=== PATIENT | female | born 1965 | race Caucasian/White ===

== ENCOUNTER 2016-11-04 06:59 | Emergency (ER) | payer OTHER ==
[~2016-11-04] VITALS: Ht 160 cm; Wt 77.0 kg
[~2016-11-04 06:59] MED LIST: ATOR40TA16 PO; B-COTAB27 PO; BIOTCAP PO; CULTCAP2; GNP3TAB; MELA10TA; ZOFR8TAB PO
[2016-11-04 07:05] VITALS: BP 173/89; PULSE 95; RESP 20; TEMP 97.9; O2SAT 97
[2016-11-04] MEDS ORDERED: SODIUM CHLOR 0.9% 1000 ML INJ 1,000 ML IV SCH (07:12)
[2016-11-04] MEDS ORDERED: FAMOTIDINE 20 MG/2 ML VIAL IV PUSH ONE (07:15)
[2016-11-04] MEDS ORDERED: ALUMINUM/MAGNESIUM/SIMETH 30 ML CUP PO ONE (07:15)
[2016-11-04] MEDS ORDERED: CARA1TAB6 PO (07:15)
[2016-11-04] MEDS ORDERED: PROM25TA10 PO (07:15)
[2016-11-04] MEDS ORDERED: ONDANSETRON HCL 4 MG/2 ML VIAL IVP ONE (07:15)
[2016-11-04] MEDS ORDERED: LIDOCAINE VISCOUS 2% SOLN 15 ML UDC PO ONE (07:15)
[2016-11-04] MEDS ORDERED: SODIUM CHLORIDE 0.9% FLUSH 10 ML FLUSH IV FLUSH PRN (07:15)
--- NOTE | 2016-11-04 07:18 | PD ---
HPI Chief Complaint: nausea and vomiting Time Seen by Provider: 07:12 Travel History International Travel<30 days: No Contact w/Intl Traveler<30days: No History of Present Illness HPI Patient is a 50-year-old female with history of chronic and recurrent nausea with unknown etiology, bipolar disorder, GERD, presents to emergency room with complaints of nausea and vomiting. Patient reports that she woke up this morning around 5 AM and felt nauseous. Patient reports that she has had intractable nausea and vomiting since this morning. Patient has taken Zofran as well as Phenergan this morning without relief of her symptoms. She does see Dr. Leiva (math and physics instructor) for these symptoms. Patient denies any fevers or chills, denies any sick contacts. Denies any recent travels. She denies any chest pain or shortness breath at this time. Patient reports that she felt final yesterday, she did have a hamburger for dinner and tolerated it without difficultly. PFSH Past Medical History Blood Disorders: No Anxiety: Yes Depression: Yes Cancer: No Cardiac Catheterization: Yes Cardiovascular Problems: Yes (AGE 34 HAD A CARDIAC CATH PT STATES IT WAS NEGATIVE) High Cholesterol: Yes Diabetes: Yes (HAS BEEN ON MEDS BEFORE BORDERLINE) Diminished Hearing: No Endocrine: Yes Gastrointestinal Disorders: Yes (DIVERTICULITIS) GERD: No Genitourinary: No Hepatitis: No Hiatal Hernia: No Immune Disorder: No Musculoskeletal: No Neurologic: No Psychiatric: Yes (manic depressive d/o) Reproductive: No Respiratory: No Thyroid Disease: No : 8 Para: 3 Miscarriage: 3 : 2 Tubal Ligation: Yes Past Surgical History Abdominal Surgery: Yes ("1 FOOT OF BOWEL REMOVED DUE TO DIVERTICULITIS") Section: Yes (x2) Gynecologic Surgery: Yes (HYSTERECTOMY, TUBAL C SECTION X 2) Hysterectomy: Yes (partial) Other Surgery: Yes (DIVERTICULI REPAIR EXPLORATORY SX, LEFT BREAST LUMP REMOVED ) Social History Alcohol Use: No Tobacco Use: No Substance Use: Yes (MARIJUANA EVERY DAY) Allergies-Medications (Allergen,Severity, Reaction): Coded Allergies: acetaminophen (Unverified Allergy, Severe, Itching, 11/04/16) hydrocodone (Unverified Allergy, Severe, ITCHING, 11/04/16) AND FAMILY OF CETS oxycodone (Unverified Allergy, Severe, Itching, 11/04/16) propoxyphene (Unverified Allergy, Severe, Itching, 11/04/16) Reported Meds & Prescriptions Reported Meds & Active Scripts Active Atorvastatin (Atorvastatin Calcium) 40 Mg Tab 40 Mg PO HS Reported Phenergan (Promethazine HCl) 25 Mg Tablet 25 Mg PO Q6H PRN Carafate (Sucralfate) 1 Gram Tab 1 Gm PO QID On empty stomach Review of Systems General / Constitutional: No: Fever Eyes: No: Visual changes HENT: No: Headaches Cardiovascular: No: Chest Pain or Discomfort Respiratory: No: Shortness of Breath Gastrointestinal: Positive: Nausea, Vomiting, Abdominal Pain Genitourinary: No: Dysuria Musculoskeletal: No: Pain Skin: No Rash Neurologic: No: Weakness Psychiatric: No: Depression Endocrine: No: Polydipsia Hematologic/Lymphatic: No: Easy Bruising Physical Exam Narrative GENERAL: moderate distress SKIN: Focused skin assessment warm/dry. HEAD: Atraumatic. Normocephalic. EYES: Pupils equal and round. No scleral icterus. No injection or drainage. ENT: No nasal bleeding or discharge. Mucous membranes pink and moist. NECK: Trachea midline. No JVD. CARDIOVASCULAR: Regular rate and rhythm. No murmur appreciated. RESPIRATORY: No accessory muscle use. Clear to auscultation. Breath sounds equal bilaterally. GASTROINTESTINAL: Abdomen soft, mildly tender to epigastrium, nondistended. Hepatic and splenic margins not palpable. MUSCULOSKELETAL: No obvious deformities. No clubbing. No cyanosis. No edema. NEUROLOGICAL: Awake and alert. No obvious cranial nerve deficits. Motor grossly within normal limits. Normal speech. PSYCHIATRIC: Appropriate mood and affect; insight and judgment normal. Data Data Last Documented VS Vital Signs Date Time Temp Pulse Resp B/P (MAP) Pulse Ox O2 Delivery O2 Flow Rate FiO2 11/04/16 08:38 88 18 151/72 (98) 98 Room Air 11/04/16 07:05 97.9 Orders Orders Complete Blood Count With Diff (11/04/16 07:12) Comprehensive Metabolic Panel (11/04/16 07:12) Lipase (11/04/16 07:12) Prothrombin Time / Inr (Pt) (11/04/16 07:12) Act Partial Throm Time (Ptt) (11/04/16 07:12) Urinalysis - C+S If Indicated (11/04/16 07:12) Iv Access Insert/Monitor (11/04/16 07:12) Ecg Monitoring (11/04/16 07:12) Oximetry (11/04/16 07:12) Ondansetron Inj (Zofran Inj) (11/04/16 07:15) Sodium Chlor 0.9% 1000 Ml Inj (Ns 1000 M (11/04/16 07:12) Sodium Chloride 0.9% Flush (Ns Flush) (11/04/16 07:15) Electrocardiogram (11/04/16 07:12) Famotidine Inj (Pepcid Inj) (11/04/16 07:15) Al-Mag Hy-Si 40-40-4 Mg/Ml Liq (Mag-Al P (11/04/16 07:15) Lidocaine 2% Viscous (Xylocaine 2% Visco (11/04/16 07:15) Ondansetron Inj (Zofran Inj) (11/04/16 08:15) Labs Laboratory Tests Test 11/04/16 07:37 11/04/16 08:10 White Blood Count 11.2 TH/MM3 Red Blood Count 5.14 MIL/MM3 Hemoglobin 15.6 GM/DL Hematocrit 45.4 % Mean Corpuscular Volume 88.3 FL Mean Corpuscular Hemoglobin 30.3 PG Mean Corpuscular Hemoglobin Concent 34.3 % Red Cell Distribution Width 12.3 % Platelet Count 225 TH/MM3 Mean Platelet Volume 9.0 FL Neutrophils (%) (Auto) 74.9 % Lymphocytes (%) (Auto) 18.9 % Monocytes (%) (Auto) 2.8 % Eosinophils (%) (Auto) 2.8 % Basophils (%) (Auto) 0.6 % Neutrophils # (Auto) 8.4 TH/MM3 Lymphocytes # (Auto) 2.1 TH/MM3 Monocytes # (Auto) 0.3 TH/MM3 Eosinophils # (Auto) 0.3 TH/MM3 Basophils # (Auto) 0.1 TH/MM3 CBC Comment AUTO DIFF Differential Comment AUTO DIFF CONFIRMED Prothrombin Time 10.4 SEC Prothromb Time International Ratio 0.9 RATIO Activated Partial Thromboplast Time 26.3 SEC Blood Urea Nitrogen 12 MG/DL Creatinine 1.00 MG/DL Random Glucose 255 MG/DL Total Protein 7.5 GM/DL Albumin 4.0 GM/DL Calcium Level 8.6 MG/DL Alkaline Phosphatase 77 U/L Aspartate Amino Transf (AST/SGOT) 33 U/L Alanine Aminotransferase (ALT/SGPT) 47 U/L Total Bilirubin 0.2 MG/DL Sodium Level 139 MEQ/L Potassium Level 4.1 MEQ/L Chloride Level 106 MEQ/L Carbon Dioxide Level 22.8 MEQ/L Anion Gap 10 MEQ/L Estimat Glomerular Filtration Rate 59 ML/MIN Lipase 201 U/L Urine Collection Type CLEAN CATCH Urine Color YELLOW Urine Turbidity SLIGHT Urine pH 5.5 Urine Specific [place] 1.027 Urine Protein NEG mg/dL Urine Glucose (UA) NEG mg/dL Urine Ketones TRACE mg/dL Urine Occult Blood NEG Urine Nitrite NEG Urine Bilirubin NEG Urine Leukocyte Esterase TRACE Urine WBC 3-5 /hpf Urine Squamous Epithelial Cells 6-8 /hpf Urine Amorphous Sediment MOD Microscopic Urinalysis Comment CULT NOT INDICATED Urine Collection Time 0810 MDM Medical Decision Making Medical Screen Exam Complete: Yes Emergency Medical Condition: Yes Interpretation(s) EKG at 0721: NSR at 87BPM, qt/qtc: 361/405, no acute st or t wave changes, non acute ekg Differential Diagnosis Differential includes gastritis, gastroenteritis, electrolyte abnormality, chronic and recurrent nausea, GERD, Gastroenteritis, ACS though unlikely Narrative Course Patient is a 50-year-old female who presents to emergency room with complaints of acute onset nausea and vomiting since 5 AM this morning. She does see Dr. Leiva (math and physics instructor) for treatment of her symptoms - reports that she took zofran as well as phenergen this morning with no relief of symptoms. Patient was placed on a radio communications mechanician upon arrival to emergency room. On evaluation, patient has mild epigastric pain. Plan to obtain lab work including liver function tests, EKG. Plan to hydrate patient, will administer antiemetics and monitor patient. Patient reevaluated, patient reports that she is feeling much better at this time. Reports near resolution of nausea. Abdomen is soft, nt/nd, no peritoneals signs. I reviewed all lab results with patient in detail. Patient requesting to be discharged to home. She will follow up with her math and physics instructor as outpatient. Signs and symptoms of when to return to the ER was reviewed with patient in detail. Vital Signs Date Time Temp Pulse Resp B/P (MAP) Pulse Ox O2 Delivery O2 Flow Rate FiO2 11/04/16 07:19 97 Room Air 11/04/16 07:05 97.9 95 20 173/89 (117) 97 CBC & BMP Diagram 11/04/16 07:37 Total Protein 7.5, Albumin 4.0, Calcium Level 8.6, Alkaline Phosphatase 77, Aspartate Amino Transf (AST/SGOT) 33, Alanine Aminotransferase (ALT/SGPT) 47, Total Bilirubin 0.2 Diagnosis Primary Impression: Nausea & vomiting Qualified Codes: R11.2 - Nausea with vomiting, unspecified Additional Impressions: Abdominal pain Qualified Codes: R10.13 - Epigastric pain Dehydration Patient Instructions: General Instructions Additional Instructions: Please follow up with your math and physics instructor as outpatient Return to ER as needed Return to ER if symptoms worsen or progress Please eat a bland diet and drink plenty of fluids Disposition: 01 DISCHARGE HOME Condition: Stable Rianna Peralta DO Nov 04, 2016 07:18
[2016-11-04 07:19] VITALS: O2SAT 97
[2016-11-04 07:47] LABS: AUTOMATED NEUTROPHIL # 8.4 TH/MM3 (1.8-7.7); BASOPHIL # 0.1 TH/MM3 (0-0.2); BASOPHIL % 0.6 % (0.0-2.0); EOSINOPHIL # 0.3 TH/MM3 (0-0.4); EOSINOPHIL % 2.8 % (0.0-4.0); HEMATOCRIT 45.4 % (35.0-46.0); LYMPH % 18.9 % (9.0-44.0); LYMPHOCYTE # 2.1 TH/MM3 (1.0-4.8); MEAN CELL VOLUME 88.3 FL (80.0-100.0); MEAN CORPUSCULAR HEMOGLOBIN 30.3 PG (27.0-34.0); MEAN CORPUSCULAR HGB CONC 34.3 % (32.0-36.0); MONO % 2.8 % (0.0-8.0); NEUT % 74.9 % (16.0-70.0); PLATELET COUNT 225 TH/MM3 (150-450); RED BLOOD COUNT 5.14 MIL/MM3 (4.00-5.30); RED CELL DISTRIBUTION WIDTH 12.3 % (11.6-17.2); WHITE BLOOD COUNT 11.2 TH/MM3 (4.0-11.0)
[2016-11-04 07:51] LABS: CHLORIDE 106 MEQ/L (98-107); HEMO FLAGS AUTO DIFF; POTASSIUM 4.1 MEQ/L (3.5-5.1); SODIUM (NA) 139 MEQ/L (136-145)
[2016-11-04 07:56] LABS: ANION GAP 10 MEQ/L (5-15); APTT (PATIENT) 26.3 SEC (24.3-30.1); BICARBONATE 22.8 MEQ/L (21.0-32.0); BLOOD UREA NITROGEN 12 MG/DL (7-18); INTERNATIONAL NORMALIZED RATIO 0.9 RATIO; PROTHROMBIN TIME - PATIENT 10.4 SEC (9.8-11.6)
[2016-11-04 07:58] LABS: ALT (GPT) 47 U/L (10-53)
[2016-11-04 07:59] LABS: AST (GOT) 33 U/L (15-37); GLOMERULAR FILTRATION RATE 59 ML/MIN (>89)
[2016-11-04 08:00] LABS: TOTAL BILIRUBIN ADULT 0.2 MG/DL (0.2-1.0)
[2016-11-04 08:01] LABS: ALKALINE PHOSPHATASE 77 U/L (45-117)
[2016-11-04] MEDS ORDERED: ONDANSETRON HCL 4 MG/2 ML VIAL IV PUSH ONE (08:15)
[2016-11-04 08:21] LABS: BLOOD, URINE NEG (NEG); GLUCOSE,URINE NEG (NEG); KETONE, URINE TRACE mg/dL (NEG); NITRITE,URINE NEG (NEG); PH, URINE 5.5 (5.0-8.5)
[2016-11-04 08:24] LABS: METHOD OF COLLECTION CLEAN CATCH; URINE COLOR YELLOW (YELLW/STRAW)
[2016-11-04 08:27] LABS: COMMENT (UR) CULT NOT INDICATED; COMMENT2 (UR) MUCOUS PRESENT; CULTURE IF INDICATED CULT NOT INDICATED
[2016-11-04 08:30] LABS: SCAN/DIFF AUTO DIFF CONFIRMED
[2016-11-04 08:38] VITALS: BP 151/72; PULSE 88; RESP 18; O2SAT 98
--- NOTE | 2016-11-05 07:58 | EKG ---
Date Performed: 11/04/2016 Time Performed: 07:21:13 PTAGE: 50 years EKG: Sinus rhythm NORMAL ECG PREVIOUS TRACING : 11/20/2015 06.30 Since previous tracing, no significant change. DOCTOR: Ricardo Salmon Interpretating Date/Time 11/05/2016 07:56:39
== END 2016-11-04 08:50 | disposition home or self-care (01) ==
LOC: PHED 06:59
DX: R11.2 Nausea with vomiting, unspecified (principal); R10.13 Epigastric pain; E86.0 Dehydration
CPT/HCPCS: 80053; 81001; 83690; 85025; 85610; 85730; 93005; 96361; 96374; 96375; 96376; 99284; J2405; J7030

== ENCOUNTER 2016-12-15 06:40 | Emergency (ER) | payer OTHER ==
[~2016-12-15] VITALS: Ht 160 cm; Wt 71.0 kg
[~2016-12-15 06:40] MED LIST changes: -B-COTAB27 PO; -BIOTCAP PO; +CARA1TAB6 PO; -CULTCAP2; -GNP3TAB; -MELA10TA; +PROM25TA10 PO; -ZOFR8TAB PO
[2016-12-15 06:45] VITALS: BP 140/87; PULSE 101; RESP 18; TEMP 97.5; O2SAT 99
[2016-12-15 06:47] VITALS: BP 179/112; PULSE 108; RESP 20; TEMP 98.1; O2SAT 98
--- NOTE | 2016-12-15 06:49 | PD ---
HPI Chief Complaint: abdominal pain Time Seen by Provider: 06:49 Travel History International Travel<30 days: No Contact w/Intl Traveler<30days: No Traveled to known affect area: No History of Present Illness HPI 51-year-old female came in with history of severe abdominal pain that started 2 days ago. Patient is in significant distress and anxious and not a good historian at this point. I have obtained most of the history from her daughter. As per her she has had this kind of pain for past 2 years. She has a GI specialist whose has worked her up significantly with upper endoscopy and an MRI one week ago which was negative. Patient has history of diverticulitis and had partial colectomy couple years ago as well. She has been nauseous and trying to vomit but not much is coming out. Patient has history of anxiety. She was tachycardic in the ER. [facility] Past Medical History Narrative Medical List of her past medical, surgical, social and family history was reviewed from the nursing note. Blood Disorders: No Anxiety: Yes Depression: Yes Cancer: No Cardiac Catheterization: Yes Cardiovascular Problems: Yes (AGE 34 HAD A CARDIAC CATH PT STATES IT WAS NEGATIVE) High Cholesterol: Yes Diabetes: Yes (HAS BEEN ON MEDS BEFORE BORDERLINE) Diminished Hearing: No Endocrine: Yes Gastrointestinal Disorders: Yes (DIVERTICULITIS) GERD: No Genitourinary: No Hepatitis: No Hiatal Hernia: No Immune Disorder: No Musculoskeletal: No Neurologic: No Psychiatric: Yes (manic depressive d/o) Reproductive: No Respiratory: No Thyroid Disease: No : 8 Para: 3 Miscarriage: 3 : 2 Tubal Ligation: Yes Past Surgical History Abdominal Surgery: Yes ("1 FOOT OF BOWEL REMOVED DUE TO DIVERTICULITIS") Section: Yes (x2) Gynecologic Surgery: Yes (HYSTERECTOMY, TUBAL C SECTION X 2) Hysterectomy: Yes (partial) Other Surgery: Yes (DIVERTICULI REPAIR EXPLORATORY SX, LEFT BREAST LUMP REMOVED ) Social History Alcohol Use: No Tobacco Use: No Substance Use: Yes (MARIJUANA EVERY DAY) Allergies-Medications (Allergen,Severity, Reaction): Coded Allergies: acetaminophen (Verified Allergy, Severe, Itching, 12/15/16) hydrocodone (Verified Allergy, Severe, ITCHING, 12/15/16) AND FAMILY OF CETS oxycodone (Verified Allergy, Severe, Itching, 12/15/16) propoxyphene (Verified Allergy, Severe, Itching, 12/15/16) Comments List of her allergies reviewed from the nursing note. Reported Meds & Prescriptions Reported Meds & Active Scripts Active Reglan (Metoclopramide HCl) 10 Mg Tab 10 Mg PO QID Atorvastatin (Atorvastatin Calcium) 40 Mg Tab 40 Mg PO HS Reported Phenergan (Promethazine HCl) 25 Mg Tablet 25 Mg PO Q6H PRN Carafate (Sucralfate) 1 Gram Tab 1 Gm PO QID On empty stomach Narrative Medication List of her home medications reviewed from the nursing note. Review of Systems Except as stated in HPI: all other systems reviewed are Neg Gastrointestinal: Positive: Nausea, Vomiting, Abdominal Pain Physical Exam Narrative GENERAL: Awake, alert, significant distress, extremely anxious SKIN: Focused skin assessment warm/dry. HEAD: Atraumatic. Normocephalic. EYES: Pupils equal and round. No scleral icterus. No injection or drainage. ENT: No nasal bleeding or discharge. Mucous membranes pink and moist. NECK: Trachea midline. No JVD. CARDIOVASCULAR: Regular rate and rhythm. No murmur appreciated. RESPIRATORY: No accessory muscle use. Clear to auscultation. Breath sounds equal bilaterally. GASTROINTESTINAL: Abdomen soft, non-tender, nondistended. Hepatic and splenic margins not palpable. MUSCULOSKELETAL: No obvious deformities. No clubbing. No cyanosis. No edema. NEUROLOGICAL: Awake and alert. No obvious cranial nerve deficits. Motor grossly within normal limits. Normal speech. PSYCHIATRIC: Appropriate mood and affect; insight and judgment normal. Data Data Last Documented VS Orders Orders Complete Blood Count With Diff (12/15/16 06:54) Comprehensive Metabolic Panel (12/15/16 06:54) Lipase (12/15/16 06:54) Iv Access Insert/Monitor (12/15/16 06:54) Ecg Monitoring (12/15/16 06:54) Oximetry (12/15/16 06:54) Sodium Chlor 0.9% 1000 Ml Inj (Ns 1000 M (12/15/16 06:54) Sodium Chloride 0.9% Flush (Ns Flush) (12/15/16 07:00) Lorazepam Inj (Ativan Inj) (12/15/16 07:00) Abdomen, Flat & Upright (12/15/16 07:21) Lorazepam Inj (Ativan Inj) (12/15/16 09:15) Ed Discharge Order (12/15/16 09:10) Labs Laboratory Tests Test 12/15/16 06:50 White Blood Count 14.4 TH/MM3 Red Blood Count 5.02 MIL/MM3 Hemoglobin 15.7 GM/DL Hematocrit 44.8 % Mean Corpuscular Volume 89.3 FL Mean Corpuscular Hemoglobin 31.2 PG Mean Corpuscular Hemoglobin Concent 35.0 % Red Cell Distribution Width 13.6 % Platelet Count 302 TH/MM3 Mean Platelet Volume 9.2 FL Neutrophils (%) (Auto) 78.1 % Lymphocytes (%) (Auto) 16.4 % Monocytes (%) (Auto) 4.0 % Eosinophils (%) (Auto) 1.1 % Basophils (%) (Auto) 0.4 % Neutrophils # (Auto) 11.3 TH/MM3 Lymphocytes # (Auto) 2.4 TH/MM3 Monocytes # (Auto) 0.6 TH/MM3 Eosinophils # (Auto) 0.2 TH/MM3 Basophils # (Auto) 0.1 TH/MM3 CBC Comment DIFF FINAL Differential Comment Blood Urea Nitrogen 12 MG/DL Creatinine 1.07 MG/DL Random Glucose 232 MG/DL Total Protein 7.7 GM/DL Albumin 4.3 GM/DL Calcium Level 9.5 MG/DL Alkaline Phosphatase 77 U/L Aspartate Amino Transf (AST/SGOT) 28 U/L Alanine Aminotransferase (ALT/SGPT) 43 U/L Total Bilirubin 0.4 MG/DL Sodium Level 139 MEQ/L Potassium Level 3.9 MEQ/L Chloride Level 108 MEQ/L Carbon Dioxide Level 19.4 MEQ/L Anion Gap 12 MEQ/L Estimat Glomerular Filtration Rate 54 ML/MIN Lipase 132 U/L [facility] Medical Decision Making Medical Screen Exam Complete: Yes Emergency Medical Condition: Yes Medical Record Reviewed: Yes Differential Diagnosis Cyclic vomiting syndrome, small bowel obstruction, acute gastritis Narrative Course 7:17 AM patient was given IV fluid bolus and IV Ativan. Awaiting for the blood test result. Case has been signed over to the oncoming ER physician. Procedures EKG Prior to Arrival: No Scripts Metoclopramide (Reglan) 10 Mg Tab 10 MG PO QID, #20 TAB 0 Refills Prov: Al Dunbar MD 12/15/16 Loy Tomlinson MD Dec 15, 2016 06:49
[2016-12-15] MEDS ORDERED: SODIUM CHLOR 0.9% 1000 ML INJ 1,000 ML IV SCH (06:54)
[2016-12-15] MEDS ORDERED: SODIUM CHLORIDE 0.9% FLUSH 10 ML FLUSH IV FLUSH PRN (07:00)
[2016-12-15] MEDS ORDERED: LORazepam 2 MG/ML VIAL IV PUSH ONE ×2 (07:00→09:15)
[2016-12-15 07:04] VITALS: O2SAT 97
--- NOTE | 2016-12-15 07:31 | PD ---
Physical Exam Date Seen by Provider: Dec 15, 2016 Narrative GENERAL: SKIN: Warm and dry. HEAD: Atraumatic. Normocephalic. EYES: Pupils equal and round. No scleral icterus. No injection or drainage. ENT: No nasal bleeding or discharge. Mucous membranes pink and moist. NECK: Trachea midline. No JVD. CARDIOVASCULAR: Regular rate and rhythm. RESPIRATORY: No accessory muscle use. Clear to auscultation. Breath sounds equal bilaterally. GASTROINTESTINAL: Abdomen soft, non-tender, nondistended. however hypoactive bowel sounds appreciated but without rebound/guarding/rigidity MUSCULOSKELETAL: Extremities without clubbing, cyanosis, or edema. No obvious deformities. NEUROLOGICAL: Awake and alert. No obvious cranial nerve deficits. Motor grossly within normal limits. Five out of 5 muscle strength in the arms and legs. Normal speech. PSYCHIATRIC: Appropriate mood and affect; insight and judgment normal. Data Data Last Documented VS Vital Signs Date Time Temp Pulse Resp B/P (MAP) Pulse Ox O2 Delivery O2 Flow Rate FiO2 12/15/16 07:04 97 Room Air 12/15/16 06:47 98.1 108 20 Orders Orders Complete Blood Count With Diff (12/15/16 06:54) Comprehensive Metabolic Panel (12/15/16 06:54) Lipase (12/15/16 06:54) Iv Access Insert/Monitor (12/15/16 06:54) Ecg Monitoring (12/15/16 06:54) Oximetry (12/15/16 06:54) Sodium Chlor 0.9% 1000 Ml Inj (Ns 1000 M (12/15/16 06:54) Sodium Chloride 0.9% Flush (Ns Flush) (12/15/16 07:00) Lorazepam Inj (Ativan Inj) (12/15/16 07:00) Abdomen, Flat & Upright (12/15/16 07:21) Labs Laboratory Tests Test 12/15/16 06:50 White Blood Count 14.4 TH/MM3 Red Blood Count 5.02 MIL/MM3 Hemoglobin 15.7 GM/DL Hematocrit 44.8 % Mean Corpuscular Volume 89.3 FL Mean Corpuscular Hemoglobin 31.2 PG Mean Corpuscular Hemoglobin Concent 35.0 % Red Cell Distribution Width 13.6 % Platelet Count 302 TH/MM3 Mean Platelet Volume 9.2 FL Neutrophils (%) (Auto) 78.1 % Lymphocytes (%) (Auto) 16.4 % Monocytes (%) (Auto) 4.0 % Eosinophils (%) (Auto) 1.1 % Basophils (%) (Auto) 0.4 % Neutrophils # (Auto) 11.3 TH/MM3 Lymphocytes # (Auto) 2.4 TH/MM3 Monocytes # (Auto) 0.6 TH/MM3 Eosinophils # (Auto) 0.2 TH/MM3 Basophils # (Auto) 0.1 TH/MM3 CBC Comment DIFF FINAL Differential Comment Blood Urea Nitrogen 12 MG/DL Creatinine 1.07 MG/DL Random Glucose 232 MG/DL Total Protein 7.7 GM/DL Albumin 4.3 GM/DL Calcium Level 9.5 MG/DL Alkaline Phosphatase 77 U/L Aspartate Amino Transf (AST/SGOT) 28 U/L Alanine Aminotransferase (ALT/SGPT) 43 U/L Total Bilirubin 0.4 MG/DL Sodium Level 139 MEQ/L Potassium Level 3.9 MEQ/L Chloride Level 108 MEQ/L Carbon Dioxide Level 19.4 MEQ/L Anion Gap 12 MEQ/L Estimat Glomerular Filtration Rate 54 ML/MIN Lipase 132 U/L [facility] Medical Record Reviewed: Yes Supervised Visit with OMAR: No Narrative Course patient reevaluation, patient no longer vomiting, no rebound/guarding/rigidity noted. patient abd series are neg for a/f levels and no free air. no electrolyte abnl, no pancreatitis, no elev lft's will d/c Diagnosis Primary Impression: vomiting (resolved) Patient Instructions: General Instructions Additional Instruction: please follow up with your gastrointestinal specialist for further evaluation and care Scripts Metoclopramide (Reglan) 10 Mg Tab 10 MG PO QID, #20 TAB 0 Refills Prov: Al Dunbar MD 12/15/16 Disposition: 01 DISCHARGE HOME Condition: Stable Al Dunbar MD Dec 15, 2016 07:31
[2016-12-15 07:50] LABS: AUTOMATED NEUTROPHIL # 11.3 TH/MM3 (1.8-7.7); BASOPHIL # 0.1 TH/MM3 (0-0.2); BASOPHIL % 0.4 % (0.0-2.0); EOSINOPHIL # 0.2 TH/MM3 (0-0.4); EOSINOPHIL % 1.1 % (0.0-4.0); HEMATOCRIT 44.8 % (35.0-46.0); HEMOGLOBIN 15.7 GM/DL (11.6-15.3); LYMPH % 16.4 % (9.0-44.0); LYMPHOCYTE # 2.4 TH/MM3 (1.0-4.8); MEAN CELL VOLUME 89.3 FL (80.0-100.0); MEAN CORPUSCULAR HEMOGLOBIN 31.2 PG (27.0-34.0); MEAN PLATELET VOLUME 9.2 FL (7.0-11.0); MONOCYTE # 0.6 TH/MM3 (0-0.9); NEUT % 78.1 % (16.0-70.0); PLATELET COUNT 302 TH/MM3 (150-450); RED BLOOD COUNT 5.02 MIL/MM3 (4.00-5.30); RED CELL DISTRIBUTION WIDTH 13.6 % (11.6-17.2); WHITE BLOOD COUNT 14.4 TH/MM3 (4.0-11.0)
[2016-12-15 08:08] LABS: ALKALINE PHOSPHATASE 77 U/L (45-117); ALT (GPT) 43 U/L (10-53); TOTAL BILIRUBIN ADULT 0.4 MG/DL (0.2-1.0); TOTAL PROTEIN 7.7 GM/DL (6.4-8.2)
[2016-12-15 08:11] LABS: ALBUMIN 4.3 GM/DL (3.4-5.0); AST (GOT) 28 U/L (15-37); BICARBONATE 19.4 MEQ/L (21.0-32.0); BLOOD UREA NITROGEN 12 MG/DL (7-18); CALCIUM 9.5 MG/DL (8.5-10.1); CHLORIDE 108 MEQ/L (98-107); CREATININE 1.07 MG/DL (0.50-1.00); GLOMERULAR FILTRATION RATE 54 ML/MIN (>89); GLUCOSE,RANDOM 232 MG/DL (74-106); LIPASE 132 U/L (73-393); SODIUM (NA) 139 MEQ/L (136-145)
[2016-12-15] MEDS ORDERED: REGL10TA5 PO (09:09)
--- NOTE | 2016-12-15 09:16 | RADRPT ---
EXAM DATE/TIME: 12/15/2016 08:49 [place] COMPARISON: ABDOMEN FLAT & UPRIGHT, August 02, 2013, 19:12. INDICATIONS : Vomiting for past 5 years. MEDICAL HISTORY : Diverticulitis. Hypercholesterolemia. SURGICAL HISTORY : Hysterectomy. section. Tubal ligation. Bladder sling. ENCOUNTER: Initial ACUITY: 1 day PAIN SCORE: 8/10 LOCATION: Across abdomen. FINDINGS: Moderate amount of stool throughout the colon. General paucity of small bowel gas. No dilated loops o f small bowel or air-fluid levels. No free air or pneumatosis. No abnormal calcifications. Tubal liga tion clips in place. Right upper quadrant surgical clips. Remainder of exam is unchanged. CONCLUSION: 1. Nonobstructive bowel gas pattern with colonic stool retention. Williams Wu MD on December 15, 2016 at 9:12 Board Certified Radiologist. This report was verified electronically.
== END 2016-12-15 10:35 | disposition home or self-care (01) ==
LOC: NEPE 06:40
DX: R11.2 Nausea with vomiting, unspecified (principal); R00.0 Tachycardia, unspecified; F41.9 Anxiety disorder, unspecified; F32.9 Major depressive disorder, single episode, unspecified; E78.00 Pure hypercholesterolemia, unspecified; E11.9 Type 2 diabetes mellitus without complications; F31.9 Bipolar disorder, unspecified; Z79.899 Other long term (current) drug therapy; Z87.19 Personal history of other diseases of the digestive system; Z88.5 Allergy status to narcotic agent
CPT/HCPCS: 74020; 80053; 83690; 85025; 96361; 96374; 96376; 99284; J2060; J7030

== ENCOUNTER 2017-01-10 02:25 | Emergency (ER) | payer OTHER ==
[~2017-01-10] VITALS: Ht 160 cm; Wt 74.5 kg
[~2017-01-10 02:25] MED LIST changes: +REGL10TA5 PO
[2017-01-10 02:30] VITALS: BP 141/87; PULSE 94; RESP 24; TEMP 98.1; O2SAT 98
[2017-01-10 02:41] VITALS: BP 141/87; PULSE 94; RESP 20; TEMP 98.1; O2SAT 98
--- NOTE | 2017-01-10 02:43 | PD ---
HPI Chief Complaint: GI Complaint Time Seen by Provider: 02:41 Travel History International Travel<30 days: No Contact w/Intl Traveler<30days: No Traveled to known affect area: No History of Present Illness HPI 51-year-old female patient with history of gastroparesis, has postcholecystectomy, frequent visits for chronic abdominal pain and vomiting, here because he started again night, vomiting 3 times, 810 periumbilical abdominal pains. 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 She denies any diarrhea, fevers, or other symptoms. She does not know exacerbating alleviating factors. She states it feels like her other episodes. Modifying Factors: None Associated Signs & Symptoms: Abdominal pains, nausea and vomiting Risk Factors: History of chronic abdominal pains, gastroparesis PFSH Past Medical History Blood Disorders: No Anxiety: Yes Depression: Yes Cancer: No Cardiac Catheterization: Yes Cardiovascular Problems: Yes High Cholesterol: Yes Diabetes: Yes (HX) Diminished Hearing: No Endocrine: Yes Gastrointestinal Disorders: Yes (DIVERTICULITIS) GERD: No Genitourinary: No Hepatitis: No Hiatal Hernia: No Immune Disorder: No Musculoskeletal: No Neurologic: No Psychiatric: Yes (manic depressive d/o) Reproductive: No Respiratory: No Thyroid Disease: No : 8 Para: 3 Miscarriage: 3 : 2 Tubal Ligation: Yes Past Surgical History Abdominal Surgery: Yes ("1 FOOT OF BOWEL REMOVED DUE TO DIVERTICULITIS") Section: Yes (x2) Cholecystectomy: Yes Gynecologic Surgery: Yes (HYSTERECTOMY, TUBAL C SECTION X 2) Hysterectomy: Yes (partial) Other Surgery: Yes (DIVERTICULI REPAIR EXPLORATORY SX, LEFT BREAST LUMP REMOVED ) Social History Alcohol Use: No Tobacco Use: No Substance Use: Yes (MARIJUANA EVERY DAY) Allergies-Medications (Allergen,Severity, Reaction): Coded Allergies: acetaminophen (Verified Allergy, Severe, Itching, 01/10/17) hydrocodone (Verified Allergy, Severe, ITCHING, 01/10/17) AND FAMILY OF CETS oxycodone (Verified Allergy, Severe, Itching, 01/10/17) propoxyphene (Verified Allergy, Severe, Itching, 01/10/17) Reported Meds & Prescriptions Reported Meds & Active Scripts Active Reglan (Metoclopramide HCl) 10 Mg Tab 10 Mg PO QID Atorvastatin (Atorvastatin Calcium) 40 Mg Tab 40 Mg PO HS Reported Zofran (Ondansetron HCl) 4 Mg Tab 4 Mg PO Q6HR PRN Phenergan (Promethazine HCl) 25 Mg Tablet 25 Mg PO Q6H PRN Carafate (Sucralfate) 1 Gram Tab 1 Gm PO QID On empty stomach Review of Systems Except as stated in HPI: all other systems reviewed are Neg Physical Exam Narrative GENERAL: Well-developed middle age white female patient who currently is fairly anxious, in moderate distress. Awake and oriented 3. SKIN: Focused skin assessment warm/dry. HEAD: Atraumatic. Normocephalic. EYES: Pupils equal and round. No scleral icterus. No injection or drainage. ENT: No nasal bleeding or discharge. Mucous membranes pink and moist. NECK: Trachea midline. No JVD. CARDIOVASCULAR: Regular rate and rhythm. No murmur appreciated. RESPIRATORY: No accessory muscle use. Clear to auscultation. Breath sounds equal bilaterally. GASTROINTESTINAL: Abdomen soft, mild periumbilical tenderness without guarding or rebound, nondistended. Hepatic and splenic margins not palpable. MUSCULOSKELETAL: No obvious deformities. No clubbing. No cyanosis. No edema. NEUROLOGICAL: Awake and alert. No obvious cranial nerve deficits. Motor grossly within normal limits. Normal speech. PSYCHIATRIC: Appropriate mood and affect; insight and judgment normal. Data Data Last Documented VS Vital Signs Date Time Temp Pulse Resp B/P (MAP) Pulse Ox O2 Delivery O2 Flow Rate FiO2 01/10/17 03:23 20 01/10/17 03:22 93 164/71 (102) 98 Room Air 01/10/17 02:41 98.1 Orders Orders Complete Blood Count With Diff (01/10/17 02:37) Comprehensive Metabolic Panel (01/10/17 02:37) Lipase (01/10/17 02:37) Iv Access Insert/Monitor (01/10/17 02:37) Ecg Monitoring (01/10/17 02:37) Oximetry (01/10/17 02:37) Sodium Chloride 0.9% Flush (Ns Flush) (01/10/17 02:45) Electrocardiogram (01/10/17 02:37) Metoclopramide Inj (Reglan Inj) (01/10/17 02:45) Diphenhydramine Inj (Benadryl Inj) (01/10/17 02:45) Sodium Chlorid 0.9% 500 Ml Inj (Ns 500 M (01/10/17 02:45) Abdomen, Flat & Upright (01/10/17 03:08) Lorazepam Inj (Ativan Inj) (01/10/17 03:30) Labs Laboratory Tests Test 01/10/17 02:50 White Blood Count 10.7 TH/MM3 Red Blood Count 5.13 MIL/MM3 Hemoglobin 15.3 GM/DL Hematocrit 45.7 % Mean Corpuscular Volume 89.0 FL Mean Corpuscular Hemoglobin 29.9 PG Mean Corpuscular Hemoglobin Concent 33.5 % Red Cell Distribution Width 12.7 % Platelet Count 241 TH/MM3 Mean Platelet Volume 8.8 FL Neutrophils (%) (Auto) 69.7 % Lymphocytes (%) (Auto) 24.0 % Monocytes (%) (Auto) 3.2 % Eosinophils (%) (Auto) 2.3 % Basophils (%) (Auto) 0.8 % Neutrophils # (Auto) 7.5 TH/MM3 Lymphocytes # (Auto) 2.6 TH/MM3 Monocytes # (Auto) 0.3 TH/MM3 Eosinophils # (Auto) 0.2 TH/MM3 Basophils # (Auto) 0.1 TH/MM3 CBC Comment DIFF FINAL Differential Comment Blood Urea Nitrogen 15 MG/DL Creatinine 0.94 MG/DL Random Glucose 193 MG/DL Total Protein 7.5 GM/DL Albumin 3.7 GM/DL Calcium Level 9.0 MG/DL Alkaline Phosphatase 86 U/L Aspartate Amino Transf (AST/SGOT) 10 U/L Alanine Aminotransferase (ALT/SGPT) 27 U/L Total Bilirubin 0.2 MG/DL Sodium Level 137 MEQ/L Potassium Level 3.9 MEQ/L Chloride Level 104 MEQ/L Carbon Dioxide Level 24.1 MEQ/L Anion Gap 9 MEQ/L Estimat Glomerular Filtration Rate 63 ML/MIN Lipase 226 U/L [facility] Medical Decision Making Medical Screen Exam Complete: Yes Emergency Medical Condition: Yes Medical Record Reviewed: Yes Interpretation(s) Laboratory Tests Test 01/10/17 02:50 Random Glucose 193 MG/DL (74-106) Aspartate Amino Transf (AST/SGOT) 10 U/L (15-37) Estimat Glomerular Filtration Rate 63 ML/MIN (>89) Last 24 hours Impressions Abdomen X-Ray 01/10/17 0308 Signed Impressions: Service Date/Time: Tuesday, January 10, 2017 03:20 - CONCLUSION: Benign-appearing abdomen. Moderate stool in the colon. Tera Daniel MD Differential Diagnosis Anxiety attack versus gastroparesis versus pancreatitis versus gastritis versus dehydration versus metabolic issues Narrative Course X-ray did not show any signs of acute obstruction. Abdomen is fairly benign on evaluation. Lab work did not show significant metabolic issues. Patient was given Reglan, Benadryl, and Ativan in the ER. Ativan was given because she appears fairly anxious in the ER and there may be an anxiety component to this issue. On reevaluation at 4 AM, she is feeling completely improved, resting comfortably, pain is down to a 2 out of 10. At this point, my plan would be to release her with symptomatic relief for nausea vomiting and have her follow-up with GI. Return for any worsening in symptoms as necessary. The plan has been discussed with her and she states understanding. Diagnosis Primary Impression: Vomiting Med/Other Pt SpecificInfo: Prescription(s) given Scripts Metoclopramide (Reglan) 10 Mg Tab 10 MG PO QID, #20 TAB 0 Refills Prov: Enmanuel Sam MD 01/10/17 Disposition: 01 DISCHARGE HOME Condition: Stable Enmanuel Sam MD Jan 10, 2017 02:43
[2017-01-10] MEDS ORDERED: diphenhydrAMINE HCL 50 MG/ML VIAL IV PUSH ONE (02:45)
[2017-01-10] MEDS ORDERED: METOCLOPRAMIDE HCL 10 MG/2 ML VIAL IV PUSH ONE (02:45)
[2017-01-10] MEDS ORDERED: SODIUM CHLORIDE 0.9% FLUSH 10 ML FLUSH IV FLUSH PRN (02:45)
[2017-01-10] MEDS ORDERED: SODIUM CHLORID 0.9% 500 ML INJ 500 ML IV ONE (02:45)
[2017-01-10 02:58] LABS: AUTOMATED NEUTROPHIL # 7.5 TH/MM3 (1.8-7.7); BASOPHIL # 0.1 TH/MM3 (0-0.2); BASOPHIL % 0.8 % (0.0-2.0); EOSINOPHIL # 0.2 TH/MM3 (0-0.4); EOSINOPHIL % 2.3 % (0.0-4.0); HEMATOCRIT 45.7 % (35.0-46.0); LYMPHOCYTE # 2.6 TH/MM3 (1.0-4.8); MEAN CORPUSCULAR HEMOGLOBIN 29.9 PG (27.0-34.0); MEAN CORPUSCULAR HGB CONC 33.5 % (32.0-36.0); MONO % 3.2 % (0.0-8.0); NEUT % 69.7 % (16.0-70.0); PLATELET COUNT 241 TH/MM3 (150-450); RED BLOOD COUNT 5.13 MIL/MM3 (4.00-5.30); RED CELL DISTRIBUTION WIDTH 12.7 % (11.6-17.2); WHITE BLOOD COUNT 10.7 TH/MM3 (4.0-11.0)
[2017-01-10 03:03] LABS: HEMO FLAGS DIFF FINAL
[2017-01-10 03:05] LABS: CHLORIDE 104 MEQ/L (98-107); POTASSIUM 3.9 MEQ/L (3.5-5.1); SODIUM (NA) 137 MEQ/L (136-145)
[2017-01-10 03:09] LABS: ANION GAP 9 MEQ/L (5-15); BICARBONATE 24.1 MEQ/L (21.0-32.0)
[2017-01-10 03:10] LABS: BLOOD UREA NITROGEN 15 MG/DL (7-18)
[2017-01-10 03:12] LABS: ALT (GPT) 27 U/L (10-53); AST (GOT) 10 U/L (15-37); GLOMERULAR FILTRATION RATE 63 ML/MIN (>89)
[2017-01-10 03:14] LABS: TOTAL BILIRUBIN ADULT 0.2 MG/DL (0.2-1.0)
[2017-01-10 03:15] LABS: ALKALINE PHOSPHATASE 86 U/L (45-117)
[2017-01-10 03:22] VITALS: BP 164/71; PULSE 93; RESP 20; O2SAT 98
[2017-01-10] MEDS ORDERED: LORazepam 2 MG/ML VIAL IV PUSH ONE (03:30)
[2017-01-10] MEDS ORDERED: ZOFR4TAB PO (03:30)
--- NOTE | 2017-01-10 03:48 | RADRPT ---
EXAM DATE/TIME: 01/10/2017 03:20 [place] COMPARISON: ABDOMEN FLAT & UPRIGHT, December 15, 2016, 8:49. INDICATIONS : Abdominal pain and vomiting. MEDICAL HISTORY : Diverticulitis. Hypercholesterolemia. SURGICAL HISTORY : Hysterectomy. section. Tubal ligation. Bladder sling. ENCOUNTER: Initial ACUITY: 1 day PAIN SCORE: 10/10 LOCATION: Bilateral upper quadrant abdomen. FINDINGS: No small bowel, large bowel or gastric distention. No evidence of free air. Moderate stool throughout the colon. Cholecystectomy and tubal ligation clips are again noted. CONCLUSION: Benign-appearing abdomen. Moderate stool in the colon. Tera Daniel MD on January 10, 2017 at 3:46 Board Certified Radiologist. This report was verified electronically.
[2017-01-10] MEDS ORDERED: REGL10TA5 PO (04:03)
[2017-01-10 04:13] VITALS: BP 141/68
== END 2017-01-10 04:26 | disposition home or self-care (01) ==
LOC: PHED 02:25
DX: R11.10 Vomiting, unspecified (principal)
CPT/HCPCS: 74020; 80053; 83690; 85025; 96361; 96374; 96375; 99284; J1200; J2060; J2765; J7040

== ENCOUNTER 2017-02-15 03:00 | Emergency (ER) | payer OTHER ==
[~2017-02-15] VITALS: Ht 160 cm; Wt 76.0 kg
[~2017-02-15 03:00] MED LIST changes: +ZOFR4TAB PO
[2017-02-15 03:02] VITALS: BP 136/84; PULSE 94; RESP 18; TEMP 97.3; O2SAT 97
[2017-02-15 04:22] LABS: AUTOMATED NEUTROPHIL # 9.4 TH/MM3 (1.8-7.7); BASOPHIL # 0.1 TH/MM3 (0-0.2); EOSINOPHIL # 0.2 TH/MM3 (0-0.4); EOSINOPHIL % 1.6 % (0.0-4.0); HEMATOCRIT 48.1 % (35.0-46.0); HEMOGLOBIN 15.3 GM/DL (11.6-15.3); LYMPH % 16.8 % (9.0-44.0); LYMPHOCYTE # 2.1 TH/MM3 (1.0-4.8); MEAN CELL VOLUME 91.2 FL (80.0-100.0); MEAN CORPUSCULAR HGB CONC 31.8 % (32.0-36.0); MEAN PLATELET VOLUME 8.4 FL (7.0-11.0); MONO % 3.7 % (0.0-8.0); MONOCYTE # 0.5 TH/MM3 (0-0.9); NEUT % 76.9 % (16.0-70.0); PLATELET COUNT 252 TH/MM3 (150-450); RED BLOOD COUNT 5.27 MIL/MM3 (4.00-5.30); RED CELL DISTRIBUTION WIDTH 13.6 % (11.6-17.2); WHITE BLOOD COUNT 12.3 TH/MM3 (4.0-11.0)
[2017-02-15 04:31] LABS: CHLORIDE 105 MEQ/L (98-107); SODIUM (NA) 139 MEQ/L (136-145)
[2017-02-15 04:35] LABS: ALBUMIN 3.9 GM/DL (3.4-5.0); BLOOD UREA NITROGEN 13 MG/DL (7-18); CALCIUM 8.8 MG/DL (8.5-10.1); GLUCOSE,RANDOM 185 MG/DL (74-106); LIPASE 203 U/L (73-393)
[2017-02-15 04:38] LABS: ALT (GPT) 19 U/L (10-53); AST (GOT) 14 U/L (15-37); GLOMERULAR FILTRATION RATE 66 ML/MIN (>89)
[2017-02-15 04:40] LABS: TOTAL BILIRUBIN ADULT 0.2 MG/DL (0.2-1.0); TOTAL PROTEIN 7.4 GM/DL (6.4-8.2)
[2017-02-15 04:41] LABS: ALKALINE PHOSPHATASE 84 U/L (45-117)
[2017-02-15] MEDS ORDERED: SODIUM CHLOR 0.9% 1000 ML INJ 1,000 ML IV SCH ×2 (04:43→04:45)
[2017-02-15] MEDS ORDERED: FAMOTIDINE 20 MG/2 ML VIAL IV PUSH ONE (04:45)
[2017-02-15] MEDS ORDERED: ONDANSETRON HCL 4 MG/2 ML VIAL IVP ONE (04:45)
[2017-02-15] MEDS ORDERED: SODIUM CHLORIDE 0.9% FLUSH 10 ML FLUSH IV FLUSH PRN (04:45)
[2017-02-15] MEDS ORDERED: ONDANSETRON HCL 4 MG/2 ML VIAL IV ONE (04:45)
[2017-02-15] MEDS ORDERED: PANTOPRAZOLE SODIUM 40 MG VIAL IVP ONE (04:45)
--- NOTE | 2017-02-15 04:47 | PD ---
HPI Chief Complaint: GI Complaint Time Seen by Provider: 04:36 Travel History International Travel<30 days: No Contact w/Intl Traveler<30days: No Traveled to known affect area: No History of Present Illness HPI The patient is a 51-year-old female that has a onset of nausea and vomiting. She had a cholecystectomy in July of this year which helped reduce her symptoms. She is followed by Dr. 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 She is on Zantac and this is improved her symptoms. She occasionally gets relief with antacid as well. Tonight she has nausea and vomiting as well as midline epigastric pain. She denies vomiting any blood. She denies any fever. PFSH Past Medical History Blood Disorders: No Anxiety: Yes Depression: Yes Cancer: No Cardiac Catheterization: Yes Cardiovascular Problems: Yes High Cholesterol: Yes Diabetes: Yes (HX) Patient Takes Glucophage: No Diminished Hearing: No Endocrine: Yes Gastrointestinal Disorders: Yes (DIVERTICULITIS) GERD: No Genitourinary: No Hepatitis: No Hiatal Hernia: No Hypertension: No Immune Disorder: No Implanted Vascular Access Dvce: No Medical other: No Musculoskeletal: No Neurologic: No Psychiatric: Yes (manic depressive d/o) Reproductive: No Respiratory: No Thyroid Disease: No ?: Not : 8 Para: 3 Miscarriage: 3 : 2 Tubal Ligation: Yes Past Surgical History Abdominal Surgery: Yes ("1 FOOT OF BOWEL REMOVED DUE TO DIVERTICULITIS") Section: Yes (x2) Cholecystectomy: Yes Gynecologic Surgery: Yes (HYSTERECTOMY, TUBAL C SECTION X 2) Hysterectomy: Yes (partial) Other Surgery: Yes (DIVERTICULI REPAIR EXPLORATORY SX, LEFT BREAST LUMP REMOVED ) Social History Alcohol Use: No Tobacco Use: No Substance Use: Yes (MARIJUANA EVERY DAY) Allergies-Medications (Allergen,Severity, Reaction): Coded Allergies: acetaminophen (Verified Allergy, Severe, Itching, 01/10/17) hydrocodone (Verified Allergy, Severe, ITCHING, 01/10/17) AND FAMILY OF CETS oxycodone (Verified Allergy, Severe, Itching, 01/10/17) propoxyphene (Verified Allergy, Severe, Itching, 01/10/17) Reported Meds & Prescriptions Reported Meds & Active Scripts Active Reglan (Metoclopramide HCl) 10 Mg Tab 10 Mg PO QID Atorvastatin (Atorvastatin Calcium) 40 Mg Tab 40 Mg PO HS Reported Zofran (Ondansetron HCl) 4 Mg Tab 4 Mg PO Q6HR PRN Phenergan (Promethazine HCl) 25 Mg Tablet 25 Mg PO Q6H PRN Carafate (Sucralfate) 1 Gram Tab 1 Gm PO QID On empty stomach Review of Systems Except as stated in HPI: all other systems reviewed are Neg Physical Exam Narrative GENERAL: The patient appears slightly dehydrated in moderate apparent distress with her midline epigastric discomfort. Her vital signs are normal. SKIN: Focused skin assessment warm/dry. HEAD: Atraumatic. Normocephalic. EYES: Pupils equal and round. No scleral icterus. No injection or drainage. ENT: No nasal bleeding or discharge. Mucous membranes pink and moist. NECK: Trachea midline. No JVD. CARDIOVASCULAR: Regular rate and rhythm. No murmur appreciated. RESPIRATORY: No accessory muscle use. Clear to auscultation. Breath sounds equal bilaterally. GASTROINTESTINAL: Abdomen soft, with tenderness to direct palpation in midline epigastrium, nondistended. Hepatic and splenic margins not palpable. No guarding or rebound is present. MUSCULOSKELETAL: No obvious deformities. No clubbing. No cyanosis. No edema. NEUROLOGICAL: Awake and alert. No obvious cranial nerve deficits. Motor grossly within normal limits. Normal speech. PSYCHIATRIC: Appropriate mood and affect; insight and judgment normal. Data Data Last Documented VS Vital Signs Date Time Temp Pulse Resp B/P (MAP) Pulse Ox O2 Delivery O2 Flow Rate FiO2 02/15/17 03:02 97.3 94 18 136/84 (101) 97 Orders Orders Complete Blood Count With Diff (02/15/17 03:47) Comprehensive Metabolic Panel (02/15/17 03:47) Lipase (02/15/17 03:47) Urinalysis - C+S If Indicated (02/15/17 03:51) Iv Access Insert/Monitor (02/15/17 03:51) Oxygen Administration (02/15/17 03:51) Oximetry (02/15/17 03:51) Sodium Chlor 0.9% 1000 Ml Inj (Ns 1000 M (02/15/17 04:45) Ondansetron Inj (Zofran Inj) (02/15/17 04:45) Ondansetron Inj (Zofran Inj) (02/15/17 04:45) Pantoprazole Inj (Protonix Inj) (02/15/17 04:45) Sodium Chlor 0.9% 1000 Ml Inj (Ns 1000 M (02/15/17 04:43) Sodium Chloride 0.9% Flush (Ns Flush) (02/15/17 04:45) Famotidine Inj (Pepcid Inj) (02/15/17 04:45) Al-Mag Hy-Si 40-40-4 Mg/Ml Liq (Mag-Al P (02/15/17 05:00) Lidocaine 2% Viscous (Xylocaine 2% Visco (02/15/17 05:00) Labs Laboratory Tests Test 02/15/17 04:15 White Blood Count 12.3 TH/MM3 Red Blood Count 5.27 MIL/MM3 Hemoglobin 15.3 GM/DL Hematocrit 48.1 % Mean Corpuscular Volume 91.2 FL Mean Corpuscular Hemoglobin 29.0 PG Mean Corpuscular Hemoglobin Concent 31.8 % Red Cell Distribution Width 13.6 % Platelet Count 252 TH/MM3 Mean Platelet Volume 8.4 FL Neutrophils (%) (Auto) 76.9 % Lymphocytes (%) (Auto) 16.8 % Monocytes (%) (Auto) 3.7 % Eosinophils (%) (Auto) 1.6 % Basophils (%) (Auto) 1.0 % Neutrophils # (Auto) 9.4 TH/MM3 Lymphocytes # (Auto) 2.1 TH/MM3 Monocytes # (Auto) 0.5 TH/MM3 Eosinophils # (Auto) 0.2 TH/MM3 Basophils # (Auto) 0.1 TH/MM3 CBC Comment DIFF FINAL Differential Comment Blood Urea Nitrogen 13 MG/DL Creatinine 0.90 MG/DL Random Glucose 185 MG/DL Total Protein 7.4 GM/DL Albumin 3.9 GM/DL Calcium Level 8.8 MG/DL Alkaline Phosphatase 84 U/L Aspartate Amino Transf (AST/SGOT) 14 U/L Alanine Aminotransferase (ALT/SGPT) 19 U/L Total Bilirubin 0.2 MG/DL Sodium Level 139 MEQ/L Potassium Level 3.9 MEQ/L Chloride Level 105 MEQ/L Carbon Dioxide Level 22.0 MEQ/L Anion Gap 12 MEQ/L Estimat Glomerular Filtration Rate 66 ML/MIN Lipase 203 U/L [facility] Medical Decision Making Medical Screen Exam Complete: Yes Emergency Medical Condition: Yes Medical Record Reviewed: Yes Differential Diagnosis Ulcer pain, reflux esophagitis, gastritis, gastroparesis, electrolyte disorder Narrative Course It is now 0521 and the patient does feel better. She will be given prescriptions for Nexium, Compazine and she will take [id number] liquid Maalox/Mylanta. She needs to follow-up with her continuous yarn dyeing machine operator, hopefully this week. Impression: Reflux esophagitis Diagnosis Primary Impression: Reflux esophagitis Additional Instructions: When this disease exacerbates, use liquid Maalox/Mylanta, Zantac, Compazine for nausea and Nexium. Follow-up with your continuous yarn dyeing machine operator, hopefully this week. Med/Other Pt SpecificInfo: Prescription(s) given Scripts Prochlorperazine Maleate (Prochlorperazine Maleate) 10 Mg Tab 10 MG PO Q6H Y for NAUSEA OR VOMITING, #30 TAB 0 Refills Prov: Neftali Chavarria MD 02/15/[address] (Nexium) 40 Mg Capdr 40 MG PO DAILY, #30 CAP 0 Refills Prov: Neftali Chavarria MD 02/15/17 Disposition: 01 DISCHARGE HOME Condition: Stable Neftali Chavarria MD Feb 15, 2017 04:47
[2017-02-15] MEDS ORDERED: ALUMINUM/MAGNESIUM/SIMETH 30 ML CUP PO ONE (05:00)
[2017-02-15] MEDS ORDERED: LIDOCAINE VISCOUS 2% SOLN 15 ML UDC PO ONE (05:00)
[2017-02-15] MEDS ORDERED: NEXI40CA PO (05:26)
[2017-02-15] MEDS ORDERED: PROC10TA PO (05:26)
[2017-02-15 05:50] VITALS: BP 136/74
[2017-02-15 05:56] VITALS: BP 130/80
== END 2017-02-15 05:58 | disposition home or self-care (01) ==
LOC: PHED 03:00
DX: K21.0 Gastro-esophageal reflux disease with esophagitis (principal); F41.9 Anxiety disorder, unspecified; E78.00 Pure hypercholesterolemia, unspecified; E11.9 Type 2 diabetes mellitus without complications; Z87.19 Personal history of other diseases of the digestive system; Z79.899 Other long term (current) drug therapy; Z88.6 Allergy status to analgesic agent; Z88.5 Allergy status to narcotic agent; Z88.8 Allergy status to other drugs, medicaments and biological substances
CPT/HCPCS: 80053; 83690; 85025; 96361; 96374; 96375; 99284; C9113; J2405; J7030

== ENCOUNTER 2017-02-21 03:34 | Emergency (ER) | payer OTHER ==
[~2017-02-21] VITALS: Ht 160 cm; Wt 76.4 kg
[~2017-02-21 03:34] MED LIST changes: +NEXI40CA PO; +PROC10TA PO
[2017-02-21 03:47] VITALS: BP 144/79; PULSE 106; RESP 22; TEMP 98.1; O2SAT 97
[2017-02-21 04:10] VITALS: BP 155/78; PULSE 98; RESP 18; O2SAT 97
[2017-02-21 05:07] LABS: AUTOMATED NEUTROPHIL # 7.5 TH/MM3 (1.8-7.7); BASOPHIL # 0.1 TH/MM3 (0-0.2); BASOPHIL % 0.5 % (0.0-2.0); EOSINOPHIL # 0.2 TH/MM3 (0-0.4); EOSINOPHIL % 2.2 % (0.0-4.0); HEMATOCRIT 44.8 % (35.0-46.0); LYMPH % 19.7 % (9.0-44.0); MEAN CELL VOLUME 89.7 FL (80.0-100.0); MEAN CORPUSCULAR HEMOGLOBIN 30.1 PG (27.0-34.0); MEAN CORPUSCULAR HGB CONC 33.6 % (32.0-36.0); MEAN PLATELET VOLUME 8.6 FL (7.0-11.0); MONO % 4.9 % (0.0-8.0); MONOCYTE # 0.5 TH/MM3 (0-0.9); NEUT % 72.7 % (16.0-70.0); PLATELET COUNT 258 TH/MM3 (150-450); RED BLOOD COUNT 4.99 MIL/MM3 (4.00-5.30); RED CELL DISTRIBUTION WIDTH 12.9 % (11.6-17.2); WHITE BLOOD COUNT 10.3 TH/MM3 (4.0-11.0)
[2017-02-21 05:08] LABS: BILIRUBIN, URINE NEG (NEG); BLOOD, URINE NEG (NEG); GLUCOSE,URINE 250 mg/dL (NEG); KETONE, URINE NEG (NEG); NITRITE,URINE NEG (NEG); URINE LEUKOCYTE ESTERASE NEG (NEG)
[2017-02-21 05:13] LABS: CHLORIDE 104 MEQ/L (98-107); SODIUM (NA) 136 MEQ/L (136-145)
[2017-02-21 05:14] LABS: URINE COLOR YELLOW (YELLW/STRAW)
[2017-02-21 05:16] LABS: BACTERIA, URINE OCC /hpf; CALCIUM 8.9 MG/DL (8.5-10.1); MUCUS URINE OCC /lpf (OCC); RBC, URINE 0-3 /hpf (0-3)
[2017-02-21 05:17] LABS: ALBUMIN 3.8 GM/DL (3.4-5.0); BICARBONATE 22.9 MEQ/L (21.0-32.0); BLOOD UREA NITROGEN 14 MG/DL (7-18); GLUCOSE,RANDOM 246 MG/DL (74-106); LIPASE 199 U/L (73-393)
[2017-02-21 05:20] LABS: ALT (GPT) 22 U/L (10-53); AST (GOT) 16 U/L (15-37); CREATININE 0.99 MG/DL (0.50-1.00); GLOMERULAR FILTRATION RATE 59 ML/MIN (>89)
[2017-02-21 05:21] LABS: TOTAL BILIRUBIN ADULT 0.2 MG/DL (0.2-1.0)
[2017-02-21 05:22] LABS: TOTAL PROTEIN 7.5 GM/DL (6.4-8.2)
[2017-02-21 05:23] LABS: ALKALINE PHOSPHATASE 89 U/L (45-117)
--- NOTE | 2017-02-21 05:36 | PD ---
HPI Chief Complaint: Abdominal Pain Time Seen by Provider: 05:25 Travel History International Travel<30 days: No Contact w/Intl Traveler<30days: No Traveled to known affect area: No History of Present Illness HPI The patient is a 51-year-old female that complains of midline epigastric pain with nausea. She states she has not vomited yet. She did take a 4 mg Zofran by mouth at 1:00 this morning. Her doctor, Dr. Leiva older to take another Zofran of 1 did not work but she did not take the second Zofran. She comes in with nausea and epigastric pain. The patient has multiple visits for this abdominal pain and she was last seen by myself 5 days ago. She states that her daughter made her come in, [facility] Patient is extremely anxious and frustrated. She is frustrated over taking her medicines and then not working. This is been going on for months. PFSH Past Medical History Blood Disorders: No Anxiety: Yes Depression: Yes Cancer: No Cardiac Catheterization: Yes Cardiovascular Problems: Yes High Cholesterol: Yes Diabetes: Yes (HX) Patient Takes Glucophage: No Diminished Hearing: No Endocrine: Yes Gastrointestinal Disorders: Yes (DIVERTICULITIS) GERD: No Genitourinary: No Hepatitis: No Hiatal Hernia: No Hypertension: No Immune Disorder: No Implanted Vascular Access Dvce: No Medical other: No Musculoskeletal: No Neurologic: No Psychiatric: Yes (manic depressive d/o) Reproductive: No Respiratory: No Thyroid Disease: No Tetanus Vaccination: Unknown Influenza Vaccination: Yes ?: Not Menopausal: Yes : 8 Para: 3 Miscarriage: 3 : 2 Tubal Ligation: Yes Past Surgical History Abdominal Surgery: Yes ("1 FOOT OF BOWEL REMOVED DUE TO DIVERTICULITIS") Section: Yes (x2) Cholecystectomy: Yes Gynecologic Surgery: Yes (HYSTERECTOMY, TUBAL C SECTION X 2) Hysterectomy: Yes (partial) Other Surgery: Yes (DIVERTICULI REPAIR EXPLORATORY SX, LEFT BREAST LUMP REMOVED ) Social History Alcohol Use: No Tobacco Use: No Substance Use: Yes (MARIJUANA EVERY DAY) Allergies-Medications (Allergen,Severity, Reaction): Coded Allergies: acetaminophen (Verified Allergy, Severe, Itching, 02/21/17) hydrocodone (Verified Allergy, Severe, ITCHING, 02/21/17) AND FAMILY OF CETS oxycodone (Verified Allergy, Severe, Itching, 02/21/17) propoxyphene (Verified Allergy, Severe, Itching, 02/21/17) Reported Meds & Prescriptions Reported Meds & Active Scripts Active Prochlorperazine Maleate 10 Mg Tab 10 Mg PO Q6H PRN Nexium (Esomeprazole DR) 40 Mg Capdr 40 Mg PO DAILY Reglan (Metoclopramide HCl) 10 Mg Tab 10 Mg PO QID Atorvastatin (Atorvastatin Calcium) 40 Mg Tab 40 Mg PO HS Reported Zofran (Ondansetron HCl) 4 Mg Tab 4 Mg PO Q6HR PRN Phenergan (Promethazine HCl) 25 Mg Tablet 25 Mg PO Q6H PRN Carafate (Sucralfate) 1 Gram Tab 1 Gm PO QID On empty stomach Review of Systems Except as stated in HPI: all other systems reviewed are Neg Physical Exam Narrative GENERAL: The patient is alert, oriented 3, extremely anxious and moderate apparent distress with her midline epigastric discomfort and discomfort slightly to the right of midline in the upper quadrant. Her initial vital signs show pulse 106 with blood pressure 140/99 but otherwise normal. Repeat pulse is 98 and repeat blood pressure 155/78. The rest the vital signs are normal. SKIN: Focused skin assessment warm/dry. HEAD: Atraumatic. Normocephalic. EYES: Pupils equal and round. No scleral icterus. No injection or drainage. ENT: No nasal bleeding or discharge. Mucous membranes pink and moist. NECK: Trachea midline. No JVD. CARDIOVASCULAR: Regular rate and rhythm. No murmur appreciated. RESPIRATORY: No accessory muscle use. Clear to auscultation. Breath sounds equal bilaterally. GASTROINTESTINAL: Abdomen soft, with tenderness to direct palpation over the midline epigastrium and slightly to the right of midline epigastrium, nondistended. Hepatic and splenic margins not palpable. No guarding or rebound is present. MUSCULOSKELETAL: No obvious deformities. No clubbing. No cyanosis. No edema. NEUROLOGICAL: Awake and alert. No obvious cranial nerve deficits. Motor grossly within normal limits. Normal speech. PSYCHIATRIC: Appropriate mood and affect; insight and judgment normal. Data Data Last Documented VS Vital Signs Date Time Temp Pulse Resp B/P (MAP) Pulse Ox O2 Delivery O2 Flow Rate FiO2 02/21/17 04:10 98 18 155/78 (103) 97 Room Air 02/21/17 03:47 98.1 Orders Orders Complete Blood Count With Diff (02/21/17 04:49) Comprehensive Metabolic Panel (02/21/17 04:49) Urinalysis - C+S If Indicated (02/21/17 04:49) Lipase (02/21/17 04:49) Sodium Chlor 0.9% 1000 Ml Inj (Ns 1000 M (02/21/17 05:45) Ondansetron Inj (Zofran Inj) (02/21/17 05:45) Pantoprazole Inj (Protonix Inj) (02/21/17 05:45) Sodium Chlor 0.9% 1000 Ml Inj (Ns 1000 M (02/21/17 05:37) Famotidine Inj (Pepcid Inj) (02/21/17 05:45) Al-Mag Hy-Si 40-40-4 Mg/Ml Liq (Mag-Al P (02/21/17 05:45) Lidocaine 2% Viscous (Xylocaine 2% Visco (02/21/17 05:45) Ed Discharge Order (02/21/17 06:17) Labs Laboratory Tests Test 02/21/17 04:50 White Blood Count 10.3 TH/MM3 Red Blood Count 4.99 MIL/MM3 Hemoglobin 15.0 GM/DL Hematocrit 44.8 % Mean Corpuscular Volume 89.7 FL Mean Corpuscular Hemoglobin 30.1 PG Mean Corpuscular Hemoglobin Concent 33.6 % Red Cell Distribution Width 12.9 % Platelet Count 258 TH/MM3 Mean Platelet Volume 8.6 FL Neutrophils (%) (Auto) 72.7 % Lymphocytes (%) (Auto) 19.7 % Monocytes (%) (Auto) 4.9 % Eosinophils (%) (Auto) 2.2 % Basophils (%) (Auto) 0.5 % Neutrophils # (Auto) 7.5 TH/MM3 Lymphocytes # (Auto) 2.0 TH/MM3 Monocytes # (Auto) 0.5 TH/MM3 Eosinophils # (Auto) 0.2 TH/MM3 Basophils # (Auto) 0.1 TH/MM3 CBC Comment DIFF FINAL Differential Comment Urine Color YELLOW Urine Turbidity SLIGHT Urine pH 6.0 Urine Specific [place] 1.017 Urine Protein NEG mg/dL Urine Glucose (UA) 250 mg/dL Urine Ketones NEG mg/dL Urine Occult Blood NEG Urine Nitrite NEG Urine Bilirubin NEG Urine Leukocyte Esterase NEG Urine RBC 0-3 /hpf Urine Squamous Epithelial Cells 6-8 /hpf Urine Bacteria OCC /hpf Urine Mucus OCC /lpf Microscopic Urinalysis Comment CULT NOT INDICATED Blood Urea Nitrogen 14 MG/DL Creatinine 0.99 MG/DL Random Glucose 246 MG/DL Total Protein 7.5 GM/DL Albumin 3.8 GM/DL Calcium Level 8.9 MG/DL Alkaline Phosphatase 89 U/L Aspartate Amino Transf (AST/SGOT) 16 U/L Alanine Aminotransferase (ALT/SGPT) 22 U/L Total Bilirubin 0.2 MG/DL Sodium Level 136 MEQ/L Potassium Level 3.9 MEQ/L Chloride Level 104 MEQ/L Carbon Dioxide Level 22.9 MEQ/L Anion Gap 9 MEQ/L Estimat Glomerular Filtration Rate 59 ML/MIN Lipase 199 U/L [facility] Medical Decision Making Medical Screen Exam Complete: Yes Emergency Medical Condition: Yes Medical Record Reviewed: Yes Differential Diagnosis Recurrent nausea and vomiting, anxiety, gastroparesis, dehydration, electrolyte disorder, ulcer pain, pancreatitis Narrative Course The patient has nausea and vomiting but is also very anxious. It may be that controlling anxiety may help the nausea and vomiting. She is extremely frustrated at this point. She will be given a prescription for Xanax 1 mg to take 3 times a day #10. She needs to follow-up with Dr. Leiva as soon as possible. Diagnosis Primary Impression: Vomiting Additional Impression: Anxiety Additional Instructions: As we discussed, follow-up with Dr. Leiva as soon as possible. The Xanax is 1 mg taken 3 times a day as needed. This may help your nausea as well as anxiety. Do not drink alcohol or drive on this medication. Med/Other Pt SpecificInfo: Prescription(s) given Scripts Alprazolam (Xanax) 1 Mg Tab 1 MG PO Q8H Y for ANXIETY, #10 TAB 0 Refills Prov: Neftali Chavarria MD 02/21/17 Disposition: DISCHARGE HOME Condition: Stable Neftali Chavarria MD Feb 21, 2017 05:36
[2017-02-21] MEDS ORDERED: SODIUM CHLOR 0.9% 1000 ML INJ 1,000 ML IV SCH ×2 (05:37→05:45)
[2017-02-21] MEDS ORDERED: ALUMINUM/MAGNESIUM/SIMETH 30 ML CUP PO ONE (05:45)
[2017-02-21] MEDS ORDERED: LIDOCAINE VISCOUS 2% SOLN 15 ML UDC PO ONE (05:45)
[2017-02-21] MEDS ORDERED: FAMOTIDINE 20 MG/2 ML VIAL IV PUSH ONE (05:45)
[2017-02-21] MEDS ORDERED: PANTOPRAZOLE SODIUM 40 MG VIAL IVP ONE (05:45)
[2017-02-21] MEDS ORDERED: ONDANSETRON HCL 4 MG/2 ML VIAL IV ONE (05:45)
[2017-02-21] MEDS ORDERED: XANA1TAB2 PO (06:21)
[2017-02-21 07:01] VITALS: BP 151/89
== END 2017-02-21 07:06 | disposition home or self-care (01) ==
LOC: PHED 03:34
DX: R11.2 Nausea with vomiting, unspecified (principal); F41.9 Anxiety disorder, unspecified; R10.13 Epigastric pain; E78.00 Pure hypercholesterolemia, unspecified; E11.9 Type 2 diabetes mellitus without complications; K57.92 Diverticulitis of intestine, part unspecified, without perforation or abscess without bleeding; Z86.59 Personal history of other mental and behavioral disorders
CPT/HCPCS: 80053; 81001; 83690; 85025; 96374; 96375; 99284; C9113; J2405; J7030

== ENCOUNTER 2017-02-24 08:30 | Emergency (ER) | payer OTHER ==
[~2017-02-24] VITALS: Ht 160 cm; Wt 75.3 kg
[~2017-02-24 08:30] MED LIST changes: +XANA1TAB2 PO
[2017-02-24 08:31] VITALS: BP 207/90; PULSE 94; RESP 18; TEMP 98.1; O2SAT 96
[2017-02-24] MEDS ORDERED: SODIUM CHLOR 0.9% 1000 ML INJ 1,000 ML IV SCH ×2 (08:54)
[2017-02-24] MEDS ORDERED: SODIUM CHLORIDE 0.9% FLUSH 10 ML FLUSH IV FLUSH PRN (09:00)
[2017-02-24] MEDS ORDERED: ONDANSETRON HCL 4 MG/2 ML VIAL IVP ONE (09:00)
[2017-02-24] MEDS ORDERED: HYDROmorphone HCL PF 2 MG/ML VIAL IVS ONE (09:00)
--- NOTE | 2017-02-24 09:01 | PD ---
HPI Chief Complaint: Abdominal Pain Time Seen by Provider: 08:38 Travel History International Travel<30 days: No Contact w/Intl Traveler<30days: No Traveled to known affect area: No History of Present Illness HPI This 51-year-old female is complaining of abdominal pain and vomiting. She woke up that 1:00 this morning with lower abdominal pain which is fairly persistent. She took Advil without much response. She has had diverticulitis in the past in fact she has had surgery for diverticulitis and had removal of a foot of bowel. She has had a cholecystectomy in the past. She has vomited 4 times. The pain she is having is been fairly constant. She has had persistent vomiting. She does have recurrent bouts of vomiting but she says that this episode seems different in that the pain is quite prominent. With her vomiting episodes she usually gets some epigastric pain but this pain is lower. She has been seeing Dr. Arias on a regular basis. She is had recurrent bouts of vomiting for years. She has had upper and lower endoscopy. She has not been told why she has these episodes PFSH Past Medical History Blood Disorders: No Anxiety: Yes Depression: Yes Cancer: No Cardiac Catheterization: Yes Cardiovascular Problems: Yes High Cholesterol: Yes Diabetes: Yes Patient Takes Glucophage: No Diminished Hearing: No Endocrine: Yes Gastrointestinal Disorders: Yes (DIVERTICULITIS) GERD: No Genitourinary: No Hepatitis: No Hiatal Hernia: No Hypertension: No Immune Disorder: No Implanted Vascular Access Dvce: No Musculoskeletal: No Neurologic: No Psychiatric: Yes (manic depressive d/o) Reproductive: No Respiratory: No Thyroid Disease: No Influenza Vaccination: No ?: Not Menopausal: Yes : 8 Para: 3 Miscarriage: 3 : 2 Tubal Ligation: Yes Past Surgical History Abdominal Surgery: Yes ("1 FOOT OF BOWEL REMOVED DUE TO DIVERTICULITIS") Section: Yes (x2) Cholecystectomy: Yes Gynecologic Surgery: Yes (HYSTERECTOMY, TUBAL C SECTION X 2) Hysterectomy: Yes (PARTIAL) Other Surgery: Yes (DIVERTICULI REPAIR EXPLORATORY SX, LEFT BREAST LUMP REMOVED ) Social History Alcohol Use: No Tobacco Use: No Substance Use: Yes (MARIJUANA EVERY DAY) Allergies-Medications (Allergen,Severity, Reaction): Coded Allergies: acetaminophen (Verified Allergy, Severe, Itching, 02/24/17) hydrocodone (Verified Allergy, Severe, ITCHING, 02/24/17) AND FAMILY OF CETS oxycodone (Verified Allergy, Severe, Itching, 02/24/17) propoxyphene (Verified Allergy, Severe, Itching, 02/24/17) Reported Meds & Prescriptions Reported Meds & Active Scripts Active Reported Phenergan (Promethazine HCl) 25 Mg Tablet 25 Mg PO Q6H PRN Review of Systems General / Constitutional: No: Fever, Chills Eyes: No: Diploplia, Blurred Vision HENT: No: Headaches, Vertigo Cardiovascular: No: Chest Pain or Discomfort, Palpitations Respiratory: No: Cough, Shortness of Breath Gastrointestinal: Positive: Nausea, Vomiting, Abdominal Pain Genitourinary: No: Frequency Musculoskeletal: No: Myalgias Skin: No Rash Neurologic: No: Weakness Psychiatric: Positive: Anxiety Hematologic/Lymphatic: No: Easy Bruising Physical Exam Narrative GENERAL: Well-developed female SKIN: Focused skin assessment warm/dry. HEAD: Atraumatic. Normocephalic. EYES: Pupils equal and round. No scleral icterus. No injection or drainage. ENT: No nasal bleeding or discharge. Mucous membranes pink and moist. NECK: Trachea midline. No JVD. CARDIOVASCULAR: Regular rate and rhythm. No murmur appreciated. RESPIRATORY: No accessory muscle use. Clear to auscultation. Breath sounds equal bilaterally. GASTROINTESTINAL: Abdomen soft, there is some lower abdominal tenderness without guarding, nondistended. Hepatic and splenic margins not palpable. MUSCULOSKELETAL: No obvious deformities. No clubbing. No cyanosis. No edema. NEUROLOGICAL: Awake and alert. No obvious cranial nerve deficits. Motor grossly within normal limits. Normal speech. PSYCHIATRIC: Appropriate mood and affect; insight and judgment normal. Data Data Last Documented VS Vital Signs Date Time Temp Pulse Resp B/P (MAP) Pulse Ox O2 Delivery O2 Flow Rate FiO2 02/24/17 11:10 76 16 173/84 (113) 100 Room Air 02/24/17 08:31 98.1 Orders Orders Complete Blood Count With Diff (02/24/17 08:54) Comprehensive Metabolic Panel (02/24/17 08:54) Lipase (02/24/17 08:54) Prothrombin Time / Inr (Pt) (02/24/17 08:54) Act Partial Throm Time (Ptt) (02/24/17 08:54) Urinalysis - C+S If Indicated (02/24/17 08:54) Ct Abd/Pel W Iv Contrast(Rout) (02/24/17 08:54) Iv Access Insert/Monitor (02/24/17 08:54) Hydromorphone Pf Inj (Dilaudid Pf Inj) (02/24/17 09:00) Ondansetron Inj (Zofran Inj) (02/24/17 09:00) Sodium Chlor 0.9% 1000 Ml Inj (Ns 1000 M (02/24/17 08:54) Sodium Chlor 0.9% 1000 Ml Inj (Ns 1000 M (02/24/17 08:54) Sodium Chloride 0.9% Flush (Ns Flush) (02/24/17 09:00) Iohexol 350 Inj (Omnipaque 350 Inj) (02/24/17 10:39) Hydromorphone Pf Inj (Dilaudid Pf Inj) (02/24/17 11:00) Labs Laboratory Tests Test 02/24/17 09:00 02/24/17 09:14 Urine Collection Type CLEAN CATCH Urine Color YELLOW Urine Turbidity CLEAR Urine pH 8.0 Urine Specific [place] 1.029 Urine Protein TRACE mg/dL Urine Glucose (UA) NEG mg/dL Urine Ketones TRACE mg/dL Urine Occult Blood NEG Urine Nitrite NEG Urine Bilirubin NEG Urine Leukocyte Esterase NEG Urine WBC 0-2 /hpf Urine Squamous Epithelial Cells 0-5 /hpf Urine Mucus MOD /lpf Microscopic Urinalysis Comment CULT NOT INDICATED White Blood Count 8.6 TH/MM3 Red Blood Count 4.99 MIL/MM3 Hemoglobin 15.0 GM/DL Hematocrit 44.7 % Mean Corpuscular Volume 89.6 FL Mean Corpuscular Hemoglobin 30.0 PG Mean Corpuscular Hemoglobin Concent 33.5 % Red Cell Distribution Width 13.0 % Platelet Count 244 TH/MM3 Mean Platelet Volume 8.5 FL Neutrophils (%) (Auto) 74.7 % Lymphocytes (%) (Auto) 20.7 % Monocytes (%) (Auto) 3.4 % Eosinophils (%) (Auto) 1.0 % Basophils (%) (Auto) 0.2 % Neutrophils # (Auto) 6.4 TH/MM3 Lymphocytes # (Auto) 1.8 TH/MM3 Monocytes # (Auto) 0.3 TH/MM3 Eosinophils # (Auto) 0.1 TH/MM3 Basophils # (Auto) 0.0 TH/MM3 CBC Comment DIFF FINAL Differential Comment Prothrombin Time 10.0 SEC Prothromb Time International Ratio 1.0 RATIO Activated Partial Thromboplast Time 25.4 SEC Blood Urea Nitrogen 12 MG/DL Creatinine 0.80 MG/DL Random Glucose 155 MG/DL Total Protein 7.5 GM/DL Albumin 4.0 GM/DL Calcium Level 9.4 MG/DL Alkaline Phosphatase 80 U/L Aspartate Amino Transf (AST/SGOT) 14 U/L Alanine Aminotransferase (ALT/SGPT) 18 U/L Total Bilirubin 0.4 MG/DL Sodium Level 142 MEQ/L Potassium Level 4.0 MEQ/L Chloride Level 107 MEQ/L Carbon Dioxide Level 22.5 MEQ/L Anion Gap 13 MEQ/L Estimat Glomerular Filtration Rate 76 ML/MIN Lipase 164 U/L [facility] Medical Decision Making Medical Screen Exam Complete: Yes Emergency Medical Condition: Yes Medical Record Reviewed: Yes Differential Diagnosis Differential includes gastroparesis, diverticulitis, appendicitis Narrative Course White count is normal at 8000. A CT scan was obtained. There is no evidence of diverticulitis. Colonic diverticuli are noted. There are uterine fibroids. There is a new cyst on the right ovary measures 2.6 cm in size. Patient has been taking Advil for pain and we'll recommend that she take Ultram instead as the Advil may be irritating her stomach. It appears she may have some gastroparesis Diagnosis Primary Impression: Abdominal pain Scripts Tramadol (Tramadol) 50 Mg Tab 50 MG PO Q4H Y for PAIN, #20 TAB 0 Refills Prov: Festus Jacome MD 02/24/17 Disposition: 01 DISCHARGE HOME Condition: Stable Festus Jacome MD Feb 24, 2017 09:01
[2017-02-24 09:20] LABS: AUTOMATED NEUTROPHIL # 6.4 TH/MM3 (1.8-7.7); BASOPHIL % 0.2 % (0.0-2.0); EOSINOPHIL # 0.1 TH/MM3 (0-0.4); HEMATOCRIT 44.7 % (35.0-46.0); LYMPH % 20.7 % (9.0-44.0); LYMPHOCYTE # 1.8 TH/MM3 (1.0-4.8); MEAN CELL VOLUME 89.6 FL (80.0-100.0); MEAN CORPUSCULAR HGB CONC 33.5 % (32.0-36.0); MEAN PLATELET VOLUME 8.5 FL (7.0-11.0); MONO % 3.4 % (0.0-8.0); MONOCYTE # 0.3 TH/MM3 (0-0.9); NEUT % 74.7 % (16.0-70.0); PLATELET COUNT 244 TH/MM3 (150-450); RED BLOOD COUNT 4.99 MIL/MM3 (4.00-5.30); WHITE BLOOD COUNT 8.6 TH/MM3 (4.0-11.0)
[2017-02-24 09:22] LABS: BILIRUBIN, URINE NEG (NEG); BLOOD, URINE NEG (NEG); GLUCOSE,URINE NEG (NEG); KETONE, URINE TRACE mg/dL (NEG); NITRITE,URINE NEG (NEG); URINE LEUKOCYTE ESTERASE NEG (NEG)
[2017-02-24 09:25] VITALS: BP 194/84; PULSE 94; RESP 20; O2SAT 98
[2017-02-24 09:25] LABS: URINE COLOR YELLOW (YELLW/STRAW)
[2017-02-24 09:27] LABS: MUCUS URINE MOD /lpf (OCC); SQUAMOUS EPITHELIAL CELL URINE 0-5 /hpf (0-5); WBC, URINE 0-2 /hpf (0-5)
[2017-02-24 10:12] LABS: CALCIUM 9.4 MG/DL (8.5-10.1)
[2017-02-24 10:14] LABS: LIPASE 164 U/L (73-393)
[2017-02-24 10:17] LABS: BICARBONATE 22.5 MEQ/L (21.0-32.0); GLUCOSE,RANDOM 155 MG/DL (74-106); TOTAL PROTEIN 7.5 GM/DL (6.4-8.2)
[2017-02-24 10:20] LABS: AST (GOT) 14 U/L (15-37); GLOMERULAR FILTRATION RATE 76 ML/MIN (>89)
[2017-02-24 10:21] LABS: ALT (GPT) 18 U/L (10-53); BLOOD UREA NITROGEN 12 MG/DL (7-18)
[2017-02-24 10:22] LABS: ALKALINE PHOSPHATASE 80 U/L (45-117)
[2017-02-24 10:29] LABS: TOTAL BILIRUBIN ADULT 0.4 MG/DL (0.2-1.0)
[2017-02-24] MEDS ORDERED: IOHEXOL 350 MG/ML 10 ML VIAL (for RAD DIAG) IVCONTRAST ONE (10:39)
[2017-02-24] MEDS ORDERED: HYDROmorphone HCL PF 2 MG/ML VIAL IV PUSH ONE (11:00)
[2017-02-24 11:10] VITALS: BP 173/84; PULSE 76; RESP 16; O2SAT 100
--- NOTE | 2017-02-24 11:13 | RADRPT ---
EXAM DATE/TIME: 02/24/2017 10:28 [facility] COMPARISON: CT ABDOMEN & PELVIS W CONTRAST, November 20, 2015, 6:06. INDICATIONS : Midline and right lower abdominal pain and vomiting. IV CONTRAST: 85 cc Omnipaque 350 (iohexol) IV ORAL CONTRAST: Partial prescribed oral contrast ingested. RADIATION DOSE: 10.67 CTDIvol (mGy) MEDICAL HISTORY : Irritiable bowel syndrome. Diverticulitis. Cardiovascular diseaseDiabetes. SURGICAL HISTORY : Colon resection. Tubal ligation. section.Hysterectomy. Cholecystectomy. ENCOUNTER: Initial ACUITY: 1 day PAIN SCALE: 4/10 LOCATION: Right lower quadrant TECHNIQUE: Volumetric scanning of the abdomen and pelvis was performed. Using automated exposure control and ad justment of the mA and/or kV according to patient size, radiation dose was kept as low as reasonably achievable to obtain optimal diagnostic quality images. DICOM format image data is available electro nically for review and comparison. FINDINGS: CT Abdomen: The liver, pancreas, kidneys, adrenals are unremarkable. The spleen is enlarged measuring 12.3 cm in craniocaudal dimension without focal lesions for technique. There is no evidence for any appreciable pathological adenopathy, free fluid, or bowel obstruction. There is evidence for prior c holecystectomy. Chronic vascular calcifications are present involving the aorta, iliac arteries witho ut any significant stenosis or aneurysmal dilatations for technique. There are shotty retroperitoneal lymph nodes subcentimeter in size benign in appearance. CT pelvis: There is an approximate 2.6 cm cyst in the right ovary with 2 cm fibroid within the uterus and there may be additional fibroids within the uterus as well. Approximate 3.6 cm cyst is also seen in the left ovary and is smaller since 2016 at which time it measured 4.7 cm in size. There are scat tered diverticuli mainly in the sigmoid colon without definite signs of diverticulitis. CONCLUSION: 1. Previously seen left ovarian cyst on the study from 2016 appears smaller and measures 3.6 cm in si ze at this time. This is most likely benign. 2. There is a new cyst in the right ovary not present previously also probably benign measures 2.6 cm and could be followed with pelvic ultrasound in 6 months. 3. Colonic diverticuli, uterine fibroids and borderline splenomegaly. Carol Dangelo MD on February 24, 2017 at 11:03 Board Certified Radiologist. This report was verified electronically.
[2017-02-24 11:27] LABS: CHLORIDE 107 MEQ/L (98-107); SODIUM (NA) 142 MEQ/L (136-145)
[2017-02-24] MEDS ORDERED: TRAM50TA PO (11:34)
[2017-02-24 11:47] VITALS: BP 181/85; PULSE 78; RESP 16; O2SAT 98
== END 2017-02-24 12:07 | disposition home or self-care (01) ==
LOC: PHED 08:30
DX: R10.9 Unspecified abdominal pain (principal); D25.9 Leiomyoma of uterus, unspecified; K57.30 Diverticulosis of large intestine without perforation or abscess without bleeding; E11.9 Type 2 diabetes mellitus without complications; E78.00 Pure hypercholesterolemia, unspecified; F31.9 Bipolar disorder, unspecified; Z90.49 Acquired absence of other specified parts of digestive tract; Z88.5 Allergy status to narcotic agent; Z79.899 Other long term (current) drug therapy
CPT/HCPCS: 74177; 80053; 81001; 83690; 85025; 85610; 85730; 96361; 96374; 96375; 96376; 99285; J1170; J2405; J7030; Q9967

== ENCOUNTER 2017-03-19 05:31 | Emergency (ER) | payer OTHER ==
[~2017-03-19] VITALS: Ht 160 cm; Wt 74.0 kg
[~2017-03-19 05:31] MED LIST changes: -ATOR40TA16 PO; -CARA1TAB6 PO; -NEXI40CA PO; -PROC10TA PO; -REGL10TA5 PO; +TRAM50TA PO; -XANA1TAB2 PO; -ZOFR4TAB PO
[2017-03-19 05:38] VITALS: BP 174/108; PULSE 100; RESP 20; TEMP 96.9; O2SAT 98
[2017-03-19] MEDS ORDERED: SODIUM CHLOR 0.9% 1000 ML INJ 1,000 ML IV ONE (05:56)
[2017-03-19] MEDS ORDERED: diphenhydrAMINE HCL 50 MG/ML VIAL IVP ONE (06:00)
[2017-03-19] MEDS ORDERED: METOCLOPRAMIDE HCL 10 MG/2 ML VIAL IVP ONE (06:00)
[2017-03-19] MEDS ORDERED: SODIUM CHLORIDE 0.9% FLUSH 10 ML FLUSH IVF PRN (06:00)
--- NOTE | 2017-03-19 06:00 | PD ---
HPI Chief Complaint: GI Complaint Time Seen by Provider: 05:56 Travel History International Travel<30 days: No Contact w/Intl Traveler<30days: No Traveled to known affect area: No History of Present Illness HPI 51-year-old female patient with history of chronic abdominal pains for which she is following up with GI, presents to the ER today for headache starting this morning, states is currently a 10 out of 10, nausea, vomiting. She states that she usually gets the nausea and vomiting and abdominal discomfort but usually does not get headaches. She denies any stiff neck, fevers, or other symptoms. Modifying Factors: None Associated Signs & Symptoms: Headache, nausea, vomiting, abdominal discomfort Risk Factors: History of chronic abdominal pain PFSH Past Medical History Blood Disorders: No Anxiety: Yes Depression: Yes Cancer: No Cardiac Catheterization: Yes Cardiovascular Problems: Yes High Cholesterol: Yes Diabetes: Yes Diminished Hearing: No Endocrine: Yes Gastrointestinal Disorders: Yes (DIVERTICULITIS) GERD: No Genitourinary: No Hepatitis: No Hiatal Hernia: No Hypertension: No Immune Disorder: No Implanted Vascular Access Dvce: No Musculoskeletal: No Neurologic: No Psychiatric: Yes (manic depressive d/o) Reproductive: No Respiratory: No Thyroid Disease: No Menopausal: Yes : 8 Para: 3 Miscarriage: 3 : 2 Tubal Ligation: Yes Past Surgical History Abdominal Surgery: Yes ("1 FOOT OF BOWEL REMOVED DUE TO DIVERTICULITIS") Section: Yes (x2) Cholecystectomy: Yes Gynecologic Surgery: Yes (HYSTERECTOMY, TUBAL C SECTION X 2) Hysterectomy: Yes Other Surgery: Yes (DIVERTICULI REPAIR EXPLORATORY SX, LEFT BREAST LUMP REMOVED ) Social History Alcohol Use: No Tobacco Use: No Substance Use: Yes (MARIJUANA EVERY DAY) Allergies-Medications (Allergen,Severity, Reaction): Coded Allergies: acetaminophen (Verified Allergy, Severe, Itching, 02/24/17) hydrocodone (Verified Allergy, Severe, ITCHING, 02/24/17) AND FAMILY OF CETS oxycodone (Verified Allergy, Severe, Itching, 02/24/17) propoxyphene (Verified Allergy, Severe, Itching, 02/24/17) Reported Meds & Prescriptions Reported Meds & Active Scripts Active Tramadol (Tramadol HCl) 50 Mg Tab 50 Mg PO Q4H PRN Reported Phenergan (Promethazine HCl) 25 Mg Tablet 25 Mg PO Q6H PRN Review of Systems Except as stated in HPI: all other systems reviewed are Neg Physical Exam Narrative GENERAL: Well-developed middle age white female patient currently in moderate distress. Awake and oriented 3. SKIN: Focused skin assessment warm/dry. HEAD: Atraumatic. Normocephalic. EYES: Pupils equal and round. No scleral icterus. No injection or drainage. ENT: No nasal bleeding or discharge. Mucous membranes pink and moist. NECK: Trachea midline. No JVD. Supple. CARDIOVASCULAR: Regular rate and rhythm. No murmur appreciated. RESPIRATORY: No accessory muscle use. Clear to auscultation. Breath sounds equal bilaterally. GASTROINTESTINAL: Abdomen soft, non-tender, nondistended. Hepatic and splenic margins not palpable. MUSCULOSKELETAL: No obvious deformities. No clubbing. No cyanosis. No edema. NEUROLOGICAL: Awake and alert. No obvious cranial nerve deficits. Motor grossly within normal limits. Normal speech. PSYCHIATRIC: Appropriate mood and affect; insight and judgment normal. Data Data Last Documented VS Vital Signs Date Time Temp Pulse Resp B/P (MAP) Pulse Ox O2 Delivery O2 Flow Rate FiO2 03/19/17 06:31 99 03/19/17 05:38 96.9 100 20 Orders Orders Complete Blood Count With Diff (03/19/17 05:56) Comprehensive Metabolic Panel (03/19/17 05:56) Ct Brain W/O Iv Contrast(Rout) (03/19/17 05:56) Ecg Monitoring (03/19/17 05:56) Iv Access Insert/Monitor (03/19/17 05:56) Oximetry (03/19/17 05:56) Sodium Chloride 0.9% Flush (Ns Flush) (03/19/17 06:00) Diphenhydramine Inj (Benadryl Inj) (03/19/17 06:00) Metoclopramide Inj (Reglan Inj) (03/19/17 06:00) Sodium Chlor 0.9% 1000 Ml Inj (Ns 1000 M (03/19/17 05:56) Lipase (03/19/17 05:56) Urinalysis - C+S If Indicated (03/19/17 05:56) Labs Laboratory Tests Test 03/19/17 06:29 White Blood Count 12.8 TH/MM3 Red Blood Count 5.24 MIL/MM3 Hemoglobin 16.1 GM/DL Hematocrit 47.3 % Mean Corpuscular Volume 90.3 FL Mean Corpuscular Hemoglobin 30.7 PG Mean Corpuscular Hemoglobin Concent 34.0 % Red Cell Distribution Width 13.2 % Platelet Count 296 TH/MM3 Mean Platelet Volume 9.2 FL CBC Comment AUTO DIFF MDM Medical Decision Making Medical Screen Exam Complete: Yes Emergency Medical Condition: Yes Medical Record Reviewed: Yes Differential Diagnosis Nausea, vomiting, abdominal discomfort, headache: Acute on chronic abdominal pains versus gastroenteritis versus dehydration versus metabolic issues versus migraine headaches versus acute intracranial processes Narrative Course Patient was given IV fluids, Reglan, Benadryl in the ER. Lab work and CAT scan was ordered for further evaluation. Physician Communication Physician Communication Case is signed out to Dr. Baires at 7 AM pending workup. Disposition based on workup. Diagnosis Primary Impression: Headache Additional Impression: Vomiting Condition: Stable Enmanuel Sam MD Mar 19, 2017 06:00
[2017-03-19 06:31] VITALS: O2SAT 99
[2017-03-19 06:42] LABS: HEMATOCRIT 47.3 % (35.0-46.0); HEMOGLOBIN 16.1 GM/DL (11.6-15.3); MEAN CELL VOLUME 90.3 FL (80.0-100.0); MEAN CORPUSCULAR HEMOGLOBIN 30.7 PG (27.0-34.0); MEAN PLATELET VOLUME 9.2 FL (7.0-11.0); PLATELET COUNT 296 TH/MM3 (150-450); RED BLOOD COUNT 5.24 MIL/MM3 (4.00-5.30); RED CELL DISTRIBUTION WIDTH 13.2 % (11.6-17.2); WHITE BLOOD COUNT 12.8 TH/MM3 (4.0-11.0)
--- NOTE | 2017-03-19 06:56 | RADRPT ---
EXAM DATE/TIME: 03/19/2017 06:42 [facility] COMPARISON: No previous studies available for comparison. INDICATIONS : Headache, nausea and vomiting for 3 hours RADIATION DOSE: 60.37 CTDIvol (mGy) MEDICAL HISTORY : Diabetes mellitus type 2. manic depression SURGICAL HISTORY : Cholecystectomy. Hysterectomy.breast lumpectomy, bowel resection ENCOUNTER: Initial ACUITY: 1 day PAIN SCALE: 7/10 LOCATION: cranial TECHNIQUE: Multiple contiguous axial images were obtained of the head. Using automated exposure control and adj ustment of the mA and/or kV according to patient size, radiation dose was kept as low as reasonably a chievable to obtain optimal diagnostic quality images. DICOM format image data is available electro nically for review and comparison. FINDINGS: CEREBRUM: The ventricles are normal for age. No evidence of midline shift, mass lesion, hemorrhage or acute in farction. No extra-axial fluid collections are seen. POSTERIOR FOSSA: The cerebellum and brainstem are intact. The 4th ventricle is midline. The cerebellopontine angle i s unremarkable. EXTRACRANIAL: The visualized portion of the orbits is intact. SKULL: The calvaria is intact. No evidence of skull fracture. CONCLUSION: No acute disease. Tera Bansal MD on March 19, 2017 at 6:53 Board Certified Radiologist. This report was verified electronically.
[2017-03-19 07:00] VITALS: BP 142/71; PULSE 86; RESP 15; TEMP 97.8; O2SAT 96
--- NOTE | 2017-03-19 07:05 | PD ---
Physical Exam Narrative Received sign out from previous team to reevaluate patient. 51yo F presents to the ED with c/o headache that started at 3am this morning. Said it was severe, associated with nausea and vomiting. Pt had CT brain completed that showed no acute disease. Given that CT was completed within 6 hours of onset of headache, feel that it is 100% sensitive for subarachnoid hemorrhage. Pt's headache also improved significantly from an 8 to a 5 after NS IVF, reglan and diphenhydramine. Will give toradol and reevaluate. Labs reviewed, mild leukocytosis with WBC of 12.8. Elevated H/H, from dehydration. CMP unremarkable. Lipase normal. UA showed neg leukocyte. Pt reevaluated at bedside and headache has resolved. Pt feels much better and wants to go home. Return precautions given. Data Data Last Documented VS Vital Signs Date Time Temp Pulse Resp B/P (MAP) Pulse Ox O2 Delivery O2 Flow Rate FiO2 03/19/17 07:00 97.8 86 15 142/71 (94) 96 Room Air Orders Orders Complete Blood Count With Diff (03/19/17 05:56) Comprehensive Metabolic Panel (03/19/17 05:56) Ct Brain W/O Iv Contrast(Rout) (03/19/17 05:56) Ecg Monitoring (03/19/17 05:56) Iv Access Insert/Monitor (03/19/17 05:56) Oximetry (03/19/17 05:56) Sodium Chloride 0.9% Flush (Ns Flush) (03/19/17 06:00) Diphenhydramine Inj (Benadryl Inj) (03/19/17 06:00) Metoclopramide Inj (Reglan Inj) (03/19/17 06:00) Sodium Chlor 0.9% 1000 Ml Inj (Ns 1000 M (03/19/17 05:56) Lipase (03/19/17 05:56) Urinalysis - C+S If Indicated (03/19/17 05:56) Ketorolac Inj (Toradol Inj) (03/19/17 07:15) Labs Laboratory Tests Test 03/19/17 06:29 03/19/17 06:58 White Blood Count 12.8 TH/MM3 Red Blood Count 5.24 MIL/MM3 Hemoglobin 16.1 GM/DL Hematocrit 47.3 % Mean Corpuscular Volume 90.3 FL Mean Corpuscular Hemoglobin 30.7 PG Mean Corpuscular Hemoglobin Concent 34.0 % Red Cell Distribution Width 13.2 % Platelet Count 296 TH/MM3 Mean Platelet Volume 9.2 FL CBC Comment AUTO DIFF Differential Total Cells Counted 100 Neutrophils % (Manual) 73 % Band Neutrophils % 1 % Lymphocytes % 22 % Monocytes % 3 % Eosinophils % 1 % Neutrophils # (Manual) 9.5 TH/MM3 Differential Comment FINAL DIFF MANUAL Platelet Estimate NORMAL Platelet Morphology Comment NORMAL Red Cell Morphology Comment NORMAL Urine Collection Type CLEAN CATCH Urine Color YELLOW Urine Turbidity CLEAR Urine pH 7.0 Urine Specific [place] 1.020 Urine Protein NEG mg/dL Urine Glucose (UA) NEG mg/dL Urine Ketones 15 mg/dL Urine Occult Blood NEG Urine Nitrite NEG Urine Bilirubin NEG Urine Leukocyte Esterase NEG Urine Squamous Epithelial Cells 6-8 /hpf Urine Amorphous Sediment MOD Microscopic Urinalysis Comment CULT NOT INDICATED Urine Collection Time 0658 Blood Urea Nitrogen 16 MG/DL Creatinine 0.92 MG/DL Random Glucose 182 MG/DL Total Protein 7.4 GM/DL Albumin 3.8 GM/DL Calcium Level 9.0 MG/DL Alkaline Phosphatase 76 U/L Aspartate Amino Transf (AST/SGOT) 22 U/L Alanine Aminotransferase (ALT/SGPT) 25 U/L Total Bilirubin 0.4 MG/DL Sodium Level 138 MEQ/L Potassium Level 3.7 MEQ/L Chloride Level 106 MEQ/L Carbon Dioxide Level 23.5 MEQ/L Anion Gap 9 MEQ/L Estimat Glomerular Filtration Rate 65 ML/MIN Lipase 153 U/L MDM Supervised Visit with OMAR: No Diagnosis Primary Impression: Headache Qualified Codes: R51 - Headache Patient Instructions: General Instructions Departure Forms: Tests/Procedures Additional Instruction: Please follow up with your primary care physician in 2-3 days. Return to the ED if symptoms worsen. Med/Other Pt SpecificInfo: Prescription(s) given Scripts Ibuprofen (Ibuprofen) 400 Mg Tab 400 MG PO Q8H Y for PAIN SCALE 1 TO 4, #20 TAB 0 Refills Prov: Kitty Baires 03/19/17 Disposition: 01 DISCHARGE HOME Condition: Stable Kitty Baires Mar 19, 2017 07:05
[2017-03-19 07:12] LABS: BILIRUBIN, URINE NEG (NEG); BLOOD, URINE NEG (NEG); GLUCOSE,URINE NEG (NEG); KETONE, URINE 15 mg/dL (NEG); NITRITE,URINE NEG (NEG); URINE LEUKOCYTE ESTERASE NEG (NEG)
[2017-03-19] MEDS ORDERED: KETOROLAC TROMETHAMINE 30 MG/ML (IVP) VIAL IV PUSH ONE (07:15)
[2017-03-19 07:17] LABS: CHLORIDE 106 MEQ/L (98-107); SODIUM (NA) 138 MEQ/L (136-145)
[2017-03-19 07:21] LABS: BANDS 1 % (0-6); LYMPHOCYTES 22 % (9-44); MONOCYTES 3 % (0-8); NEUTROPHIL # MANUAL DIFF 9.5 TH/MM3 (1.8-7.7); POLYS (SEG NEUTROPHILS) 73 % (16-70)
[2017-03-19 07:21] LABS: ALBUMIN 3.8 GM/DL (3.4-5.0); BICARBONATE 23.5 MEQ/L (21.0-32.0); GLUCOSE,RANDOM 182 MG/DL (74-106); LIPASE 153 U/L (73-393)
[2017-03-19 07:22] LABS: BLOOD UREA NITROGEN 16 MG/DL (7-18)
[2017-03-19 07:23] LABS: URINE COLOR YELLOW (YELLW/STRAW)
[2017-03-19 07:24] LABS: ALT (GPT) 25 U/L (10-53); AMORPHOUS SEDIMENT, URINE MOD; AST (GOT) 22 U/L (15-37); CREATININE 0.92 MG/DL (0.50-1.00); GLOMERULAR FILTRATION RATE 65 ML/MIN (>89)
[2017-03-19 07:26] LABS: TOTAL BILIRUBIN ADULT 0.4 MG/DL (0.2-1.0); TOTAL PROTEIN 7.4 GM/DL (6.4-8.2)
[2017-03-19 07:27] LABS: ALKALINE PHOSPHATASE 76 U/L (45-117)
[2017-03-19] MEDS ORDERED: IBUP1TAB5 PO (08:01)
[2017-03-19 08:10] VITALS: BP 140/76; PULSE 80; RESP 17; O2SAT 97
== END 2017-03-19 08:22 | disposition home or self-care (01) ==
LOC: PHED 05:31
DX: R51 Headache (principal); R11.2 Nausea with vomiting, unspecified; G89.29 Other chronic pain; R10.9 Unspecified abdominal pain; E11.9 Type 2 diabetes mellitus without complications
CPT/HCPCS: 70450; 80053; 81001; 83690; 85007; 85027; 96361; 96374; 96375; 99285; J1200; J1885; J2765; J7030

== ENCOUNTER 2017-04-04 03:50 | Emergency (ER) | payer OTHER ==
[~2017-04-04] VITALS: Ht 160 cm; Wt 74.0 kg
[~2017-04-04 03:50] MED LIST changes: +IBUP1TAB5 PO
[2017-04-04 03:51] VITALS: BP 193/86; PULSE 104; RESP 18; TEMP 97.1; O2SAT 97
[2017-04-04] MEDS ORDERED: XANA1TAB2 PO (04:09)
[2017-04-04] MEDS ORDERED: ESOM1CAP6 PO (04:10)
[2017-04-04] MEDS ORDERED: SODIUM CHLOR 0.9% 1000 ML INJ 1,000 ML IV SCH (04:14)
[2017-04-04] MEDS ORDERED: SODIUM CHLORIDE 0.9% FLUSH 10 ML FLUSH IV FLUSH PRN (04:15)
[2017-04-04] MEDS ORDERED: ONDANSETRON HCL 4 MG/2 ML VIAL IVP ONE (04:15)
[2017-04-04 04:53] LABS: AUTOMATED NEUTROPHIL # 4.6 TH/MM3 (1.8-7.7); BASOPHIL # 0.1 TH/MM3 (0-0.2); BASOPHIL % 1.1 % (0.0-2.0); EOSINOPHIL # 0.3 TH/MM3 (0-0.4); EOSINOPHIL % 3.3 % (0.0-4.0); HEMATOCRIT 44.4 % (35.0-46.0); HEMOGLOBIN 14.8 GM/DL (11.6-15.3); LYMPH % 29.1 % (9.0-44.0); LYMPHOCYTE # 2.2 TH/MM3 (1.0-4.8); MEAN CELL VOLUME 89.6 FL (80.0-100.0); MEAN CORPUSCULAR HEMOGLOBIN 29.8 PG (27.0-34.0); MEAN CORPUSCULAR HGB CONC 33.3 % (32.0-36.0); MEAN PLATELET VOLUME 9.1 FL (7.0-11.0); MONO % 5.9 % (0.0-8.0); MONOCYTE # 0.5 TH/MM3 (0-0.9); NEUT % 60.6 % (16.0-70.0); PLATELET COUNT 256 TH/MM3 (150-450); RED BLOOD COUNT 4.96 MIL/MM3 (4.00-5.30); RED CELL DISTRIBUTION WIDTH 12.6 % (11.6-17.2); WHITE BLOOD COUNT 7.7 TH/MM3 (4.0-11.0)
--- NOTE | 2017-04-04 04:59 | RADRPT ---
EXAM DATE/TIME: 04/04/2017 04:26 [facility] COMPARISON: No previous studies available for comparison. INDICATIONS : Nausea, vomiting. MEDICAL HISTORY : Irritable bowel syndrome. Diverticulitis. Cardiovascular disease. SURGICAL HISTORY : Colon resection. Tubal ligation. section. Hysterectomy. Cholecystectomy. ENCOUNTER: Initial ACUITY: 1 day PAIN SCORE: 0/10 LOCATION: abdomen, all quadrants FINDINGS: Tubal ligation clips overlie the pelvis and cholecystectomy clips are noted in the right upper quadra nt. Supine and upright views of the abdomen were performed. The abdominal bowel gas pattern is normal. No air fluid levels are seen. No abnormal masses, calcifications, or organomegaly is seen. The visu alized lower lungs are clear. No evidence of free intraperitoneal gas. The osseous structures are u nremarkable. CONCLUSION: Nonobstructive bowel gas pattern. Aram Bustillo MD on April 04, 2017 at 4:56 Board Certified Radiologist. This report was verified electronically.
[2017-04-04] MEDS ORDERED: PANTOPRAZOLE SODIUM 40 MG VIAL IV PUSH ONE (05:00)
[2017-04-04] MEDS ORDERED: KETOROLAC TROMETHAMINE 30 MG/ML (IVP) VIAL IV PUSH ONE (05:00)
[2017-04-04 05:03] LABS: BICARBONATE 20.4 MEQ/L (21.0-32.0); CALCIUM 8.8 MG/DL (8.5-10.1)
[2017-04-04 05:07] LABS: CREATININE 0.81 MG/DL (0.50-1.00)
[2017-04-04 05:26] VITALS: PULSE 95; O2SAT 97
[2017-04-04] MEDS ORDERED: HYDROmorphone HCL PF 2 MG/ML VIAL IV PUSH ONE (05:30)
--- NOTE | 2017-04-04 05:31 | PD ---
HPI Chief Complaint: GI Complaint Time Seen by Provider: 04:14 Travel History International Travel<30 days: No Contact w/Intl Traveler<30days: No Traveled to known affect area: No History of Present Illness HPI 56-year-old female presents to the emergency department by private transportation for complaint of 3 episodes of vomiting over the past 3 hours and severe epigastric abdominal pain. Patient states she has chronic abdominal pain and she is reportedly scheduled to see her make up worker today at 4 PM. Patient states that she has had no fever no chills no hematemesis no coffee -ground emesis no melena hematochezia last bowel movement was at 2 AM and normal for her. Patient denies dysuria frequency urgency. Patient states she has had multiple endoscopies and it has not been determined why she has abdominal pain. Patient thinks she might have a diagnosis of gastroparesis. Patient denies history of inflammatory bowel disease. Patient states she has taken off her antiemetics without relief. Patient states she is in severe pain and needs pain medication. Patient states she did not take any over-the- counter medications because she has been told not to take acetaminophen or ibuprofen as it might irritate her condition. PFSH Past Medical History Narrative Medical Bipolar disorder diabetes chronic abdominal pain GERD high cholesterol tubal ligation marijuana use; nursing notes reviewed Blood Disorders: No Bipolar Disorder: Yes (MANIC) Anxiety: Yes Depression: Yes Cancer: No Cardiac Catheterization: Yes Cardiovascular Problems: Yes High Cholesterol: Yes Diabetes: Yes Patient Takes Glucophage: No Diminished Hearing: No Endocrine: Yes Gastrointestinal Disorders: Yes (DIVERTICULITIS, GASTROPERESIS) GERD: Yes Genitourinary: No Hepatitis: No Hiatal Hernia: No Hypertension: No Immune Disorder: No Implanted Vascular Access Dvce: No Musculoskeletal: No Neurologic: No Psychiatric: Yes (manic depressive d/o) Reproductive: No Respiratory: No Thyroid Disease: No Tetanus Vaccination: Unknown Influenza Vaccination: Yes ?: Not Menopausal: Yes : 8 Para: 3 Miscarriage: 3 : 2 Tubal Ligation: Yes Past Surgical History Abdominal Surgery: Yes ("1 FOOT OF BOWEL REMOVED DUE TO DIVERTICULITIS") Section: Yes (x2) Cholecystectomy: Yes Gynecologic Surgery: Yes (HYSTERECTOMY, TUBAL, C SECTION X 2) Hysterectomy: Yes Other Surgery: Yes (DIVERTICULI REPAIR EXPLORATORY SX, LEFT BREAST LUMP REMOVED ) Social History Alcohol Use: No Tobacco Use: No Substance Use: Yes (MARIJUANA EVERY DAY) Allergies-Medications (Allergen,Severity, Reaction): Coded Allergies: acetaminophen (Verified Allergy, Severe, Itching, 04/04/17) hydrocodone (Verified Allergy, Severe, ITCHING, 04/04/17) AND FAMILY OF CETS oxycodone (Verified Allergy, Severe, Itching, 04/04/17) propoxyphene (Verified Allergy, Severe, Itching, 04/04/17) Reported Meds & Prescriptions Reported Meds & Active Scripts Active Reported Nexium 24 HR (Esomeprazole DR) 20 Mg Capdr 20 Mg PO HS Xanax (Alprazolam) 1 Mg Tab 1 Mg PO HS PRN Review of Systems Except as stated in HPI: all other systems reviewed are Neg Physical Exam Narrative GENERAL: Well-developed well-nourished female in no acute distress or respiratory distress but intermittent crying holding her abdomen rocking back and forth on the stretcher walking around the exam stretcher sitting down on the floor holding her abdomen talking about severe pain SKIN: Warm and dry. HEAD: Normocephalic. EYES: No scleral icterus. No injection or drainage. NECK: Supple, trachea midline. No JVD or lymphadenopathy. CARDIOVASCULAR: Regular rate and rhythm without murmurs, gallops, or rubs. RESPIRATORY: Breath sounds equal bilaterally. No accessory muscle use. GASTROINTESTINAL: Abdomen soft, non-tender, nondistended. MUSCULOSKELETAL: No cyanosis, or edema. BACK: Nontender without obvious deformity. No CVA tenderness. Data Data Last Documented VS Vital Signs Date Time Temp Pulse Resp B/P (MAP) Pulse Ox O2 Delivery O2 Flow Rate FiO2 04/04/17 05:26 95 97 Room Air 04/04/17 03:51 97.1 18 193/86 (121) Orders Orders Basic Metabolic Panel (Bmp) (04/04/17 04:14) Complete Blood Count With Diff (04/04/17 04:14) Lipase (04/04/17 04:14) Abdomen, Flat & Upright (04/04/17 ) Iv Access Insert/Monitor (04/04/17 04:14) Ecg Monitoring (04/04/17 04:14) Oximetry (04/04/17 04:14) Ondansetron Inj (Zofran Inj) (04/04/17 04:15) Sodium Chlor 0.9% 1000 Ml Inj (Ns 1000 M (04/04/17 04:14) Sodium Chloride 0.9% Flush (Ns Flush) (04/04/17 04:15) Ketorolac Inj (Toradol Inj) (04/04/17 05:00) Pantoprazole Inj (Protonix Inj) (04/04/17 05:00) Hydromorphone Pf Inj (Dilaudid Pf Inj) (04/04/17 05:30) Ed Discharge Order (04/04/17 05:30) Labs Laboratory Tests Test 04/04/17 04:20 04/04/17 04:40 White Blood Count 7.7 TH/MM3 Red Blood Count 4.96 MIL/MM3 Hemoglobin 14.8 GM/DL Hematocrit 44.4 % Mean Corpuscular Volume 89.6 FL Mean Corpuscular Hemoglobin 29.8 PG Mean Corpuscular Hemoglobin Concent 33.3 % Red Cell Distribution Width 12.6 % Platelet Count 256 TH/MM3 Mean Platelet Volume 9.1 FL Neutrophils (%) (Auto) 60.6 % Lymphocytes (%) (Auto) 29.1 % Monocytes (%) (Auto) 5.9 % Eosinophils (%) (Auto) 3.3 % Basophils (%) (Auto) 1.1 % Neutrophils # (Auto) 4.6 TH/MM3 Lymphocytes # (Auto) 2.2 TH/MM3 Monocytes # (Auto) 0.5 TH/MM3 Eosinophils # (Auto) 0.3 TH/MM3 Basophils # (Auto) 0.1 TH/MM3 CBC Comment DIFF FINAL Differential Comment Blood Urea Nitrogen 13 MG/DL Creatinine 0.81 MG/DL Random Glucose 194 MG/DL Calcium Level 8.8 MG/DL Sodium Level 137 MEQ/L Potassium Level 3.9 MEQ/L Chloride Level 106 MEQ/L Carbon Dioxide Level 20.4 MEQ/L Anion Gap 11 MEQ/L Estimat Glomerular Filtration Rate 75 ML/MIN Lipase 261 U/L MDM Medical Decision Making Medical Screen Exam Complete: Yes Emergency Medical Condition: Yes Medical Record Reviewed: Yes Interpretation(s) Last Impressions Abdomen X-Ray 04/04/17 0000 Signed Impressions: Service Date/Time: Tuesday, April 04, 2017 04:26 - CONCLUSION: Nonobstructive bowel gas pattern. Aram Bustillo MD CBC & BMP Diagram 04/04/17 04:20 2/12/18 04:40 Calcium Level 8.8 Vital Signs Date Time Temp Pulse Resp B/P (MAP) Pulse Ox O2 Delivery O2 Flow Rate FiO2 04/04/17 05:26 95 97 Room Air 04/04/17 03:51 97.1 104 18 193/86 (121) 97 Differential Diagnosis Chronic abdominal pain, gastritis, gastroparesis, pancreatitis, biliary colic, atypical chest pain, malingering Narrative Course IV access obtained specimens collected and sent for resulting patient administered Zofran IV fluids Patient continues to complain of nausea and vomiting with repetitive coughing and no witnessed intentional gagging Reglan administered Lab values and imaging study are within normal range patient given a one-time dose of Dilaudid and she immediately had proven of symptoms and was able to walk out without any distress. Diagnosis Primary Impression: Abdominal pain Referrals: [facility] 1 day Keep appointment as scheduled with your make up worker Dr. AGUILAR Patient Instructions: General Instructions, Narcotic given in the ED Additional Instructions: Increase fluid hydration Follow clear liquid diet for next 1224 hrs. Return to the emergency department for any concerns or change in condition Take chronic medications as chronically prescribed Med/Other Pt SpecificInfo: No Change to Meds Disposition: 01 DISCHARGE HOME Condition: Stable Abigail Godwin MD Apr 04, 2017 05:31
== END 2017-04-04 05:58 | disposition home or self-care (01) ==
LOC: PHED 03:50
DX: R10.13 Epigastric pain (principal); R11.2 Nausea with vomiting, unspecified; R05 Cough; K21.9 Gastro-esophageal reflux disease without esophagitis; E11.9 Type 2 diabetes mellitus without complications; E78.00 Pure hypercholesterolemia, unspecified; F31.9 Bipolar disorder, unspecified; F41.9 Anxiety disorder, unspecified; Z87.19 Personal history of other diseases of the digestive system
CPT/HCPCS: 74019; 80048; 83690; 85025; 96361; 96374; 96375; 99284; C9113; J1170; J1885; J2405; J7030

== ENCOUNTER 2017-04-12 13:16 | Emergency (ER) | payer OTHER ==
[~2017-04-12] VITALS: Ht 160 cm; Wt 74.0 kg
[~2017-04-12 13:16] MED LIST changes: +ESOM1CAP6 PO; -IBUP1TAB5 PO; -PROM25TA10 PO; -TRAM50TA PO; +XANA1TAB2 PO
[2017-04-12 13:23] VITALS: BP 171/95; PULSE 105; RESP 18; TEMP 98; O2SAT 99
[2017-04-12] MEDS ORDERED: ZOFR4TAB PO (13:39)
[2017-04-12] MEDS ORDERED: NEXI40CA PO (13:39)
[2017-04-12] MEDS ORDERED: SODIUM CHLOR 0.9% 1000 ML INJ 1,000 ML IV ONE (13:45)
[2017-04-12] MEDS ORDERED: ONDANSETRON HCL 4 MG/2 ML VIAL IV PUSH ONE (13:45)
--- NOTE | 2017-04-12 13:57 | PD ---
HPI Chief Complaint: Abdominal Pain Time Seen by Provider: 13:45 Travel History International Travel<30 days: No Contact w/Intl Traveler<30days: No Traveled to known affect area: No History of Present Illness HPI This 51-year-old female is complaining of epigastric pain and vomiting. She has had symptoms like this in the past and has been seen in the emergency department on multiple occasions. She has had a CAT scan did not reveal an etiology for his symptoms in February. She has a history of bipolar disorder and smokes marijuana. She says that the marijuana is usually helps of bipolar disorder.. PFSH Past Medical History Blood Disorders: No Bipolar Disorder: Yes (MANIC) Anxiety: Yes Depression: Yes Cancer: No Cardiac Catheterization: Yes Cardiovascular Problems: Yes High Cholesterol: Yes Diabetes: Yes Patient Takes Glucophage: No Diminished Hearing: No Endocrine: Yes Gastrointestinal Disorders: Yes (DIVERTICULITIS, GASTROPERESIS) GERD: Yes Genitourinary: No Hepatitis: No Hiatal Hernia: No Hypertension: No Immune Disorder: No Implanted Vascular Access Dvce: No Musculoskeletal: No Neurologic: No Psychiatric: Yes (manic depressive d/o) Reproductive: No Respiratory: No Immunizations Current: Yes Thyroid Disease: No Tetanus Vaccination: Unknown Influenza Vaccination: Yes ?: Not Menopausal: Yes : 8 Para: 3 Miscarriage: 3 : 2 Tubal Ligation: Yes Past Surgical History Abdominal Surgery: Yes ("1 FOOT OF BOWEL REMOVED DUE TO DIVERTICULITIS") Section: Yes (x2) Cholecystectomy: Yes Gynecologic Surgery: Yes (HYSTERECTOMY, TUBAL, C SECTION X 2) Hysterectomy: Yes Other Surgery: Yes (DIVERTICULI REPAIR EXPLORATORY SX, LEFT BREAST LUMP REMOVED ) Social History Alcohol Use: No Tobacco Use: No Substance Use: Yes (MARIJUANA EVERY DAY) Allergies-Medications (Allergen,Severity, Reaction): Coded Allergies: acetaminophen (Verified Allergy, Severe, Itching, 04/12/17) hydrocodone (Verified Allergy, Severe, ITCHING, 04/12/17) AND FAMILY OF CETS oxycodone (Verified Allergy, Severe, Itching, 04/12/17) propoxyphene (Verified Allergy, Severe, Itching, 04/12/17) Reported Meds & Prescriptions Reported Meds & Active Scripts Active Reported Zofran (Ondansetron HCl) 4 Mg Tab 4 Mg PO Q6HR PRN Nexium (Esomeprazole DR) 40 Mg Capdr 40 Mg PO BID Review of Systems General / Constitutional: No: Fever, Chills, Weight Gain, Weight Loss, Other Eyes: No: Diploplia, Blurred Vision HENT: No: Headaches, Vertigo Cardiovascular: No: Chest Pain or Discomfort, Palpitations Respiratory: No: Cough, Shortness of Breath Gastrointestinal: Positive: Nausea, Vomiting, Abdominal Pain Genitourinary: No: Urgency, Frequency Musculoskeletal: No: Myalgias Skin: No Rash, No Itching Neurologic: No: Weakness Psychiatric: Positive: Mood Disorder Endocrine: No: Cold Intolerance Hematologic/Lymphatic: No: Easy Bruising Physical Exam Narrative GENERAL: Patient is having persistent vomiting and pain on arrival SKIN: Focused skin assessment warm/dry. HEAD: Atraumatic. Normocephalic. EYES: Pupils equal and round. No scleral icterus. No injection or drainage. ENT: No nasal bleeding or discharge. Mucous membranes pink and moist. NECK: Trachea midline. No JVD. CARDIOVASCULAR: Regular rate and rhythm. No murmur appreciated. RESPIRATORY: No accessory muscle use. Clear to auscultation. Breath sounds equal bilaterally. GASTROINTESTINAL: Abdomen soft, there is epigastric tenderness nondistended. Hepatic and splenic margins not palpable. MUSCULOSKELETAL: No obvious deformities. No clubbing. No cyanosis. No edema. NEUROLOGICAL: Awake and alert. No obvious cranial nerve deficits. Motor grossly within normal limits. Normal speech. PSYCHIATRIC: Appropriate mood and affect; insight and judgment normal. Data Data Last Documented VS Vital Signs Date Time Temp Pulse Resp B/P (MAP) Pulse Ox O2 Delivery O2 Flow Rate FiO2 04/12/17 14:51 92 18 167/91 (116) 97 Room Air 04/12/17 13:23 98.0 Orders Orders Sodium Chlor 0.9% 1000 Ml Inj (Ns 1000 M (04/12/17 13:45) Ondansetron Inj (Zofran Inj) (04/12/17 13:45) Complete Blood Count With Diff (04/12/17 13:53) Comprehensive Metabolic Panel (04/12/17 13:53) Lipase (04/12/17 13:53) Urinalysis - C+S If Indicated (04/12/17 13:53) Hydromorphone Pf Inj (Dilaudid Pf Inj) (04/12/17 14:00) Hydromorphone Pf Inj (Dilaudid Pf Inj) (04/12/17 14:00) Labs Laboratory Tests Test 04/12/17 13:38 04/12/17 14:25 White Blood Count 14.3 TH/MM3 Red Blood Count 5.36 MIL/MM3 Hemoglobin 16.8 GM/DL Hematocrit 47.2 % Mean Corpuscular Volume 88.1 FL Mean Corpuscular Hemoglobin 31.3 PG Mean Corpuscular Hemoglobin Concent 35.5 % Red Cell Distribution Width 12.6 % Platelet Count 340 TH/MM3 Mean Platelet Volume 9.0 FL Neutrophils (%) (Auto) 71.6 % Lymphocytes (%) (Auto) 24.1 % Monocytes (%) (Auto) 2.3 % Eosinophils (%) (Auto) 1.4 % Basophils (%) (Auto) 0.6 % Neutrophils # (Auto) 10.3 TH/MM3 Lymphocytes # (Auto) 3.4 TH/MM3 Monocytes # (Auto) 0.3 TH/MM3 Eosinophils # (Auto) 0.2 TH/MM3 Basophils # (Auto) 0.1 TH/MM3 CBC Comment AUTO DIFF Differential Total Cells Counted 100 Neutrophils % (Manual) 59 % Band Neutrophils % 1 % Lymphocytes % 35 % Monocytes % 4 % Eosinophils % 1 % Neutrophils # (Manual) 8.6 TH/MM3 Differential Comment FINAL DIFF MANUAL Atypical Lymphocytes % Platelet Estimate NORMAL Platelet Morphology Comment NORMAL Red Cell Morphology Comment NORMAL Blood Urea Nitrogen 11 MG/DL Creatinine 0.96 MG/DL Random Glucose 160 MG/DL Total Protein 8.3 GM/DL Albumin 4.5 GM/DL Calcium Level 9.8 MG/DL Alkaline Phosphatase 78 U/L Aspartate Amino Transf (AST/SGOT) 15 U/L Alanine Aminotransferase (ALT/SGPT) 17 U/L Total Bilirubin 0.4 MG/DL Sodium Level 137 MEQ/L Potassium Level 4.2 MEQ/L Chloride Level 107 MEQ/L Carbon Dioxide Level 20.2 MEQ/L Anion Gap 10 MEQ/L Estimat Glomerular Filtration Rate 62 ML/MIN Lipase 141 U/L Urine pH 6.0 Urine Protein NEG mg/dL Urine Glucose (UA) NEG mg/dL Urine Ketones TRACE mg/dL Urine Occult Blood NEG Urine Nitrite NEG Urine Bilirubin NEG Urine Leukocyte Esterase NEG MDM Medical Decision Making Medical Screen Exam Complete: Yes Emergency Medical Condition: Yes Medical Record Reviewed: Yes Differential Diagnosis Differential diagnosis includes gastroparesis, gastroenteritis, cannabis hyperemesis syndrome Narrative Course Patient has had recurrent bouts like this. Her lab work today is similar to previous episodes. She has had multiple CAT scans which have not revealed an etiology. She has been given fluids and Dilaudid. She is stable for discharge. Diagnosis Primary Impression: Cannabinoid hyperemesis syndrome Disposition: 01 DISCHARGE HOME Condition: Stable Festus Jacome MD Apr 12, 2017 13:57
[2017-04-12] MEDS ORDERED: HYDROmorphone HCL PF 2 MG/ML VIAL IV PUSH ONE (14:00)
[2017-04-12] MEDS ORDERED: HYDROmorphone HCL PF 1 MG/ML VIAL IV PUSH ONE (14:00)
[2017-04-12 14:15] LABS: CHLORIDE 107 MEQ/L (98-107); SODIUM (NA) 137 MEQ/L (136-145)
[2017-04-12 14:18] LABS: ALBUMIN 4.5 GM/DL (3.4-5.0); AUTOMATED NEUTROPHIL # 10.3 TH/MM3 (1.8-7.7); BASOPHIL # 0.1 TH/MM3 (0-0.2); BASOPHIL % 0.6 % (0.0-2.0); BICARBONATE 20.2 MEQ/L (21.0-32.0); BLOOD UREA NITROGEN 11 MG/DL (7-18); CALCIUM 9.8 MG/DL (8.5-10.1); EOSINOPHIL # 0.2 TH/MM3 (0-0.4); EOSINOPHIL % 1.4 % (0.0-4.0); GLUCOSE,RANDOM 160 MG/DL (74-106); HEMATOCRIT 47.2 % (35.0-46.0); HEMOGLOBIN 16.8 GM/DL (11.6-15.3); LYMPH % 24.1 % (9.0-44.0); LYMPHOCYTE # 3.4 TH/MM3 (1.0-4.8); MEAN CELL VOLUME 88.1 FL (80.0-100.0); MEAN CORPUSCULAR HEMOGLOBIN 31.3 PG (27.0-34.0); MEAN CORPUSCULAR HGB CONC 35.5 % (32.0-36.0); MONO % 2.3 % (0.0-8.0); MONOCYTE # 0.3 TH/MM3 (0-0.9); NEUT % 71.6 % (16.0-70.0); PLATELET COUNT 340 TH/MM3 (150-450); RED BLOOD COUNT 5.36 MIL/MM3 (4.00-5.30); RED CELL DISTRIBUTION WIDTH 12.6 % (11.6-17.2); WHITE BLOOD COUNT 14.3 TH/MM3 (4.0-11.0)
[2017-04-12 14:21] LABS: ALT (GPT) 17 U/L (10-53); AST (GOT) 15 U/L (15-37); CREATININE 0.96 MG/DL (0.50-1.00); GLOMERULAR FILTRATION RATE 62 ML/MIN (>89)
[2017-04-12 14:23] LABS: TOTAL BILIRUBIN ADULT 0.4 MG/DL (0.2-1.0); TOTAL PROTEIN 8.3 GM/DL (6.4-8.2)
[2017-04-12 14:24] LABS: ALKALINE PHOSPHATASE 78 U/L (45-117)
[2017-04-12 14:51] VITALS: BP 167/91; PULSE 92; RESP 18; O2SAT 97
[2017-04-12 15:00] LABS: BANDS 1 % (0-6); LYMPHOCYTES 35 % (9-44); MONOCYTES 4 % (0-8); NEUTROPHIL # MANUAL DIFF 8.6 TH/MM3 (1.8-7.7); POLYS (SEG NEUTROPHILS) 59 % (16-70)
[2017-04-12 15:02] LABS: BILIRUBIN, URINE NEG (NEG); BLOOD, URINE NEG (NEG); GLUCOSE,URINE NEG (NEG); KETONE, URINE TRACE mg/dL (NEG); NITRITE,URINE NEG (NEG); URINE LEUKOCYTE ESTERASE NEG (NEG)
[2017-04-12 15:07] LABS: URINE COLOR YELLOW (YELLW/STRAW)
[2017-04-12 15:09] LABS: BACTERIA, URINE FEW /hpf; HYALINE CAST, URINE 0-2 /lpf (RARE); MUCUS URINE OCC /lpf (OCC); SQUAMOUS EPITHELIAL CELL URINE 0-5 /hpf (0-5); WBC, URINE 0-2 /hpf (0-5)
== END 2017-04-12 15:29 | disposition home or self-care (01) ==
LOC: PHED 13:16
DX: F12.988 Cannabis use, unspecified with other cannabis-induced disorder (principal); F31.9 Bipolar disorder, unspecified; F41.8 Other specified anxiety disorders; E78.00 Pure hypercholesterolemia, unspecified; E11.9 Type 2 diabetes mellitus without complications; K21.9 Gastro-esophageal reflux disease without esophagitis; Z87.19 Personal history of other diseases of the digestive system
CPT/HCPCS: 80053; 81001; 83690; 85007; 85027; 96361; 96374; 96375; 99283; J1170; J2405; J7030

== ENCOUNTER 2017-05-16 05:48 | Emergency (ER) | payer OTHER ==
[~2017-05-16] VITALS: Ht 160 cm; Wt 71.6 kg
[~2017-05-16 05:48] MED LIST changes: -ESOM1CAP6 PO; +NEXI40CA PO; -XANA1TAB2 PO; +ZOFR4TAB PO
[2017-05-16 06:03] VITALS: BP 167/87; PULSE 93; RESP 20; TEMP 98.1
[2017-05-16] MEDS ORDERED: HYDR50CA PO (06:11)
[2017-05-16] MEDS ORDERED: SODIUM CHLOR 0.9% 1000 ML INJ 1,000 ML IV SCH (06:27)
[2017-05-16] MEDS ORDERED: SODIUM CHLORIDE 0.9% FLUSH 10 ML FLUSH IV FLUSH PRN (06:30)
[2017-05-16] MEDS ORDERED: MORPHINE SULFATE 4 MG/ML INJ IV PUSH ONE (06:30)
[2017-05-16] MEDS ORDERED: PROCHLORPERAZINE INJ 10 MG/2 ML VIAL IV PUSH ONE (06:30)
--- NOTE | 2017-05-16 06:34 | PD ---
HPI Chief Complaint: Abdominal Pain Time Seen by Provider: 06:22 Travel History International Travel<30 days: No Contact w/Intl Traveler<30days: No Traveled to known affect area: No History of Present Illness HPI The patient is a 51-year-old female who presents to the emergency department for nausea, vomiting, and abdominal pain. The patient states the abdominal pain started last night, waking her from sleep. The abdominal pain is located over the left flank and left lower quadrant, nonradiating, associated nausea and vomiting. The patient had one stool which she describes as brown with mucus surrounding the stool. The patient does have a history of gastroparesis and hyperemesis cannabis syndrome, does smoke marijuana daily. However, the patient states she normally has epigastric abdominal pain with her gastroparesis, states this pain is different. She does have a history of previous partial bowel resection secondary to diverticulitis. She denies any history of nephrolithiasis. She denies any fever, chills, or sweats. The patient took 2 separate doses of Zofran 4 mg at home without any alleviation of her nausea and vomiting. Symptoms are moderate. PFSH Past Medical History Blood Disorders: No Bipolar Disorder: Yes (MANIC) Anxiety: Yes Depression: Yes Cancer: No Cardiac Catheterization: Yes Cardiovascular Problems: Yes High Cholesterol: Yes Diabetes: Yes Patient Takes Glucophage: No Diminished Hearing: No Endocrine: Yes Gastrointestinal Disorders: Yes (DIVERTICULITIS, GASTROPERESIS) GERD: Yes Genitourinary: No Hepatitis: No Hiatal Hernia: No Hypertension: No Immune Disorder: No Implanted Vascular Access Dvce: No Musculoskeletal: No Neurologic: No Psychiatric: Yes (manic depressive d/o) Reproductive: No Respiratory: No Immunizations Current: Yes Thyroid Disease: No Influenza Vaccination: No ?: Not Menopausal: Yes : 8 Para: 3 Miscarriage: 3 : 2 Tubal Ligation: Yes Past Surgical History Abdominal Surgery: Yes ("1 FOOT OF BOWEL REMOVED DUE TO DIVERTICULITIS") Section: Yes (x2) Cholecystectomy: Yes Gynecologic Surgery: Yes (HYSTERECTOMY, TUBAL, C SECTION X 2) Hysterectomy: Yes (Partial ) Other Surgery: Yes (DIVERTICULI REPAIR EXPLORATORY SX, LEFT BREAST LUMP REMOVED ) Social History Alcohol Use: No Tobacco Use: No Substance Use: Yes (MARIJUANA EVERY DAY) Allergies-Medications (Allergen,Severity, Reaction): Coded Allergies: acetaminophen (Verified Allergy, Severe, Itching, 05/16/17) hydrocodone (Verified Allergy, Severe, ITCHING, 05/16/17) AND FAMILY OF CETS oxycodone (Verified Allergy, Severe, Itching, 05/16/17) propoxyphene (Verified Allergy, Severe, Itching, 05/16/17) Reported Meds & Prescriptions Reported Meds & Active Scripts Active Reported Hydroxyzine Pamoate 50 Mg Cap 50 Mg PO HS Zofran (Ondansetron HCl) 4 Mg Tab 4 Mg PO Q6HR PRN Nexium (Esomeprazole DR) 40 Mg Capdr 40 Mg PO BID Review of Systems Except as stated in HPI: all other systems reviewed are Neg General / Constitutional: No: Fever, Chills Cardiovascular: No: Chest Pain or Discomfort Respiratory: No: Shortness of Breath Gastrointestinal: Positive: Nausea, Vomiting, Abdominal Pain, No: Diarrhea Genitourinary: No: Dysuria, Hematuria Physical Exam Narrative GENERAL: Awake, alert, 51-year-old female who appears her stated age and is in no acute respiratory distress. SKIN: Focused skin assessment warm/dry. HEAD: Atraumatic. Normocephalic. EYES: Pupils equal and round. No scleral icterus. No injection or drainage. ENT: No nasal bleeding or discharge. Slightly dry mucous membranes. NECK: Trachea midline. No JVD. CARDIOVASCULAR: Regular rate and rhythm. No murmur appreciated. Heart rate in the 90s. RESPIRATORY: No accessory muscle use. Clear to auscultation. Breath sounds equal bilaterally. GASTROINTESTINAL: Abdomen soft, n tender to palpation left lower quadrant. Well -healed surgical scars. No guarding or rigidity. MUSCULOSKELETAL: No obvious deformities. No clubbing. No cyanosis. No edema. NEUROLOGICAL: Awake and alert. No obvious cranial nerve deficits. Motor grossly within normal limits. Normal speech. PSYCHIATRIC: Appropriate mood and affect; insight and judgment normal. Data Data Last Documented VS Vital Signs Date Time Temp Pulse Resp B/P (MAP) Pulse Ox O2 Delivery O2 Flow Rate FiO2 05/16/17 07:58 88 18 134/68 (90) 96 05/16/17 07:03 Room Air 05/16/17 06:03 98.1 Orders Orders Complete Blood Count With Diff (05/16/17 06:27) Comprehensive Metabolic Panel (05/16/17 06:27) Lipase (3/26/18 06:27) Lactic Acid (05/16/17 06:27) Ct Abd/Pel W/O Iv Contrast (05/16/17 06:27) Iv Access Insert/Monitor (05/16/17 06:27) Ecg Monitoring (05/16/17:27) Oximetry (05/16/17 06:27) Morphine Inj (Morphine Inj) (05/16/17 06:30) Sodium Chlor 0.9% 1000 Ml Inj (Ns 1000 M (05/16/17 06:27) Sodium Chloride 0.9% Flush (Ns Flush) (05/16/17 06:30) Prochlorperazine Inj (Compazine Inj) (05/16/17 06:30) Ketorolac Inj (Toradol Inj) (05/16/17 07:30) Ed Discharge Order (05/16/17 07:47) Labs Laboratory Tests Test 05/16/17 06:30 White Blood Count 12.6 TH/MM3 Red Blood Count 5.45 MIL/MM3 Hemoglobin 16.0 GM/DL Hematocrit 48.6 % Mean Corpuscular Volume 89.1 FL Mean Corpuscular Hemoglobin 29.3 PG Mean Corpuscular Hemoglobin Concent 32.8 % Red Cell Distribution Width 12.0 % Platelet Count 272 TH/MM3 Mean Platelet Volume 8.8 FL Neutrophils (%) (Auto) 78.3 % Lymphocytes (%) (Auto) 16.0 % Monocytes (%) (Auto) 1.5 % Eosinophils (%) (Auto) 3.7 % Basophils (%) (Auto) 0.5 % Neutrophils # (Auto) 9.8 TH/MM3 Lymphocytes # (Auto) 2.0 TH/MM3 Monocytes # (Auto) 0.2 TH/MM3 Eosinophils # (Auto) 0.5 TH/MM3 Basophils # (Auto) 0.1 TH/MM3 CBC Comment DIFF FINAL Differential Comment Blood Urea Nitrogen 14 MG/DL Creatinine 0.91 MG/DL Random Glucose 203 MG/DL Total Protein 7.8 GM/DL Albumin 4.1 GM/DL Calcium Level 9.6 MG/DL Alkaline Phosphatase 86 U/L Aspartate Amino Transf (AST/SGOT) 12 U/L Alanine Aminotransferase (ALT/SGPT) 17 U/L Total Bilirubin 0.3 MG/DL Sodium Level 138 MEQ/L Potassium Level 4.0 MEQ/L Chloride Level 106 MEQ/L Carbon Dioxide Level 22.1 MEQ/L Anion Gap 10 MEQ/L Estimat Glomerular Filtration Rate 65 ML/MIN Lactic Acid Level 1.9 mmol/L Lipase 187 U/L [facility] Medical Decision Making Medical Screen Exam Complete: Yes Emergency Medical Condition: Yes Medical Record Reviewed: Yes Differential Diagnosis Differential diagnosis includes diverticulitis, nephrolithiasis, pyelonephritis , pancreatitis, gastroparesis, gastritis, peptic ulcer disease. Narrative Course IV was established, labs were drawn and sent, and the patient was placed on cardiac telemetry monitoring and continuous pulse oximetry monitoring. The patient was administered morphine, Compazine, and IV fluids. CT of the abdomen and pelvis was performed to evaluate for possible diverticulitis. The patient was signed out to the oncoming physician at 7 AM. Diagnosis Primary Impression: Abdominal pain Qualified Codes: R10.32 - Left lower quadrant pain Condition: Stable Franco Valdez MD May 16, 2017 06:34
[2017-05-16 06:45] LABS: AUTOMATED NEUTROPHIL # 9.8 TH/MM3 (1.8-7.7); BASOPHIL # 0.1 TH/MM3 (0-0.2); BASOPHIL % 0.5 % (0.0-2.0); EOSINOPHIL # 0.5 TH/MM3 (0-0.4); EOSINOPHIL % 3.7 % (0.0-4.0); HEMATOCRIT 48.6 % (35.0-46.0); MEAN CELL VOLUME 89.1 FL (80.0-100.0); MEAN CORPUSCULAR HEMOGLOBIN 29.3 PG (27.0-34.0); MEAN CORPUSCULAR HGB CONC 32.8 % (32.0-36.0); MEAN PLATELET VOLUME 8.8 FL (7.0-11.0); MONO % 1.5 % (0.0-8.0); MONOCYTE # 0.2 TH/MM3 (0-0.9); NEUT % 78.3 % (16.0-70.0); PLATELET COUNT 272 TH/MM3 (150-450); RED BLOOD COUNT 5.45 MIL/MM3 (4.00-5.30); WHITE BLOOD COUNT 12.6 TH/MM3 (4.0-11.0)
[2017-05-16 06:53] LABS: CHLORIDE 106 MEQ/L (98-107); SODIUM (NA) 138 MEQ/L (136-145)
[2017-05-16 06:57] LABS: ALBUMIN 4.1 GM/DL (3.4-5.0); BICARBONATE 22.1 MEQ/L (21.0-32.0); BLOOD UREA NITROGEN 14 MG/DL (7-18); CALCIUM 9.6 MG/DL (8.5-10.1); GLUCOSE,RANDOM 203 MG/DL (74-106)
[2017-05-16 07:00] LABS: ALT (GPT) 17 U/L (10-53); AST (GOT) 12 U/L (15-37); CREATININE 0.91 MG/DL (0.50-1.00); GLOMERULAR FILTRATION RATE 65 ML/MIN (>89)
[2017-05-16 07:02] LABS: TOTAL BILIRUBIN ADULT 0.3 MG/DL (0.2-1.0); TOTAL PROTEIN 7.8 GM/DL (6.4-8.2)
[2017-05-16 07:03] VITALS: O2SAT 97
[2017-05-16 07:03] LABS: ALKALINE PHOSPHATASE 86 U/L (45-117)
[2017-05-16] MEDS ORDERED: KETOROLAC TROMETHAMINE 30 MG/ML (IVP) VIAL IV PUSH ONE (07:30)
--- NOTE | 2017-05-16 07:32 | RADRPT ---
EXAM DATE/TIME: 05/16/2017 06:48 [place] COMPARISON: No previous studies available for comparison. INDICATIONS : Left lower quadrant pain. ORAL CONTRAST: No oral contrast ingested. RADIATION DOSE: 11.65 CTDIvol (mGy) MEDICAL HISTORY : Diabetes mellitus type 2. Diverticulitis. Gastroesophageal reflux disease. SURGICAL HISTORY : Colon resection. Cholecystectomy.Hysterectomy. ENCOUNTER: Initial ACUITY: 1 day PAIN SCALE: 10/10 LOCATION: Left lower quadrant TECHNIQUE: Volumetric scanning of the abdomen and pelvis was performed. Using automated exposure control and ad justment of the mA and/or kV according to patient size, radiation dose was kept as low as reasonably achievable to obtain optimal diagnostic quality images. DICOM format image data is available electro nically for review and comparison. FINDINGS: LOWER LUNGS: The visualized lower lungs are clear. LIVER: Homogeneous density without lesion. There is no dilation of the biliary tree. The patient is status post cholecystectomy. SPLEEN: Normal size without lesion. PANCREAS: Within normal limits. KIDNEYS: Normal in size and shape. There is no mass, stone, or hydronephrosis. ADRENAL GLANDS: Within normal limits. VASCULAR: There is no aortic aneurysm. Arterial calcifications are present. BOWEL/MESENTERY: There is a bowel anastomosis suture at the distal sigmoid colon. There are diverticula seen just prox imal to the anastomosis. Significant inflammatory change is not seen. ABDOMINAL WALL: Within normal limits. RETROPERITONEUM: There is no lymphadenopathy. BLADDER: No wall thickening or mass. REPRODUCTIVE: Within normal limits. There are clips in the adnexal regions likely from prior tubal ligation. INGUINAL: There is no lymphadenopathy or hernia. MUSCULOSKELETAL: There is degenerative change at the lumbar spine. CONCLUSION: Status post sigmoid colon resection with anastomosis suture seen at the distal sigmoid colon. There a re diverticula seen just proximal to the anastomosis without inflammatory change. Tera Bansal MD on May 16, 2017 at 7:24 Board Certified Radiologist. This report was verified electronically.
--- NOTE | 2017-05-16 07:47 | PD ---
Physical Exam Date Seen by Provider: May 16, 2017 Time Seen by Provider: 07:45 Narrative 51-year-old female came to the emergency room with history of abdominal pain. She was seen by the previous ER physician. Please refer to his history and physical for further details. Case was signed out to me to follow-up on the CAT scan of her abdomen and pelvis report. Patient meanwhile continue to complain of abdominal pain and a repeat pain medication was ordered by me. CAT scan report just came back and shows partial colon resection. Patient has diverticulosis but no diverticulitis. I discussed this with the patient and she seems to be satisfied with that. She is comfortable going home. I've asked her to follow up with her colon surgeon Dr. Read. She'll call his office this morning. Data Data Last Documented VS Orders Orders Complete Blood Count With Diff (05/16/17 06:27) Comprehensive Metabolic Panel (05/16/17 06:27) Lipase (05/16/17 06:27) Lactic Acid (05/16/17 06:27) Ct Abd/Pel W/O Iv Contrast (05/16/17 06:27) Iv Access Insert/Monitor (05/16/17 06:27) Ecg Monitoring (05/16/17 06:27) Oximetry (05/16/17 06:27) Morphine Inj (Morphine Inj) (05/16/17 06:30) Sodium Chlor 0.9% 1000 Ml Inj (Ns 1000 M (05/16/17 06:27) Sodium Chloride 0.9% Flush (Ns Flush) (05/16/17 06:30) Prochlorperazine Inj (Compazine Inj) (05/16/17 06:30) Ketorolac Inj (Toradol Inj) (05/16/17 07:30) Ed Discharge Order (05/16/17 07:47) Labs Laboratory Tests Test 05/16/17 06:30 White Blood Count 12.6 TH/MM3 Red Blood Count 5.45 MIL/MM3 Hemoglobin 16.0 GM/DL Hematocrit 48.6 % Mean Corpuscular Volume 89.1 FL Mean Corpuscular Hemoglobin 29.3 PG Mean Corpuscular Hemoglobin Concent 32.8 % Red Cell Distribution Width 12.0 % Platelet Count 272 TH/MM3 Mean Platelet Volume 8.8 FL Neutrophils (%) (Auto) 78.3 % Lymphocytes (%) (Auto) 16.0 % Monocytes (%) (Auto) 1.5 % Eosinophils (%) (Auto) 3.7 % Basophils (%) (Auto) 0.5 % Neutrophils # (Auto) 9.8 TH/MM3 Lymphocytes # (Auto) 2.0 TH/MM3 Monocytes # (Auto) 0.2 TH/MM3 Eosinophils # (Auto) 0.5 TH/MM3 Basophils # (Auto) 0.1 TH/MM3 CBC Comment DIFF FINAL Differential Comment Blood Urea Nitrogen 14 MG/DL Creatinine 0.91 MG/DL Random Glucose 203 MG/DL Total Protein 7.8 GM/DL Albumin 4.1 GM/DL Calcium Level 9.6 MG/DL Alkaline Phosphatase 86 U/L Aspartate Amino Transf (AST/SGOT) 12 U/L Alanine Aminotransferase (ALT/SGPT) 17 U/L Total Bilirubin 0.3 MG/DL Sodium Level 138 MEQ/L Potassium Level 4.0 MEQ/L Chloride Level 106 MEQ/L Carbon Dioxide Level 22.1 MEQ/L Anion Gap 10 MEQ/L Estimat Glomerular Filtration Rate 65 ML/MIN Lactic Acid Level 1.9 mmol/L Lipase 187 U/L MDM Supervised Visit with OMAR: No Diagnosis Primary Impression: Abdominal pain Qualified Codes: R10.32 - Left lower quadrant pain Referrals: Tera Ceja MD 2 days Primary Care Physician Additional Instruction: Please call Dr. Read's office to make an appointment. Return to the emergency room if the condition worsens or any other new concerns. Otherwise follow-up with your primary care. Disposition: 01 DISCHARGE HOME Condition: Stable Loy Tomlinson MD May 16, 2017 07:47
[2017-05-16 07:58] VITALS: BP 134/68
== END 2017-05-16 08:01 | disposition home or self-care (01) ==
LOC: PHED 05:48
DX: R10.32 Left lower quadrant pain (principal); R11.2 Nausea with vomiting, unspecified; E11.43 Type 2 diabetes mellitus with diabetic autonomic (poly)neuropathy; K31.84 Gastroparesis; F31.89 Other bipolar disorder; F41.9 Anxiety disorder, unspecified; E78.00 Pure hypercholesterolemia, unspecified; K21.9 Gastro-esophageal reflux disease without esophagitis; Z79.899 Other long term (current) drug therapy
CPT/HCPCS: 74176; 80053; 83605; 83690; 85025; 96361; 96374; 96375; 99285; J0780; J1885; J2270; J7030

== ENCOUNTER 2017-06-14 02:03 | Emergency (ER) | payer OTHER ==
[~2017-06-14] VITALS: Ht 160 cm; Wt 72.1 kg
[~2017-06-14 02:03] MED LIST changes: +HYDR50CA PO
[2017-06-14 02:10] VITALS: BP 157/89; PULSE 98; RESP 20; TEMP 97.9; O2SAT 98
[2017-06-14] MEDS ORDERED: SODIUM CHLOR 0.9% 1000 ML INJ 1,000 ML IV SCH (02:21)
[2017-06-14] MEDS ORDERED: ONDANSETRON HCL 4 MG/2 ML VIAL IVP ONE (02:30)
[2017-06-14 02:46] LABS: AUTOMATED NEUTROPHIL # 5.6 TH/MM3 (1.8-7.7); BASOPHIL # 0.2 TH/MM3 (0-0.2); BASOPHIL % 2.4 % (0.0-2.0); EOSINOPHIL # 0.6 TH/MM3 (0-0.4); EOSINOPHIL % 6.4 % (0.0-4.0); HEMATOCRIT 45.4 % (35.0-46.0); HEMOGLOBIN 15.4 GM/DL (11.6-15.3); LYMPH % 24.2 % (9.0-44.0); LYMPHOCYTE # 2.2 TH/MM3 (1.0-4.8); MEAN CELL VOLUME 86.7 FL (80.0-100.0); MEAN CORPUSCULAR HEMOGLOBIN 29.4 PG (27.0-34.0); MEAN CORPUSCULAR HGB CONC 33.9 % (32.0-36.0); MEAN PLATELET VOLUME 8.2 FL (7.0-11.0); MONO % 5.4 % (0.0-8.0); MONOCYTE # 0.5 TH/MM3 (0-0.9); NEUT % 61.6 % (16.0-70.0); PLATELET COUNT 260 TH/MM3 (150-450); RED BLOOD COUNT 5.23 MIL/MM3 (4.00-5.30); RED CELL DISTRIBUTION WIDTH 12.8 % (11.6-17.2); WHITE BLOOD COUNT 9.1 TH/MM3 (4.0-11.0)
[2017-06-14 02:57] LABS: BICARBONATE 26.6 MEQ/L (21.0-32.0); CALCIUM 9.6 MG/DL (8.5-10.1)
[2017-06-14 03:00] LABS: CREATININE 0.9 MG/DL (0.50-1.00)
--- NOTE | 2017-06-14 03:01 | PD ---
HPI Chief Complaint: GI Complaint Time Seen by Provider: 02:21 Travel History International Travel<30 days: No Contact w/Intl Traveler<30days: No Traveled to known affect area: No History of Present Illness HPI 51-year-old female presents to the emergency department for complaint of vomiting and abdominal pain onset last night and recurrence tonight. Patient states that she feels like she is burning and is concerned that her symptoms may be related to menopause. Patient has history of chronic recurrent abdominal pain, gastroparesis, and marijuana-induced hyperemesis syndrome. Patient has been followed by rotary cutter feeder with endoscopy and esophageal studies, she has been followed by her primary care provider, as well as, colorectal surgeon. Patient has been told that they cannot identify what her source of pain is due to. Patient has been referred to [facility] but has not done follow-up with this facility. Patient states that she takes Zofran as needed for nausea vomiting, Advil as needed for pain, and Nexium for reflux. Patient reports she did not take these medications for her symptoms tonight or last night. Patient also has history of bipolar disorder, diabetes, dyslipidemia , diverticulosis, diverticulitis, ovarian cysts, partial hysterectomy, tubal ligation, and previous partial colectomy. Patient does not report any fever, states she has intermittent chills, does not report shortness of breath or chest pain; complains of chronic recurrent abdominal pain, complains of nausea and vomiting without hematemesis or coffee-ground emesis, does not report posttussive emesis, does not report any diarrhea or dysuria or other complaint. Patient states that she has been to multiple providers and no one can figure out what is wrong with her; patient reports, "I just want someone to figure out what is wrong with me". Patient is unable to identify exacerbating or alleviating factors. The patient rates her pain 7/10 in intensity; patient has taken no medications prior to arrival to the ED for her symptoms. Patient has been seen in this facility numerous times for same complaint has had CAT scan as recently as May 16 which revealed no acute intra-abdominal or pelvic abnormality. PFSH Past Medical History Narrative Medical Gastroparesis marijuana hyperemesis syndrome bipolar disorder diabetes dyslipidemia diverticulosis diverticulitis ovarian cysts partial hysterectomy tubal ligation previous partial colectomy; daily marijuana use; nursing notes reviewed Blood Disorders: No Bipolar Disorder: Yes (MANIC) Anxiety: Yes Depression: Yes Cancer: No Cardiac Catheterization: Yes Cardiovascular Problems: Yes High Cholesterol: Yes Diabetes: Yes Patient Takes Glucophage: No Diminished Hearing: No Endocrine: Yes Gastrointestinal Disorders: Yes (DIVERTICULITIS, GASTROPERESIS) GERD: Yes Genitourinary: No Hepatitis: No Hiatal Hernia: No Hypertension: No Immune Disorder: No Implanted Vascular Access Dvce: No Musculoskeletal: No Neurologic: No Psychiatric: Yes (manic depressive d/o) Reproductive: No Respiratory: No Immunizations Current: Yes Thyroid Disease: No Tetanus Vaccination: Unknown Influenza Vaccination: Yes ?: Not Menopausal: Yes : 8 Para: 3 Miscarriage: 3 : 2 Tubal Ligation: Yes Past Surgical History Abdominal Surgery: Yes ("1 FOOT OF BOWEL REMOVED DUE TO DIVERTICULITIS") Section: Yes (x2) Cholecystectomy: Yes Gynecologic Surgery: Yes (HYSTERECTOMY, TUBAL, C SECTION X 2) Hysterectomy: Yes Other Surgery: Yes (DIVERTICULI REPAIR EXPLORATORY SX, LEFT BREAST LUMP REMOVED ) Social History Alcohol Use: No Tobacco Use: No Substance Use: Yes (MARIJUANA EVERY DAY) Allergies-Medications (Allergen,Severity, Reaction): Coded Allergies: acetaminophen (Verified Allergy, Severe, Itching, 06/14/17) hydrocodone (Verified Allergy, Severe, ITCHING, 06/14/17) AND FAMILY OF CETS oxycodone (Verified Allergy, Severe, Itching, 06/14/17) prochlorperazine (Verified Allergy, Severe, Hallucinations, 06/14/17) propoxyphene (Verified Allergy, Severe, Itching, 06/14/17) Reported Meds & Prescriptions Reported Meds & Active Scripts Active Reported Hydroxyzine Pamoate 50 Mg Cap 50 Mg PO HS Zofran (Ondansetron HCl) 4 Mg Tab 4 Mg PO Q6HR PRN Nexium (Esomeprazole DR) 40 Mg Capdr 40 Mg PO BID Review of Systems Except as stated in HPI: all other systems reviewed are Neg General / Constitutional: No: Fever HENT: No: Congestion Cardiovascular: No: Chest Pain or Discomfort Respiratory: No: Shortness of Breath Gastrointestinal: Positive: Nausea, Vomiting, Abdominal Pain, No: Hematemesis, Hematochezia Genitourinary: No: Flank Pain Musculoskeletal: No: Pain Skin: No Rash Neurologic: No: Weakness Psychiatric: Positive: Anxiety Hematologic/Lymphatic: No: Lymph Node Enlargement Physical Exam Narrative GENERAL: Well-developed well-nourished female crying holding multiple Kleenex blowing her nose and coughing until she spits mucus into the emesis bag; during exam stands up next to exam stretcher and states "I am sorry, I am sorry; no one can figure out what is wrong with me. I've seen everyone and no one can fix it". SKIN: Warm and dry. HEAD: Normocephalic. EYES: No scleral icterus. No injection or drainage. NECK: Supple, trachea midline. No JVD or lymphadenopathy. CARDIOVASCULAR: Regular rate and rhythm without murmurs, gallops, or rubs. RESPIRATORY: Breath sounds equal bilaterally. No accessory muscle use. GASTROINTESTINAL: Abdomen soft, non-tender, nondistended. Well healed postsurgical scars on the abdominal wall without induration erythema drainage or point tenderness. MUSCULOSKELETAL: No cyanosis, or edema. BACK: Nontender without obvious deformity. No CVA tenderness. Data Data Last Documented VS Vital Signs Date Time Temp Pulse Resp B/P (MAP) Pulse Ox O2 Delivery O2 Flow Rate FiO2 06/14/17 03:08 88 18 143/79 (100) 99 Room Air 06/14/17 02:10 97.9 Orders Orders Basic Metabolic Panel (Bmp) (06/14/17 02:21) Complete Blood Count With Diff (06/14/17 02:21) Lipase (06/14/17 02:21) Iv Access Insert/Monitor (06/14/17 02:21) Ondansetron Inj (Zofran Inj) (06/14/17 02:30) Sodium Chlor 0.9% 1000 Ml Inj (Ns 1000 M (06/14/17 02:21) Abdomen, Upright Only (06/14/17 02:21) Pantoprazole Inj (Protonix Inj) (06/14/17 03:15) Labs Laboratory Tests Test 06/14/17 02:38 White Blood Count 9.1 TH/MM3 Red Blood Count 5.23 MIL/MM3 Hemoglobin 15.4 GM/DL Hematocrit 45.4 % Mean Corpuscular Volume 86.7 FL Mean Corpuscular Hemoglobin 29.4 PG Mean Corpuscular Hemoglobin Concent 33.9 % Red Cell Distribution Width 12.8 % Platelet Count 260 TH/MM3 Mean Platelet Volume 8.2 FL Neutrophils (%) (Auto) 61.6 % Lymphocytes (%) (Auto) 24.2 % Monocytes (%) (Auto) 5.4 % Eosinophils (%) (Auto) 6.4 % Basophils (%) (Auto) 2.4 % Neutrophils # (Auto) 5.6 TH/MM3 Lymphocytes # (Auto) 2.2 TH/MM3 Monocytes # (Auto) 0.5 TH/MM3 Eosinophils # (Auto) 0.6 TH/MM3 Basophils # (Auto) 0.2 TH/MM3 CBC Comment DIFF FINAL Differential Comment Blood Urea Nitrogen 11 MG/DL Creatinine 0.90 MG/DL Random Glucose 224 MG/DL Calcium Level 9.6 MG/DL Sodium Level 138 MEQ/L Potassium Level 3.9 MEQ/L Chloride Level 103 MEQ/L Carbon Dioxide Level 26.6 MEQ/L Anion Gap 8 MEQ/L Estimat Glomerular Filtration Rate 66 ML/MIN Lipase 165 U/L MDM Medical Decision Making Medical Screen Exam Complete: Yes Emergency Medical Condition: Yes Medical Record Reviewed: Yes Interpretation(s) CBC & BMP Diagram 06/14/17 02:38 Calcium Level 9.6 AXR: nsbgp, no obstructive pattern and no subdiaphragmatic free air FINDINGS: A single erect view of the abdomen demonstrates the lower lungs to be clear. No evidence of free intraperitoneal gas. The visualized bowel loops are unremarkable. CONCLUSION: 1. No acute findings. Surgical clips right upper quadrant. Peter Pak MD on June 14, 2017 at 3:18 Board Certified Radiologist. This report was verified electronically. Differential Diagnosis Abdominal pain, exacerbation gastroparesis, cyclic vomiting syndrome, depression , mood disorder, bipolar disorder, marijuana hyperemesis syndrome Narrative Course Patient administered IV fluids Zofran and Protonix; specimens collected and sent for resulting CBC is automated differential values grossly within normal range metabolic panel remarkable for random glucose of 224 otherwise vitals are grossly within normal range including bicarb and anion gap Patient informed of lab results and unremarkable chest x-ray has received IV fluids Protonix and Zofran; patient's had no further vomiting; patient is stable for outpatient management and follow-up with her primary care provider Diagnosis Primary Impression: Recurrent abdominal pain Additional Impression: Hyperglycemia Referrals: X Ray Equipment Tester call for appointment Primary Care Physician call for appointment Patient Instructions: General Instructions Additional Instructions: Increase fluid hydration Follow-up with your primary care provider call office to schedule appointment Follow-up with your rotary cutter feeder call office to schedule appointment Return to the emergency department for any concerns or change in condition Continue your current medications as chronically prescribed Med/Other Pt SpecificInfo: No Change to Meds Disposition: 01 DISCHARGE HOME Condition: Stable Abigail Godwin MD Jun 14, 2017 03:01
[2017-06-14 03:08] VITALS: BP 143/79; PULSE 88; RESP 18; O2SAT 99
[2017-06-14] MEDS ORDERED: PANTOPRAZOLE SODIUM 40 MG VIAL IV PUSH ONE (03:15)
--- NOTE | 2017-06-14 03:20 | RADRPT ---
EXAM DATE/TIME: 06/14/2017 02:43 [facility] COMPARISON: No previous studies available for comparison. INDICATIONS : Nausea and vomiting with upper abdominal pain. MEDICAL HISTORY : Irritable bowel syndrome. Diverticulitis. Cardiovascular disease. SURGICAL HISTORY : Colon resection. Tubal ligation. section. Hysterectomy. Cholecystectomy. ENCOUNTER: Initial ACUITY: 1 day PAIN SCORE: 8/10 LOCATION: Bilateral upper abdomen. FINDINGS: A single erect view of the abdomen demonstrates the lower lungs to be clear. No evidence of free int raperitoneal gas. The visualized bowel loops are unremarkable. CONCLUSION: 1. No acute findings. Surgical clips right upper quadrant. Peter Pak MD on June 14, 2017 at 3:18 Board Certified Radiologist. This report was verified electronically.
== END 2017-06-14 03:41 | disposition home or self-care (01) ==
LOC: PHED 02:03
DX: R10.9 Unspecified abdominal pain (principal); E11.65 Type 2 diabetes mellitus with hyperglycemia; E11.43 Type 2 diabetes mellitus with diabetic autonomic (poly)neuropathy; K31.84 Gastroparesis; K21.9 Gastro-esophageal reflux disease without esophagitis; F12.90 Cannabis use, unspecified, uncomplicated
CPT/HCPCS: 74018; 80048; 83690; 85025; 96361; 96374; 96375; 99284; C9113; J2405; J7030

== ENCOUNTER 2017-07-04 04:27 | Emergency (ER) | payer OTHER ==
[~2017-07-04] VITALS: Ht 160 cm; Wt 71.4 kg
[2017-07-04 04:34] VITALS: BP 129/94; PULSE 92; RESP 18; TEMP 98.7; O2SAT 98
--- NOTE | 2017-07-04 04:59 | PD ---
HPI Chief Complaint: GI Complaint Time Seen by Provider: 04:53 Travel History International Travel<30 days: No Contact w/Intl Traveler<30days: No Traveled to known affect area: No History of Present Illness HPI 51-year-old female patient with history of gastroparesis, previous hemicolectomy , cholecystectomy, seen frequently for recurrent vomiting, presents to the ER today because the 2 AM she started having 10 out of 10 abdominal pains, nausea, vomiting, similar to previous complaints. She denies any diarrhea or other issues. She states it is the same thing that she has been here for in the past , states that her mom is trying to get her into the [facility] to see what is going on. She states that nobody has officially diagnosed her. She had tried to take her Zofran at 2 AM but it did not work. Modifying Factors: None Associated Signs & Symptoms: Nausea, vomiting, abdominal pain Risk Factors: Previous similar episodes, gastroparesis PFSH Past Medical History Blood Disorders: No Bipolar Disorder: Yes (MANIC) Anxiety: Yes Depression: Yes Cancer: No Cardiac Catheterization: Yes Cardiovascular Problems: Yes High Cholesterol: Yes Diabetes: Yes Patient Takes Glucophage: No Diminished Hearing: No Endocrine: Yes Gastrointestinal Disorders: Yes (DIVERTICULITIS, GASTROPERESIS) GERD: Yes Genitourinary: No Hepatitis: No Hiatal Hernia: No Hypertension: No Immune Disorder: No Implanted Vascular Access Dvce: No Musculoskeletal: No Neurologic: No Psychiatric: Yes (manic depressive d/o) Reproductive: No Respiratory: No Immunizations Current: Yes Thyroid Disease: No Influenza Vaccination: Yes ?: Unknown Menopausal: Yes : 8 Para: 3 Miscarriage: 3 : 2 Tubal Ligation: Yes Past Surgical History Abdominal Surgery: Yes ("1 FOOT OF BOWEL REMOVED DUE TO DIVERTICULITIS") Section: Yes (x2) Cholecystectomy: Yes Gynecologic Surgery: Yes (HYSTERECTOMY, TUBAL, C SECTION X 2) Hysterectomy: Yes Other Surgery: Yes (DIVERTICULI REPAIR EXPLORATORY SX, LEFT BREAST LUMP REMOVED ) Social History Alcohol Use: No Tobacco Use: No Substance Use: Yes (MARIJUANA EVERY DAY) Allergies-Medications (Allergen,Severity, Reaction): Coded Allergies: acetaminophen (Verified Allergy, Severe, Itching, 07/04/17) hydrocodone (Verified Allergy, Severe, ITCHING, 07/04/17) AND FAMILY OF CETS oxycodone (Verified Allergy, Severe, Itching, 07/04/17) prochlorperazine (Verified Allergy, Severe, Hallucinations, 07/04/17) propoxyphene (Verified Allergy, Severe, Itching, 07/04/17) Reported Meds & Prescriptions Reported Meds & Active Scripts Active Reported Zofran (Ondansetron HCl) 4 Mg Tab 4 Mg PO Q6HR PRN Nexium (Esomeprazole DR) 40 Mg Capdr 40 Mg PO BID Review of Systems Except as stated in HPI: all other systems reviewed are Neg Physical Exam Narrative GENERAL: Well-developed middle-age female patient currently in moderate distress. Awake and oriented 3. Cheerful. Anxious. SKIN: Focused skin assessment warm/dry. HEAD: Atraumatic. Normocephalic. EYES: Pupils equal and round. No scleral icterus. No injection or drainage. ENT: No nasal bleeding or discharge. Mucous membranes pink and moist. NECK: Trachea midline. No JVD. CARDIOVASCULAR: Regular rate and rhythm. No murmur appreciated. RESPIRATORY: No accessory muscle use. Clear to auscultation. Breath sounds equal bilaterally. GASTROINTESTINAL: Abdomen soft, diffuse abdominal tenderness without guarding or rebound, most tender in the epigastrium, nondistended. Hepatic and splenic margins not palpable. MUSCULOSKELETAL: No obvious deformities. No clubbing. No cyanosis. No edema. NEUROLOGICAL: Awake and alert. No obvious cranial nerve deficits. Motor grossly within normal limits. Normal speech. PSYCHIATRIC: Anxious mood and affect; insight and judgment normal. Data Data Last Documented VS Vital Signs Date Time Temp Pulse Resp B/P (MAP) Pulse Ox O2 Delivery O2 Flow Rate FiO2 07/04/17 06:57 89 16 160/78 (105) 100 Room Air 07/04/17 04:34 98.7 Orders Orders Complete Blood Count With Diff (07/04/17 04:49) Comprehensive Metabolic Panel (07/04/17 04:49) Lipase (07/04/17 04:49) Urinalysis - C+S If Indicated (07/04/17 04:49) Iv Access Insert/Monitor (07/04/17 04:49) Ecg Monitoring (07/04/17 04:49) Oximetry (07/04/17 04:49) Sodium Chloride 0.9% Flush (Ns Flush) (07/04/17 05:00) Sodium Chlor 0.9% 1000 Ml Inj (Ns 1000 M (07/04/17 05:00) Metoclopramide Inj (Reglan Inj) (07/04/17 05:00) Ketorolac Inj (Toradol Inj) (07/04/17 05:30) Diphenhydramine Inj (Benadryl Inj) (07/04/17 05:30) Abdomen, Flat & Upright (07/04/17 05:37) Ondansetron Inj (Zofran Inj) (07/04/17 06:45) Al-Mag Hy-Si 40-40-4 Mg/Ml Liq (Mag-Al P (07/04/17 07:00) Lidocaine 2% Viscous (Xylocaine 2% Visco (07/04/17 07:00) Labs Laboratory Tests Test 07/04/17 04:50 07/04/17 06:33 White Blood Count 15.3 TH/MM3 Red Blood Count 5.27 MIL/MM3 Hemoglobin 15.0 GM/DL Hematocrit 45.8 % Mean Corpuscular Volume 86.9 FL Mean Corpuscular Hemoglobin 28.5 PG Mean Corpuscular Hemoglobin Concent 32.8 % Red Cell Distribution Width 12.5 % Platelet Count 323 TH/MM3 Mean Platelet Volume 8.6 FL Neutrophils (%) (Auto) 75.5 % Lymphocytes (%) (Auto) 19.0 % Monocytes (%) (Auto) 2.8 % Eosinophils (%) (Auto) 1.9 % Basophils (%) (Auto) 0.8 % Neutrophils # (Auto) 11.6 TH/MM3 Lymphocytes # (Auto) 2.9 TH/MM3 Monocytes # (Auto) 0.4 TH/MM3 Eosinophils # (Auto) 0.3 TH/MM3 Basophils # (Auto) 0.1 TH/MM3 CBC Comment AUTO DIFF Differential Comment AUTO DIFF CONFIRMED Platelet Estimate NORMAL Platelet Morphology Comment NORMAL Red Cell Morphology Comment NORMAL Blood Urea Nitrogen 17 MG/DL Creatinine 1.10 MG/DL Random Glucose 263 MG/DL Total Protein 7.8 GM/DL Albumin 3.9 GM/DL Calcium Level 9.6 MG/DL Alkaline Phosphatase 97 U/L Aspartate Amino Transf (AST/SGOT) 14 U/L Alanine Aminotransferase (ALT/SGPT) 23 U/L Total Bilirubin 0.3 MG/DL Sodium Level 138 MEQ/L Potassium Level 4.0 MEQ/L Chloride Level 107 MEQ/L Carbon Dioxide Level 20.8 MEQ/L Anion Gap 10 MEQ/L Estimat Glomerular Filtration Rate 53 ML/MIN Lipase 203 U/L Urine Color YELLOW Urine Turbidity CLEAR Urine pH 6.0 Urine Specific [place] 1.025 Urine Protein NEG mg/dL Urine Glucose (UA) 500 mg/dL Urine Ketones NEG mg/dL Urine Occult Blood NEG Urine Nitrite NEG Urine Bilirubin NEG Urine Urobilinogen 0.2 MG/DL Urine Leukocyte Esterase NEG Urine RBC 0-2 /hpf Urine WBC 0-2 /hpf Urine Squamous Epithelial Cells 0-5 /hpf Urine Bacteria NONE /hpf Microscopic Urinalysis Comment CULT NOT INDICATED MDM Medical Decision Making Medical Screen Exam Complete: Yes Emergency Medical Condition: Yes Medical Record Reviewed: Yes Interpretation(s) Laboratory Tests Test 07/04/17 04:50 07/04/17 06:33 White Blood Count 15.3 TH/MM3 (4.0-11.0) Neutrophils (%) (Auto) 75.5 % (16.0-70.0) Neutrophils # (Auto) 11.6 TH/MM3 (1.8-7.7) Creatinine 1.10 MG/DL (0.50-1.00) Random Glucose 263 MG/DL (74-106) Aspartate Amino Transf (AST/SGOT) 14 U/L (15-37) Carbon Dioxide Level 20.8 MEQ/L (21.0-32.0) Estimat Glomerular Filtration Rate 53 ML/MIN (>89) Urine Glucose (UA) 500 mg/dL (NEG) Differential Diagnosis Gastritis versus gastroenteritis versus gastroparesis versus dehydration versus cyclic vomiting Narrative Course X-rays did not show any signs of acute obstruction or free air. She was initially given IV fluids, Reglan, and Benadryl and on reevaluation at 6:30 AM, she is resting comfortably, but then when she got up to go to the bathroom became nauseous again and states that she feels like there is some stomach burning, wanted to take some Nexium. I gave her a GI cocktail as well as Zofran and symptoms seems to subside. At this point, I have discussed findings with the patient and have offered to admit her as an observation versus release with outpatient follow-up to her primary care physician. She states that she wants to go home. She is to return for any worsening in symptoms as necessary. The plan has been discussed with her and she states understanding. Diagnosis Primary Impression: Nausea and vomiting Med/Other Pt SpecificInfo: Prescription(s) given Scripts Metoclopramide (Reglan) 10 Mg Tab 10 MG PO QID Y for NAUSEA OR VOMITING, #15 TAB 0 Refills Prov: Enmanuel Sam MD 07/04/17 Disposition: 01 DISCHARGE HOME Condition: Stable Enmanuel Sam MD July 04, 2017 04:59
[2017-07-04] MEDS ORDERED: SODIUM CHLOR 0.9% 1000 ML INJ 1,000 ML IV ONE (05:00)
[2017-07-04] MEDS ORDERED: METOCLOPRAMIDE HCL 10 MG/2 ML VIAL IV PUSH ONE (05:00)
[2017-07-04] MEDS ORDERED: SODIUM CHLORIDE 0.9% FLUSH 10 ML FLUSH IV FLUSH PRN (05:00)
[2017-07-04 05:01] LABS: AUTOMATED NEUTROPHIL # 11.6 TH/MM3 (1.8-7.7); BASOPHIL # 0.1 TH/MM3 (0-0.2); BASOPHIL % 0.8 % (0.0-2.0); EOSINOPHIL # 0.3 TH/MM3 (0-0.4); EOSINOPHIL % 1.9 % (0.0-4.0); HEMATOCRIT 45.8 % (35.0-46.0); LYMPHOCYTE # 2.9 TH/MM3 (1.0-4.8); MEAN CELL VOLUME 86.9 FL (80.0-100.0); MEAN CORPUSCULAR HEMOGLOBIN 28.5 PG (27.0-34.0); MEAN CORPUSCULAR HGB CONC 32.8 % (32.0-36.0); MEAN PLATELET VOLUME 8.6 FL (7.0-11.0); MONO % 2.8 % (0.0-8.0); MONOCYTE # 0.4 TH/MM3 (0-0.9); NEUT % 75.5 % (16.0-70.0); PLATELET COUNT 323 TH/MM3 (150-450); RED BLOOD COUNT 5.27 MIL/MM3 (4.00-5.30); RED CELL DISTRIBUTION WIDTH 12.5 % (11.6-17.2); WHITE BLOOD COUNT 15.3 TH/MM3 (4.0-11.0)
[2017-07-04 05:10] LABS: CHLORIDE 107 MEQ/L (98-107); SODIUM (NA) 138 MEQ/L (136-145)
[2017-07-04 05:13] LABS: CALCIUM 9.6 MG/DL (8.5-10.1)
[2017-07-04 05:14] LABS: ALBUMIN 3.9 GM/DL (3.4-5.0); BICARBONATE 20.8 MEQ/L (21.0-32.0); BLOOD UREA NITROGEN 17 MG/DL (7-18); GLUCOSE,RANDOM 263 MG/DL (74-106)
[2017-07-04 05:17] LABS: ALT (GPT) 23 U/L (10-53); AST (GOT) 14 U/L (15-37); GLOMERULAR FILTRATION RATE 53 ML/MIN (>89)
[2017-07-04 05:18] LABS: TOTAL BILIRUBIN ADULT 0.3 MG/DL (0.2-1.0); TOTAL PROTEIN 7.8 GM/DL (6.4-8.2)
[2017-07-04 05:20] LABS: ALKALINE PHOSPHATASE 97 U/L (45-117)
[2017-07-04 05:25] VITALS: O2SAT 99
[2017-07-04] MEDS ORDERED: diphenhydrAMINE HCL 50 MG/ML VIAL IV PUSH ONE (05:30)
[2017-07-04] MEDS ORDERED: KETOROLAC TROMETHAMINE 30 MG/ML (IVP) VIAL IV PUSH ONE (05:30)
--- NOTE | 2017-07-04 06:14 | RADRPT ---
EXAM DATE/TIME: 07/04/2017 05:48 [facility] COMPARISON: ABDOMEN FLAT & UPRIGHT, April 04, 2017, 4:26. INDICATIONS : Vomiting, epigastric pain. MEDICAL HISTORY : Irritable bowel syndrome. Diverticulitis. Cardiovascular disease. SURGICAL HISTORY : Colon resection. Tubal ligation. section. Hysterectomy. Cholecystectomy. ENCOUNTER: Initial ACUITY: 1 day PAIN SCORE: 10/10 LOCATION: abdomen, epigastric. FINDINGS: Supine and upright views of the abdomen were performed. The abdominal bowel gas pattern is normal. No air fluid levels are seen. No abnormal masses, calcifications, or organomegaly is seen. The visu alized lower lungs are clear. No evidence of free intraperitoneal gas. The osseous structures are u nremarkable. CONCLUSION: 1. No acute findings. Cholecystectomy clips right upper quadrant. Bilateral tubal ligation clips. Peter Pak MD on July 04, 2017 at 6:10 Board Certified Radiologist. This report was verified electronically.
[2017-07-04 06:25] VITALS: BP 160/78; PULSE 77; RESP 16; O2SAT 99
[2017-07-04 06:36] LABS: BILIRUBIN, URINE NEG (NEG); BLOOD, URINE NEG (NEG); GLUCOSE,URINE 500 mg/dL (NEG); KETONE, URINE NEG (NEG); NITRITE,URINE NEG (NEG); URINE COLOR YELLOW (YELLW/STRAW); URINE LEUKOCYTE ESTERASE NEG (NEG)
[2017-07-04 06:45] LABS: RBC, URINE 0-2 /hpf (0-3); WBC, URINE 0-2 /hpf (0-5)
[2017-07-04] MEDS ORDERED: ONDANSETRON HCL 4 MG/2 ML VIAL IV PUSH ONE (06:45)
[2017-07-04 06:46] LABS: SQUAMOUS EPITHELIAL CELL URINE 0-5 /hpf (0-5)
[2017-07-04 06:57] VITALS: BP 160/78; PULSE 89; RESP 16; O2SAT 100
[2017-07-04] MEDS ORDERED: LIDOCAINE VISCOUS 2% SOLN 15 ML UDC SWISH-SWAL ONE (07:00)
[2017-07-04] MEDS ORDERED: ALUMINUM/MAGNESIUM/SIMETH 30 ML CUP PO ONE (07:00)
[2017-07-04] MEDS ORDERED: REGL10TA5 PO (07:02)
== END 2017-07-04 07:22 | disposition home or self-care (01) ==
LOC: PHED 04:27
DX: R11.2 Nausea with vomiting, unspecified (principal); F31.9 Bipolar disorder, unspecified; F41.9 Anxiety disorder, unspecified; E78.00 Pure hypercholesterolemia, unspecified; E11.9 Type 2 diabetes mellitus without complications; K21.9 Gastro-esophageal reflux disease without esophagitis; F12.90 Cannabis use, unspecified, uncomplicated; Z87.19 Personal history of other diseases of the digestive system; Z88.6 Allergy status to analgesic agent
CPT/HCPCS: 74019; 80053; 81001; 83690; 85025; 96361; 96374; 96375; 99284; J1200; J1885; J2405; J2765; J7030

== ENCOUNTER 2017-07-11 18:39 | Emergency (ER) | payer OTHER ==
[~2017-07-11] VITALS: Ht 160 cm; Wt 71.0 kg
[~2017-07-11 18:39] MED LIST changes: -HYDR50CA PO; +REGL10TA5 PO
[2017-07-11 19:00] VITALS: BP 175/84; PULSE 92; RESP 18; TEMP 98.3
--- NOTE | 2017-07-11 19:27 | PD ---
HPI Chief Complaint: Cold / Flu Symptoms Time Seen by Provider: 19:08 Travel History International Travel<30 days: No Contact w/Intl Traveler<30days: No Traveled to known affect area: No History of Present Illness HPI The patient is a 51-year-old female who presents to the emergency department for cough and cold symptoms that started this morning. The patient states she developed diffuse body aches of the low back, chest wall, and extremities this morning associated with subjective fever at home. The patient did take Motrin approximately 530 but subsequently had nausea and vomiting. She also notes a few episodes of diarrhea and a dry nonproductive cough. The patient thinks she has influenza, denies any sick contacts at home. She did not receive an influenza vaccination this year. She denies any abdominal pain, dysuria, frequency, or urgency. She denies any sore throat, but does note facial congestion and mild headache. Symptoms are moderate. There are no current alleviating or exacerbating factors. PFSH Past Medical History Blood Disorders: No Bipolar Disorder: Yes (MANIC) Anxiety: Yes Depression: Yes Cancer: No Cardiac Catheterization: Yes Cardiovascular Problems: Yes High Cholesterol: Yes Diabetes: Yes Diminished Hearing: No Endocrine: Yes Gastrointestinal Disorders: Yes (DIVERTICULITIS, GASTROPERESIS) GERD: Yes Genitourinary: No Hepatitis: No Hiatal Hernia: No Hypertension: No Immune Disorder: No Implanted Vascular Access Dvce: No Musculoskeletal: No Neurologic: No Psychiatric: Yes (manic depressive d/o) Reproductive: No Respiratory: No Immunizations Current: Yes Thyroid Disease: No Menopausal: Yes : 8 Para: 3 Miscarriage: 3 : 2 Tubal Ligation: Yes Past Surgical History Abdominal Surgery: Yes ("1 FOOT OF BOWEL REMOVED DUE TO DIVERTICULITIS") Section: Yes (x2) Cholecystectomy: Yes Gynecologic Surgery: Yes (HYSTERECTOMY, TUBAL, C SECTION X 2) Hysterectomy: Yes Other Surgery: Yes (DIVERTICULI REPAIR EXPLORATORY SX, LEFT BREAST LUMP REMOVED ) Social History Alcohol Use: No Tobacco Use: No Substance Use: Yes (MARIJUANA EVERY DAY) Allergies-Medications (Allergen,Severity, Reaction): Coded Allergies: acetaminophen (Verified Allergy, Severe, Itching, 07/11/17) hydrocodone (Verified Allergy, Severe, ITCHING, 07/11/17) AND FAMILY OF CETS oxycodone (Verified Allergy, Severe, Itching, 07/11/17) prochlorperazine (Verified Allergy, Severe, Hallucinations, 07/11/17) propoxyphene (Verified Allergy, Severe, Itching, 07/11/17) Reported Meds & Prescriptions Reported Meds & Active Scripts Active Reglan (Metoclopramide HCl) 10 Mg Tab 10 Mg PO QID PRN Reported Zofran (Ondansetron HCl) 4 Mg Tab 4 Mg PO Q6HR PRN Nexium (Esomeprazole DR) 40 Mg Capdr 40 Mg PO BID Review of Systems Except as stated in HPI: all other systems reviewed are Neg General / Constitutional: Positive: Fever, Chills HENT: Positive: Headaches, Congestion, No: Sore Throat Cardiovascular: Positive: Chest Pain or Discomfort (Congestion) Respiratory: Positive: Cough, No: Shortness of Breath Gastrointestinal: Positive: Nausea, Vomiting, Diarrhea, No: Abdominal Pain Genitourinary: No: Dysuria Musculoskeletal: Positive: Myalgias Skin: No Rash Physical Exam Narrative GENERAL: Awake, alert, pleasant 51-year-old female who appears her stated age and is in no acute respiratory distress. SKIN: Focused skin assessment warm/dry. HEAD: Atraumatic. Normocephalic. EYES: Pupils equal and round. No scleral icterus. No injection or drainage. ENT: No nasal bleeding or discharge. Cobblestoning posterior pharynx but no exudate. NECK: Trachea midline. No JVD. CARDIOVASCULAR: Regular rate and rhythm. No murmur appreciated. Heart rate in the 90s. RESPIRATORY: No accessory muscle use. Clear to auscultation. Breath sounds equal bilaterally. GASTROINTESTINAL: Abdomen soft, non-tender, nondistended. No rebound tenderness. Back: No CVA tenderness. MUSCULOSKELETAL: No obvious deformities. No clubbing. No cyanosis. No edema. NEUROLOGICAL: Awake and alert. No obvious cranial nerve deficits. Motor grossly within normal limits. Normal speech. PSYCHIATRIC: Appropriate mood and affect; insight and judgment normal. Data Data Last Documented VS Vital Signs Date Time Temp Pulse Resp B/P (MAP) Pulse Ox O2 Delivery O2 Flow Rate FiO2 07/11/17 19:00 98.3 92 18 175/84 (114) Orders Orders Sepsis Workup Initiated (07/11/17 ) Complete Blood Count With Diff (07/11/17 19:19) Comprehensive Metabolic Panel (07/11/17 19:19) Lactic Acid Sepsis Protocol (07/11/17 19:19) Urinalysis - C+S If Indicated (07/11/17 19:19) Influenzae A/B Antigen (07/11/17 19:19) Chest, Single Ap (07/11/17 19:19) Blood Glucose (07/11/17 19:19) Ecg Monitoring (07/11/17 19:19) Iv Access Insert/Monitor (07/11/17 19:19) Oximetry (07/11/17 19:19) Oxygen Administration (07/11/17 19:19) Sodium Chlor 0.9% 1000 Ml Inj (Ns 1000 M (07/11/17 19:30) Ondansetron Odt (Zofran Odt) (07/11/17 19:30) Ketorolac Inj (Toradol Inj) (07/11/17 19:30) Labs Laboratory Tests Test 07/11/17 20:00 White Blood Count 9.9 TH/MM3 Red Blood Count 4.88 MIL/MM3 Hemoglobin 14.2 GM/DL Hematocrit 42.3 % Mean Corpuscular Volume 86.8 FL Mean Corpuscular Hemoglobin 29.2 PG Mean Corpuscular Hemoglobin Concent 33.6 % Red Cell Distribution Width 12.2 % Platelet Count 263 TH/MM3 Mean Platelet Volume 8.5 FL Neutrophils (%) (Auto) 71.9 % Lymphocytes (%) (Auto) 21.4 % Monocytes (%) (Auto) 3.3 % Eosinophils (%) (Auto) 2.3 % Basophils (%) (Auto) 1.1 % Neutrophils # (Auto) 7.2 TH/MM3 Lymphocytes # (Auto) 2.1 TH/MM3 Monocytes # (Auto) 0.3 TH/MM3 Eosinophils # (Auto) 0.2 TH/MM3 Basophils # (Auto) 0.1 TH/MM3 CBC Comment DIFF FINAL Differential Comment Urine Color YELLOW Urine Turbidity CLEAR Urine pH 7.5 Urine Specific [place] 1.015 Urine Protein NEG mg/dL Urine Glucose (UA) NEG mg/dL Urine Ketones NEG mg/dL Urine Occult Blood NEG Urine Nitrite NEG Urine Bilirubin NEG Urine Urobilinogen 0.2 MG/DL Urine Leukocyte Esterase NEG Urine RBC 0-2 /hpf Urine WBC 3-5 /hpf Urine Squamous Epithelial Cells 6-8 /hpf Urine Bacteria NONE /hpf Microscopic Urinalysis Comment CULT NOT INDICATED Blood Urea Nitrogen 12 MG/DL Creatinine 0.90 MG/DL Random Glucose 182 MG/DL Total Protein 7.8 GM/DL Albumin 4.2 GM/DL Calcium Level 9.6 MG/DL Alkaline Phosphatase 91 U/L Aspartate Amino Transf (AST/SGOT) 13 U/L Alanine Aminotransferase (ALT/SGPT) 20 U/L Total Bilirubin 0.4 MG/DL Sodium Level 139 MEQ/L Potassium Level 3.7 MEQ/L Chloride Level 106 MEQ/L Carbon Dioxide Level 25.9 MEQ/L Anion Gap 7 MEQ/L Estimat Glomerular Filtration Rate 66 ML/MIN Lactic Acid Level 1.3 mmol/L MDM Medical Decision Making Medical Screen Exam Complete: Yes Emergency Medical Condition: Yes Medical Record Reviewed: Yes Interpretation(s) Last Impressions Chest X-Ray 07/11/171918 Signed Impressions: Service Date/Time: Tuesday, July 11, 2017 19:25 - CONCLUSION: Normal examination. David Marie Jr., MD Date/Time Source Procedure Growth Status 07/11/17 19:43 Nasal Aspirate Influenza Types A,B Antigen (ANTHONY) - Final NEGATIVE FOR FLU A AND B ANTIGEN.... Complete Laboratory Tests Test 07/11/17 20:00 White Blood Count 9.9 TH/MM3 Red Blood Count 4.88 MIL/MM3 Hemoglobin 14.2 GM/DL Hematocrit 42.3 % Mean Corpuscular Volume 86.8 FL Mean Corpuscular Hemoglobin 29.2 PG Mean Corpuscular Hemoglobin Concent 33.6 % Red Cell Distribution Width 12.2 % Platelet Count 263 TH/MM3 Mean Platelet Volume 8.5 FL Neutrophils (%) (Auto) 71.9 % Lymphocytes (%) (Auto) 21.4 % Monocytes (%) (Auto) 3.3 % Eosinophils (%) (Auto) 2.3 % Basophils (%) (Auto) 1.1 % Neutrophils # (Auto) 7.2 TH/MM3 Lymphocytes # (Auto) 2.1 TH/MM3 Monocytes # (Auto) 0.3 TH/MM3 Eosinophils # (Auto) 0.2 TH/MM3 Basophils # (Auto) 0.1 TH/MM3 CBC Comment DIFF FINAL Differential Comment Urine Color YELLOW Urine Turbidity CLEAR Urine pH 7.5 Urine Specific [place] 1.015 Urine Protein NEG mg/dL Urine Glucose (UA) NEG mg/dL Urine Ketones NEG mg/dL Urine Occult Blood NEG Urine Nitrite NEG Urine Bilirubin NEG Urine Urobilinogen 0.2 MG/DL Urine Leukocyte Esterase NEG Urine RBC 0-2 /hpf Urine WBC 3-5 /hpf Urine Squamous Epithelial Cells 6-8 /hpf Urine Bacteria NONE /hpf Microscopic Urinalysis Comment CULT NOT INDICATED Blood Urea Nitrogen 12 MG/DL Creatinine 0.90 MG/DL Random Glucose 182 MG/DL Total Protein 7.8 GM/DL Albumin 4.2 GM/DL Calcium Level 9.6 MG/DL Alkaline Phosphatase 91 U/L Aspartate Amino Transf (AST/SGOT) 13 U/L Alanine Aminotransferase (ALT/SGPT) 20 U/L Total Bilirubin 0.4 MG/DL Sodium Level 139 MEQ/L Potassium Level 3.7 MEQ/L Chloride Level 106 MEQ/L Carbon Dioxide Level 25.9 MEQ/L Anion Gap 7 MEQ/L Estimat Glomerular Filtration Rate 66 ML/MIN Lactic Acid Level 1.3 mmol/L Differential Diagnosis Differential diagnosis includes influenza, viral syndrome, gastroenteritis, bronchitis, pneumonia, pyelonephritis, dehydration. Narrative Course IV was established, labs are drawn and sent, and the patient was placed on cardiac telemetry monitoring and continuous pulse oximetry monitoring. The patient was administered Zofran, IV fluids, and Toradol. UA was sent to lab. Chest x-ray was obtained. Influenza screen was sent to lab. Chest x-ray was negative. Influenza screen was negative. Patient's white count is unremarkable. UA is negative. Lactic acid is normal at 1.3. CMP is unremarkable except for mildly elevated glucose. Patient appears to have a viral syndrome with secondary nausea, vomiting, diarrhea, and myalgias. Symptomatic care as needed, she will be provided a copy of her labs, x-ray results, and UA results at discharge. She is advised to follow-up with her primary physician. Diagnosis Primary Impression: Viral syndrome Additional Impressions: Nausea vomiting and diarrhea Myalgia Patient Instructions: General Instructions Additional Instructions: Please provide the patient a copy of her chest x-ray results, influenza results , UA results, and lab results at discharge. Plenty of fluids to stay hydrated. Follow-up with your primary physician. Disposition: 01 DISCHARGE HOME Condition: Stable Franco Valdez MD July 11, 2017 19:27
[2017-07-11] MEDS ORDERED: ONDANSETRON ODT 4 MG TAB PO ONE (19:30)
[2017-07-11] MEDS ORDERED: KETOROLAC TROMETHAMINE 30 MG/ML (IVP) VIAL IV PUSH ONE (19:30)
[2017-07-11] MEDS ORDERED: SODIUM CHLOR 0.9% 1000 ML INJ 1,000 ML IV ONE (19:30)
--- NOTE | 2017-07-11 19:46 | RADRPT ---
EXAM DATE/TIME: 07/11/2017 19:25 [facility] COMPARISON: No previous studies available for comparison. INDICATIONS : Fever, cough. MEDICAL HISTORY : Gastroesophageal reflux disease. Diabetes mellitus type II. SURGICAL HISTORY : None. ENCOUNTER: Initial ACUITY: 1 day PAIN SCORE: 0/10 LOCATION: Bilateral chest FINDINGS: A single view of the chest demonstrates the lungs to be symmetrically aerated without evidence of mas s, infiltrate or effusion. The cardiomediastinal contours are unremarkable. Osseous structures are intact. CONCLUSION: Normal examination. David Marie Jr., MD on July 11, 2017 at 19:44 Board Certified Radiologist. This report was verified electronically.
[2017-07-11 20:08] LABS: AUTOMATED NEUTROPHIL # 7.2 TH/MM3 (1.8-7.7); BASOPHIL # 0.1 TH/MM3 (0-0.2); BASOPHIL % 1.1 % (0.0-2.0); BILIRUBIN, URINE NEG (NEG); BLOOD, URINE NEG (NEG); EOSINOPHIL # 0.2 TH/MM3 (0-0.4); EOSINOPHIL % 2.3 % (0.0-4.0); GLUCOSE,URINE NEG (NEG); HEMATOCRIT 42.3 % (35.0-46.0); HEMOGLOBIN 14.2 GM/DL (11.6-15.3); KETONE, URINE NEG (NEG); LYMPH % 21.4 % (9.0-44.0); LYMPHOCYTE # 2.1 TH/MM3 (1.0-4.8); MEAN CELL VOLUME 86.8 FL (80.0-100.0); MEAN CORPUSCULAR HEMOGLOBIN 29.2 PG (27.0-34.0); MEAN CORPUSCULAR HGB CONC 33.6 % (32.0-36.0); MEAN PLATELET VOLUME 8.5 FL (7.0-11.0); MONO % 3.3 % (0.0-8.0); MONOCYTE # 0.3 TH/MM3 (0-0.9); NEUT % 71.9 % (16.0-70.0); NITRITE,URINE NEG (NEG); PH, URINE 7.5 (5.0-8.5); PLATELET COUNT 263 TH/MM3 (150-450); RED BLOOD COUNT 4.88 MIL/MM3 (4.00-5.30); RED CELL DISTRIBUTION WIDTH 12.2 % (11.6-17.2); URINE COLOR YELLOW (YELLW/STRAW); URINE LEUKOCYTE ESTERASE NEG (NEG); WHITE BLOOD COUNT 9.9 TH/MM3 (4.0-11.0)
[2017-07-11 20:17] LABS: RBC, URINE 0-2 /hpf (0-3)
[2017-07-11 20:18] LABS: CHLORIDE 106 MEQ/L (98-107); SODIUM (NA) 139 MEQ/L (136-145)
[2017-07-11 20:21] LABS: CALCIUM 9.6 MG/DL (8.5-10.1)
[2017-07-11 20:22] LABS: ALBUMIN 4.2 GM/DL (3.4-5.0); BICARBONATE 25.9 MEQ/L (21.0-32.0); BLOOD UREA NITROGEN 12 MG/DL (7-18); GLUCOSE,RANDOM 182 MG/DL (74-106)
[2017-07-11 20:25] LABS: ALT (GPT) 20 U/L (10-53); AST (GOT) 13 U/L (15-37); GLOMERULAR FILTRATION RATE 66 ML/MIN (>89)
[2017-07-11 20:26] LABS: TOTAL BILIRUBIN ADULT 0.4 MG/DL (0.2-1.0); TOTAL PROTEIN 7.8 GM/DL (6.4-8.2)
[2017-07-11 20:28] LABS: ALKALINE PHOSPHATASE 91 U/L (45-117)
[2017-07-11 20:31] VITALS: RESP 18; O2SAT 99
[2017-07-11 20:56] VITALS: RESP 17
[2017-07-11 21:28] VITALS: BP 174/79
== END 2017-07-11 21:31 | disposition home or self-care (01) ==
LOC: PHED 18:39
DX: B34.9 Viral infection, unspecified (principal); R11.2 Nausea with vomiting, unspecified; R19.7 Diarrhea, unspecified; M79.1 Myalgia; E11.9 Type 2 diabetes mellitus without complications; K21.9 Gastro-esophageal reflux disease without esophagitis; F12.90 Cannabis use, unspecified, uncomplicated
CPT/HCPCS: 71045; 80053; 81001; 83605; 85025; 87804; 96361; 96374; 99284; J1885; J7030

== ENCOUNTER 2017-07-20 07:15 | Emergency (ER) | payer OTHER ==
[~2017-07-20] VITALS: Ht 160 cm; Wt 71.0 kg
[2017-07-20 07:28] VITALS: BP 178/72; PULSE 120; RESP 16; TEMP 98.3; O2SAT 97
--- NOTE | 2017-07-20 07:42 | PD ---
HPI Chief Complaint: Abdominal Pain Time Seen by Provider: 07:41 Travel History International Travel<30 days: No Contact w/Intl Traveler<30days: No Traveled to known affect area: No History of Present Illness HPI 51-year-old female came in complaining of abdominal pain and saying that she thinks her diverticulitis is acting out. She was very tearful and crying. She says it started last night and has continued since today. Vital signs show tachycardia in triage but patient has also been very anxious and emotional. No aggravating or relieving factors. Seems like pain is constantly there. No radiation of the pain. She points to her left lower quadrant. She has been nauseous but no vomiting. [facility] Past Medical History Narrative Medical List of her past medical, surgical, social and family history is reviewed from the nursing note. Blood Disorders: No Bipolar Disorder: Yes (MANIC) Anxiety: Yes Depression: Yes Cancer: No Cardiac Catheterization: Yes Cardiovascular Problems: Yes High Cholesterol: Yes Diabetes: Yes Diminished Hearing: No Endocrine: Yes Gastrointestinal Disorders: Yes (DIVERTICULITIS, GASTROPARESIS) GERD: Yes Genitourinary: No Hepatitis: No Hiatal Hernia: No Hypertension: No Immune Disorder: No Implanted Vascular Access Dvce: No Musculoskeletal: No Neurologic: No Psychiatric: Yes (manic depressive d/o) Reproductive: No Respiratory: No Immunizations Current: Yes Thyroid Disease: No ?: Not Menopausal: Yes : 8 Para: 3 Miscarriage: 3 : 2 Tubal Ligation: Yes Past Surgical History Abdominal Surgery: Yes ("1 FOOT OF BOWEL REMOVED DUE TO DIVERTICULITIS") Section: Yes (x2) Cholecystectomy: Yes Gynecologic Surgery: Yes (HYSTERECTOMY, TUBAL, C SECTION X 2) Hysterectomy: Yes Other Surgery: Yes (DIVERTICULI REPAIR EXPLORATORY SX, LEFT BREAST LUMP REMOVED ) Social History Alcohol Use: No Tobacco Use: No Substance Use: No Allergies-Medications (Allergen,Severity, Reaction): Coded Allergies: acetaminophen (Verified Allergy, Severe, Itching, 07/21/17) hydrocodone (Verified Allergy, Severe, ITCHING, 07/21/17) AND FAMILY OF CETS oxycodone (Verified Allergy, Severe, Itching, 07/21/17) prochlorperazine (Verified Allergy, Severe, Hallucinations, 07/21/17) propoxyphene (Verified Allergy, Severe, Itching, 07/21/17) Comments List of her allergies reviewed from the nursing note. Reported Meds & Prescriptions Reported Meds & Active Scripts Active Lisinopril 10 Mg Tab 10 Mg PO DAILY Bentyl (Dicyclomine HCl) 10 Mg Cap 10 Mg PO TID PRN Reglan (Metoclopramide HCl) 10 Mg Tab 10 Mg PO QID PRN Reported Vistaril (Hydroxyzine Pamoate) 25 Mg Cap 25 Mg PO HS Vistaril (Hydroxyzine Pamoate) 25 Mg Cap 25 Mg PO BID Nexium (Esomeprazole DR) 40 Mg Capdr 40 Mg PO BID Zofran (Ondansetron HCl) 4 Mg Tab 4 Mg PO Q8HR PRN Narrative Medication List of her home medications reviewed from the nursing note. Review of Systems Except as stated in HPI: all other systems reviewed are Neg Gastrointestinal: Positive: Nausea, Abdominal Pain Physical Exam Narrative GENERAL: Awake, alert, anxious, moderate distress SKIN: Focused skin assessment warm/dry. HEAD: Atraumatic. Normocephalic. EYES: Pupils equal and round. No scleral icterus. No injection or drainage. ENT: No nasal bleeding or discharge. Mucous membranes pink and moist. NECK: Trachea midline. No JVD. CARDIOVASCULAR: Regular rate and rhythm. No murmur appreciated. RESPIRATORY: No accessory muscle use. Clear to auscultation. Breath sounds equal bilaterally. GASTROINTESTINAL: Abdomen soft, non-tender, nondistended. Hepatic and splenic margins not palpable. MUSCULOSKELETAL: No obvious deformities. No clubbing. No cyanosis. No edema. NEUROLOGICAL: Awake and alert. No obvious cranial nerve deficits. Motor grossly within normal limits. Normal speech. PSYCHIATRIC: Appropriate mood and affect; insight and judgment normal. Data Data Last Documented VS Vital Signs Date Time Temp Pulse Resp B/P (MAP) Pulse Ox O2 Delivery O2 Flow Rate FiO2 07/20/17 09:36 99 16 176/85 (115) 99 07/20/17 07:28 98.3 Orders Orders Complete Blood Count With Diff (07/20/17 07:43) Comprehensive Metabolic Panel (07/20/17 07:43) Lipase (07/20/17 07:43) Ct Abd/Pel W/O Iv Contrast (07/20/17 07:43) Iv Access Insert/Monitor (07/20/17 07:43) Ecg Monitoring (07/20/17 07:43) Oximetry (07/20/17 07:43) Sodium Chlor 0.9% 1000 Ml Inj (Ns 1000 M (07/20/17 07:43) Sodium Chloride 0.9% Flush (Ns Flush) (07/20/17 07:45) Ketorolac Inj (Toradol Inj) (07/20/17 07:45) Ketorolac Inj (Toradol Inj) (07/20/17 08:00) Ed Discharge Order (07/20/17 09:26) Labs Laboratory Tests Test 07/20/17 08:35 White Blood Count 12.2 TH/MM3 Red Blood Count 5.13 MIL/MM3 Hemoglobin 15.6 GM/DL Hematocrit 44.7 % Mean Corpuscular Volume 87.1 FL Mean Corpuscular Hemoglobin 30.5 PG Mean Corpuscular Hemoglobin Concent 35.0 % Red Cell Distribution Width 13.2 % Platelet Count 257 TH/MM3 Mean Platelet Volume 8.6 FL Neutrophils (%) (Auto) 84.7 % Lymphocytes (%) (Auto) 8.6 % Monocytes (%) (Auto) 3.5 % Eosinophils (%) (Auto) 0.6 % Basophils (%) (Auto) 2.6 % Neutrophils # (Auto) 10.4 TH/MM3 Lymphocytes # (Auto) 1.0 TH/MM3 Monocytes # (Auto) 0.4 TH/MM3 Eosinophils # (Auto) 0.1 TH/MM3 Basophils # (Auto) 0.3 TH/MM3 CBC Comment DIFF FINAL Differential Comment Blood Urea Nitrogen 12 MG/DL Creatinine 0.97 MG/DL Random Glucose 246 MG/DL Total Protein 7.8 GM/DL Albumin 4.0 GM/DL Calcium Level 9.3 MG/DL Alkaline Phosphatase 95 U/L Aspartate Amino Transf (AST/SGOT) 35 U/L Alanine Aminotransferase (ALT/SGPT) 43 U/L Total Bilirubin 0.4 MG/DL Sodium Level 138 MEQ/L Potassium Level 4.1 MEQ/L Chloride Level 106 MEQ/L Carbon Dioxide Level 24.2 MEQ/L Anion Gap 8 MEQ/L Estimat Glomerular Filtration Rate 61 ML/MIN Lipase 165 U/L MDM Medical Decision Making Medical Screen Exam Complete: Yes Emergency Medical Condition: Yes Medical Record Reviewed: Yes Differential Diagnosis Acute diverticulitis, small bowel obstruction, abdominal pain NOS Narrative Course 9:28 AM blood test results are back. Patient had lax mild leukocytosis with left shift. Chemistry was within normal limit. She has not given a UA yet. Patient was medicated for pain. CT scan result is back and shows mostly nonspecific finding with no acute issues. I will discharge her home. Procedures EKG Prior to Arrival: No Diagnosis Primary Impression: Abdominal pain Qualified Codes: R10.84 - Generalized abdominal pain Referrals: [facility] Additional Instructions: Follow-up with your primary care. If you do not have a primary care physician in follow-up with the walk-in clinic whose address has been given to you. Take Motrin/Tylenol/Advil/ibuprofen for the pain which is available [id number]. Med/Other Pt SpecificInfo: Prescription(s) given Scripts Dicyclomine (Bentyl) 10 Mg Cap 10 MG PO TID Y for Bowel Management, #10 CAP 0 Refills Prov: Loy Tomlinson MD 07/20/17 Disposition: 01 DISCHARGE HOME Condition: Stable Loy Tomlinson MD July 20, 2017 07:42
[2017-07-20] MEDS ORDERED: SODIUM CHLOR 0.9% 1000 ML INJ 1,000 ML IV SCH (07:43)
[2017-07-20] MEDS ORDERED: KETOROLAC TROMETHAMINE 30 MG/ML (IVP) VIAL IVP ONE (07:45)
[2017-07-20] MEDS ORDERED: SODIUM CHLORIDE 0.9% FLUSH 10 ML FLUSH IV FLUSH PRN (07:45)
[2017-07-20] MEDS ORDERED: KETOROLAC TROMETHAMINE 60 MG/2 ML (IM) VIAL IM ONE (08:00)
[2017-07-20 08:09] VITALS: O2SAT 97
[2017-07-20 08:43] LABS: AUTOMATED NEUTROPHIL # 10.4 TH/MM3 (1.8-7.7); BASOPHIL # 0.3 TH/MM3 (0-0.2); BASOPHIL % 2.6 % (0.0-2.0); EOSINOPHIL # 0.1 TH/MM3 (0-0.4); EOSINOPHIL % 0.6 % (0.0-4.0); HEMATOCRIT 44.7 % (35.0-46.0); HEMOGLOBIN 15.6 GM/DL (11.6-15.3); LYMPH % 8.6 % (9.0-44.0); MEAN CELL VOLUME 87.1 FL (80.0-100.0); MEAN CORPUSCULAR HEMOGLOBIN 30.5 PG (27.0-34.0); MEAN PLATELET VOLUME 8.6 FL (7.0-11.0); MONO % 3.5 % (0.0-8.0); MONOCYTE # 0.4 TH/MM3 (0-0.9); NEUT % 84.7 % (16.0-70.0); PLATELET COUNT 257 TH/MM3 (150-450); RED BLOOD COUNT 5.13 MIL/MM3 (4.00-5.30); RED CELL DISTRIBUTION WIDTH 13.2 % (11.6-17.2); WHITE BLOOD COUNT 12.2 TH/MM3 (4.0-11.0)
[2017-07-20 08:53] LABS: CHLORIDE 106 MEQ/L (98-107); SODIUM (NA) 138 MEQ/L (136-145)
[2017-07-20 08:56] LABS: BICARBONATE 24.2 MEQ/L (21.0-32.0); CALCIUM 9.3 MG/DL (8.5-10.1); GLUCOSE,RANDOM 246 MG/DL (74-106)
[2017-07-20 08:57] LABS: BLOOD UREA NITROGEN 12 MG/DL (7-18)
[2017-07-20 08:59] LABS: ALT (GPT) 43 U/L (10-53); AST (GOT) 35 U/L (15-37); CREATININE 0.97 MG/DL (0.50-1.00); GLOMERULAR FILTRATION RATE 61 ML/MIN (>89)
[2017-07-20 09:01] LABS: TOTAL BILIRUBIN ADULT 0.4 MG/DL (0.2-1.0); TOTAL PROTEIN 7.8 GM/DL (6.4-8.2)
[2017-07-20 09:02] LABS: ALKALINE PHOSPHATASE 95 U/L (45-117)
--- NOTE | 2017-07-20 09:17 | RADRPT ---
EXAM DATE: 07/20/2017 8:50 AM EDT AGE/SEX: 51 years / Female INDICATIONS: Mid abdominal pain. Nausea, vomiting and diarrhea. CLINICAL DATA: This is the patient's initial encounter. Patient reports that signs and symptoms have been present for 1 day and indicates a pain score of 9/10. MEDICAL/SURGICAL HISTORY: Diverticulitis. Gastroesophageal reflux disease. Irritable bowel sy ndrome. Cholecystectomy. Tubal ligation. section. Hysterectomy. RADIATION DOSE: 13.92 CTDI (mGy) COMPARISON: [facility], CT ABDOMEN & PELVIS W/O CONTRAST, 05/16/2017. . TECHNIQUE: Multiple contiguous axial images were obtained through the abdomen. Images were obtained using multiple row detector helical technique. Using dose reduction techniques, radiation dose was ke pt as low as reasonably achievable to obtain optimal diagnostic quality images. FINDINGS: Lower Lungs: The visualized lower lungs are clear. Liver: The liver has a homogeneous density without space-occupying lesion. There is no dilation of th e biliary tree. The patient is again noted to be status post cholecystectomy. Spleen: Homogeneous density without enlargement. Pancreas: Unremarkable without mass or calcification. Kidneys: Normal in size and shape. No evidence of mass or hydronephrosis. Adrenal Glands: Unremarkable. Aorta: The aorta and proximal iliac vessels are grossly unremarkable without aneurysmal dilation. Bowel/Mesentery: No oral contrast was given limiting the sensitivity. Anastomotic vickie are again n oted in the pelvis. There are multiple loops of nondilated air-containing small bowel with small air- fluid levels. There is no free air or fluid. Scattered diverticuli are present. Abdominal Wall: Intact. Retroperitoneum: No evidence of adenopathy in the retrocrural, para-aortic, or deep pelvic regions. Bladder: Contours are smooth. Reproductive Organs: No abnormal masses or calcifications seen. Inguinal: The inguinal region is unremarkable without evidence of adenopathy. Bony Structures: Unremarkable. CONCLUSION: 1. Mildly nonspecific, nonobstructive bowel gas pattern which may represent a mild ileus and/or ruben roenteritis. 2. Mild diverticulosis again noted with no focal inflammatory change. 3. Postsurgical changes status post bowel resection. 4. Status post cholecystectomy. Electronically signed by: Gorge Chan MD 07/20/2017 9:16 AM EDT
[2017-07-20] MEDS ORDERED: DICY10 PO (09:31)
[2017-07-20 09:36] VITALS: BP 176/85
[2017-07-21] MEDS ORDERED: ZOFR4TAB PO ×2 (08:28)
[2017-07-21] MEDS ORDERED: NEXI40CA PO ×2 (08:28)
[2017-07-21] MEDS ORDERED: VIST25CA PO ×4 (08:29→18:43)
== END 2017-07-20 09:45 | disposition home or self-care (01) ==
LOC: PHED 07:15
DX: K57.90 Diverticulosis of intestine, part unspecified, without perforation or abscess without bleeding (principal); D72.829 Elevated white blood cell count, unspecified; F31.9 Bipolar disorder, unspecified; E78.00 Pure hypercholesterolemia, unspecified; E11.9 Type 2 diabetes mellitus without complications; K21.9 Gastro-esophageal reflux disease without esophagitis; Z87.19 Personal history of other diseases of the digestive system; Z79.899 Other long term (current) drug therapy
CPT/HCPCS: 74176; 80053; 83690; 85025; 96372; 99284; J1885

== ENCOUNTER 2017-07-21 08:16 | Observation (INO) | payer OTHER ==
[~2017-07-21] VITALS: Ht 160 cm; Wt 71.0 kg
[2017-07-21] VITALS (10 sets, daily range): BP systolic 121–157; BP diastolic 72–87; PULSE 76–117; RESP 16–20; TEMP 97.7–99.2; O2SAT 95–99
[~2017-07-21 08:16] MED LIST changes: +DICY10 PO
[2017-07-21] MEDS ORDERED: ZOFR4TAB PO ×2 (08:28)
[2017-07-21] MEDS ORDERED: NEXI40CA PO ×2 (08:28)
[2017-07-21] MEDS ORDERED: VIST25CA PO ×4 (08:29→18:43)
[2017-07-21] MEDS ORDERED: SODIUM CHLORIDE 0.9% FLUSH 10 ML FLUSH IVF PRN (08:45)
[2017-07-21 09:08] LABS: AUTOMATED NEUTROPHIL # 4.1 TH/MM3 (1.8-7.7); BASOPHIL % 0.5 % (0.0-2.0); EOSINOPHIL # 0.2 TH/MM3 (0-0.4); EOSINOPHIL % 2.7 % (0.0-4.0); HEMATOCRIT 42.1 % (35.0-46.0); HEMOGLOBIN 14.5 GM/DL (11.6-15.3); LYMPH % 29.5 % (9.0-44.0); MEAN CORPUSCULAR HGB CONC 34.5 % (32.0-36.0); MEAN PLATELET VOLUME 9.2 FL (7.0-11.0); MONO % 6.1 % (0.0-8.0); MONOCYTE # 0.4 TH/MM3 (0-0.9); NEUT % 61.2 % (16.0-70.0); PLATELET COUNT 246 TH/MM3 (150-450); RED BLOOD COUNT 4.84 MIL/MM3 (4.00-5.30); RED CELL DISTRIBUTION WIDTH 13.6 % (11.6-17.2); WHITE BLOOD COUNT 6.7 TH/MM3 (4.0-11.0)
--- NOTE | 2017-07-21 09:16 | RADRPT ---
EXAM DATE: 07/21/2017 9:08 AM EDT AGE/SEX: 51 years / Female INDICATIONS: Chest pain. CLINICAL DATA: This is the patient's initial encounter. Patient reports that signs and symptoms have been present for 1 day and indicates a pain score of 2/10. MEDICAL/SURGICAL HISTORY: Irritable bowel syndrome. Diverticulitis. Cerebrovascular disease. Colon resection. Tubal ligation. section. Hysterectomy. Cholecystectomy. COMPARISON: [facility], CHEST SINGLE AP, 07/11/2017. . FINDINGS: A single AP view of the chest demonstrates the lungs to be symmetrically aerated without evidence of mass, infiltrate or effusion. The cardiomediastinal contours are unremarkable. Osseous structures a re intact. There are overlying cardiac leads. CONCLUSION: No acute cardiopulmonary disease. Electronically signed by: Gorge Chan MD 07/21/2017 9:15 AM EDT
[2017-07-21 09:22] LABS: PROTHROMBIN TIME - PATIENT 10.6 SEC (9.8-11.6)
[2017-07-21 09:24] LABS: D-DIMER 0.3 MG/L FEU (0.00-0.50)
[2017-07-21 09:45] LABS: BICARBONATE 21.8 MEQ/L (21.0-32.0); BLOOD UREA NITROGEN 9 MG/DL (7-18); CALCIUM 9.2 MG/DL (8.5-10.1); CHLORIDE 104 MEQ/L (98-107); GLOMERULAR FILTRATION RATE 53 ML/MIN (>89); GLUCOSE,RANDOM 231 MG/DL (74-106); SODIUM (NA) 136 MEQ/L (136-145); TROPONIN I LESS THAN 0.02 NG/ML (0.02-0.05)
--- NOTE | 2017-07-21 10:05 | PD ---
HPI Chief Complaint: Hypertension Time Seen by Provider: 08:45 Travel History International Travel<30 days: No Contact w/Intl Traveler<30days: No Traveled to known affect area: No History of Present Illness HPI 51-year-old female history diabetes mellitus, bipolar disorder, reported hypertension, who presents today with complaints of chest tightness. Patient reports that she was seen yesterday for general malaise in [place]. States at that time she mentioned the chest pain however she states they did not address it. She reports today that stating that when she was in the shower, she started feeling funny. She reports checking her pulse and blood pressure noted in them both to be elevated. She states this has happened in the past. She currently is not taking any blood pressure medication. She reports her diastolic was over 100 on both readings. Patient also reports that her pulse was over 100 on both readings. She describes the chest pain as pressure-like. She reports it is constant. She states that does not radiate. There is mild shortness of breath associated with the discomfort. The patient does have a previous history of smoking cigarettes. She denies any tobacco use at this time. PFSH Past Medical History Blood Disorders: No Bipolar Disorder: Yes (MANIC) Anxiety: Yes Depression: Yes Cancer: No Cardiac Catheterization: Yes Cardiovascular Problems: Yes High Cholesterol: Yes Diabetes: Yes Patient Takes Glucophage: No Diminished Hearing: No Endocrine: Yes Gastrointestinal Disorders: Yes (DIVERTICULITIS, GASTROPARESIS) GERD: Yes Genitourinary: No Hepatitis: No Hiatal Hernia: No Hypertension: No Immune Disorder: No Implanted Vascular Access Dvce: No Musculoskeletal: No Neurologic: No Psychiatric: Yes (manic depressive d/o) Reproductive: No Respiratory: No Immunizations Current: Yes Thyroid Disease: No Tetanus Vaccination: > 5 Years Influenza Vaccination: Yes ?: Not LMP: p Menopausal: Yes : 8 Para: 3 Miscarriage: 3 : 2 Tubal Ligation: Yes Past Surgical History Abdominal Surgery: Yes ("1 FOOT OF BOWEL REMOVED DUE TO DIVERTICULITIS") Section: Yes (x2) Cholecystectomy: Yes Gynecologic Surgery: Yes (HYSTERECTOMY, TUBAL, C SECTION X 2) Hysterectomy: Yes (partial) Other Surgery: Yes (DIVERTICULI REPAIR EXPLORATORY SX, LEFT BREAST LUMP REMOVED ) Social History Alcohol Use: No Tobacco Use: No (QUIT 7 YEARS AGO) Substance Use: Yes (MARIJUANNA) Allergies-Medications (Allergen,Severity, Reaction): Coded Allergies: acetaminophen (Verified Allergy, Severe, Itching, 07/21/17) hydrocodone (Verified Allergy, Severe, ITCHING, 07/21/17) AND FAMILY OF CETS oxycodone (Verified Allergy, Severe, Itching, 07/21/17) prochlorperazine (Verified Allergy, Severe, Hallucinations, 07/21/17) propoxyphene (Verified Allergy, Severe, Itching, 07/21/17) Reported Meds & Prescriptions Reported Meds & Active Scripts Active Bentyl (Dicyclomine HCl) 10 Mg Cap 10 Mg PO TID PRN Reglan (Metoclopramide HCl) 10 Mg Tab 10 Mg PO QID PRN Reported Vistaril (Hydroxyzine Pamoate) 25 Mg Cap 25 Mg PO BID Nexium (Esomeprazole DR) 40 Mg Capdr 40 Mg PO BID Zofran (Ondansetron HCl) 4 Mg Tab 4 Mg PO Q8HR PRN Review of Systems Except as stated in HPI: all other systems reviewed are Neg HENT: No: Headaches, Neck Pain Cardiovascular: Positive: Chest Pain or Discomfort, Tachycardia, No: Palpitations Respiratory: Positive: Shortness of Breath, No: Cough Gastrointestinal: No: Nausea, Vomiting, Abdominal Pain Musculoskeletal: No: Weakness, Pain Neurologic: No: Weakness, Dizziness, Headache Physical Exam Narrative GENERAL: Well-nourished, well-developed patient, in no acute respiratory distress. SKIN: Focused skin assessment warm/dry. HEAD: Normocephalic/atraumatic. EYES: No scleral icterus. No injection or drainage. NECK: Supple, trachea midline. CARDIOVASCULAR: Regular rate and rhythm without murmurs, gallops, or rubs. RESPIRATORY: Breath sounds equal bilaterally. No accessory muscle use. GASTROINTESTINAL: Abdomen soft, non-tender, nondistended. MUSCULOSKELETAL: No cyanosis, or edema. BACK: Nontender without obvious deformity. No CVA tenderness. NEUROLOGICAL: Awake and alert. Cranial nerves II through XII intact. Motor and sensory grossly within normal limits. Five out of 5 muscle strength in all muscle groups. Normal speech. Data Data Last Documented VS Vital Signs Date Time Temp Pulse Resp B/P (MAP) Pulse Ox O2 Delivery O2 Flow Rate FiO2 07/21/17 08:52 88 17 147/85 (105) 99 Room Air 154/87 (109) 07/21/17 08:19 99.2 Orders Orders Electrocardiogram (07/21/17 ) Basic Metabolic Panel (Bmp) (07/21/17 08:45) Ckmb (Isoenzyme) Profile (07/21/17 08:45) Complete Blood Count With Diff (07/21/17 08:45) D-Dimer (07/21/17 08:45) Magnesium (Mg) (07/21/17 08:45) Prothrombin Time / Inr (Pt) (07/21/17 08:45) Act Partial Throm Time (Ptt) (07/21/17 08:45) Troponin I (07/21/17 08:45) Chest, Single Ap (07/21/17 08:45) Ecg Monitoring (07/21/17 08:45) Bilateral Bp Monitoring (07/21/17 08:45) Iv Access Insert/Monitor (07/21/17 08:45) Oximetry (07/21/17 08:45) Oxygen Administration (07/21/17 08:45) Sodium Chloride 0.9% Flush (Ns Flush) (07/21/17 08:45) Admit Order (Ed Use Only) (07/21/17 09:57) Labs Laboratory Tests Test 07/21/17 08:50 White Blood Count 6.7 TH/MM3 Red Blood Count 4.84 MIL/MM3 Hemoglobin 14.5 GM/DL Hematocrit 42.1 % Mean Corpuscular Volume 87.0 FL Mean Corpuscular Hemoglobin 30.0 PG Mean Corpuscular Hemoglobin Concent 34.5 % Red Cell Distribution Width 13.6 % Platelet Count 246 TH/MM3 Mean Platelet Volume 9.2 FL Neutrophils (%) (Auto) 61.2 % Lymphocytes (%) (Auto) 29.5 % Monocytes (%) (Auto) 6.1 % Eosinophils (%) (Auto) 2.7 % Basophils (%) (Auto) 0.5 % Neutrophils # (Auto) 4.1 TH/MM3 Lymphocytes # (Auto) 2.0 TH/MM3 Monocytes # (Auto) 0.4 TH/MM3 Eosinophils # (Auto) 0.2 TH/MM3 Basophils # (Auto) 0.0 TH/MM3 CBC Comment DIFF FINAL Differential Comment Prothrombin Time 10.6 SEC Prothromb Time International Ratio 1.0 RATIO Activated Partial Thromboplast Time 25.2 SEC D-Dimer Quantitative (PE/DVT) 0.30 MG/L FEU Blood Urea Nitrogen 9 MG/DL Creatinine 1.10 MG/DL Random Glucose 231 MG/DL Calcium Level 9.2 MG/DL Magnesium Level 2.0 MG/DL Sodium Level 136 MEQ/L Potassium Level 4.1 MEQ/L Chloride Level 104 MEQ/L Carbon Dioxide Level 21.8 MEQ/L Anion Gap 10 MEQ/L Estimat Glomerular Filtration Rate 53 ML/MIN Total Creatine Kinase 70 U/L Troponin I LESS THAN 0.02 NG/ML MDM Medical Decision Making Medical Screen Exam Complete: Yes Emergency Medical Condition: Yes Medical Record Reviewed: Yes Differential Diagnosis ACS versus noncardiac chest discomfort versus anxiety versus metabolic derangement Narrative Course 51-year-old female with history of diabetes mellitus, dyslipidemia, bipolar disorder, presents today with complaints of chest pressure. Patient also reports elevated blood pressure and pulse noted while showering this morning. Patient's EKG shows no evidence of acute ST elevation or depression. Cardiac enzymes are within normal limits. The patient has been off her chest pain center and she is agreeable. Diagnosis Primary Impression: Chest pain Additional Impressions: Hyperglycemia Chronic abdominal pain Dyslipidemia Admitting Information Admitting Physician Requests: Observation Efrain Plata MD July 21, 2017 10:05
[2017-07-21] MEDS ORDERED: GLUCAGON 1 MG/ML VIAL OTHER PRN (11:15)
[2017-07-21] MEDS ORDERED: ONDANSETRON ODT 4 MG TAB PO PRN (11:15)
[2017-07-21] MEDS ORDERED: DEXTROSE 50% IN WATER 50 ML VIAL(D50) IV PUSH PRN (11:15)
--- NOTE | 2017-07-21 11:31 | HHI.HP ---
HPI Primary Care Physician TONI Coffman Chief Complaint Chest pain History of Present Illness This is a 51-year-old female history of hypertension, hyperlipidemia, diabetes, bipolar disorder that presents to ED with primary complaint of chest scar. States she has had a 4 day and have constant. Describes it as "a weight on my chest." May be activity worsens it but she has done things and it has not worsened. She has been short of breath, nauseous, and diaphoretic however she is also had the symptoms no chest pain. He has chronic nausea chronic diarrhea and sees a GI doctor. [facility] was [facility] yesterday for the same symptoms and was discharged. States she had a cardiac catheterization age 34 showing a 40% blockage of a heart vessel. Also states she has had a stress test but cannot recall long ago but it was normal. Denies fevers or chills. Review of Systems General: Patient denies fevers, chills, and recent travel. HEENT: Patient denies headache, sore throat, difficulty swallowing. Cardiovascular: Has the chest discomfort as mentioned above. Denies sensation of heart beating rapidly or irregularly. No syncope. She has been diaphoretic. Respiratory: She has been short of breath. Denies shortness of breath or inspirational chest discomfort. Denies coughing wheezing or hemoptysis. GI: Chronic nausea and emesis. States she had several watery bowel movements yesterday which made her think she was having another episode of diverticulitis prompting her visit to the ED. Chronic abdominal pain. Discomfort is a discomfort he she has had daily for more than 5 years. Patient denies bloody stools. Musculoskeletal: Patient denies joint pain or edema. Denies calf pain or edema. Neurovascular: Patient denies numbness, tingling, weakness in extremities. Denies headache. Endocrine: Denies polyuria and polydipsia. Hematologic: Denies easy bruising. Skin: Denies rash or itching. Past Family Social History Allergies: Coded Allergies: acetaminophen (Verified Allergy, Severe, Itching, 07/21/17) hydrocodone (Verified Allergy, Severe, ITCHING, 07/21/17) AND FAMILY OF CETS oxycodone (Verified Allergy, Severe, Itching, 07/21/17) prochlorperazine (Verified Allergy, Severe, Hallucinations, 07/21/17) propoxyphene (Verified Allergy, Severe, Itching, 07/21/17) Past Medical History Hypertension however not taking medication. Hyperlipidemia however also taking medication for diabetes and is not taking medication. Heart disease per patient. Past history of tobacco abuse. Past Surgical History Diverticulitis with partial colectomy. Hysterectomy, tubal ligation, C- section. Multiple endoscopies and colonoscopies. Reported Medications Reported Meds & Active Scripts Active Bentyl (Dicyclomine HCl) 10 Mg Cap 10 Mg PO TID PRN Reglan (Metoclopramide HCl) 10 Mg Tab 10 Mg PO QID PRN Reported Vistaril (Hydroxyzine Pamoate) 25 Mg Cap 25 Mg PO BID Nexium (Esomeprazole DR) 40 Mg Capdr 40 Mg PO BID Zofran (Ondansetron HCl) 4 Mg Tab 4 Mg PO Q8HR PRN Active Ordered Medications Current Medications Medications (Trade) Dose Ordered Sig/Adarsh Route Start Time Stop Time Status Last Admin (NS Flush) 2 ml UNSCH PRN IVF 07/21/17 08:45 07/21/17 09:24 (Aspirin) 325 mg DAILY PO 07/22/17 09:00 (Zofran Odt) 4 mg Q4H PRN PO 07/21/17 11:15 (NovoLOG SUPPLEMENTAL SCALE) 1 ACHS SLIDING SCALE SQ 07/21/17 12:00 (D50w (Vial) Inj) 50 ml UNSCH PRN IV PUSH 07/21/17 11:15 (Glucagon Inj) 1 mg UNSCH PRN OTHER 07/21/17 11:15 Family History Her mother had stents. Her father had an CA at age 47. Physical Exam Vital Signs Vital Signs Date Time Temp Pulse Resp B/P (MAP) Pulse Ox O2 Delivery O2 Flow Rate FiO2 07/21/17 10:29 97.8 87 16 150/86 (107) 98 Room Air 07/21/17 08:52 88 17 147/85 (105) 99 Room Air 154/87 (109) 07/21/17 08:50 98 Room Air 07/21/17 08:50 17 98 Room Air 07/21/17 08:31 101 20 99 Room Air 07/21/17 08:19 99.2 117 18 156/82 (106) 99 Physical Exam GENERAL: This is a well-nourished, well-developed patient, in no apparent distress. Patient speaks in clear complete sentences. Patient is pleasant. HEENT: Head is atraumatic and normocephalic. Neck is supple without lymphadenopathy and trachea is midline. No JVD or carotid bruits. CARDIOVASCULAR: Regular rate and rhythm without murmurs, gallops, or rubs. RESPIRATORY: Clear to auscultation. Breath sounds equal bilaterally. No wheezes , rales, or rhonchi. Chest wall is nontender. No use of accessory muscles. GASTROINTESTINAL: Abdomen is nontender, nondistended. Abdomen soft. No obvious pulsatile mass or bruit. No CVA tenderness. Strong femoral pulses bilaterally. Normal bowel sounds in all quadrants. MUSCULOSKELETAL: Patient is moving upper and lower extremities freely. No calf tenderness or edema, no Homans sign. Strong pulses in upper and lower extremities. NEUROLOGICAL: Patient is alert and oriented. Cranial nerves 2-12 are grossly intact. No focal deficits and speech is clear. SKIN: No rash and turgor is normal. Laboratory Laboratory Tests Test 07/21/17 08:50 White Blood Count 6.7 Red Blood Count 4.84 Hemoglobin 14.5 Hematocrit 42.1 Mean Corpuscular Volume 87.0 Mean Corpuscular Hemoglobin 30.0 Mean Corpuscular Hemoglobin Concent 34.5 Red Cell Distribution Width 13.6 Platelet Count 246 Mean Platelet Volume 9.2 Neutrophils (%) (Auto) 61.2 Lymphocytes (%) (Auto) 29.5 Monocytes (%) (Auto) 6.1 Eosinophils (%) (Auto) 2.7 Basophils (%) (Auto) 0.5 Neutrophils # (Auto) 4.1 Lymphocytes # (Auto) 2.0 Monocytes # (Auto) 0.4 Eosinophils # (Auto) 0.2 Basophils # (Auto) 0.0 CBC Comment DIFF FINAL Differential Comment Prothrombin Time 10.6 Prothromb Time International Ratio 1.0 Activated Partial Thromboplast Time 25.2 D-Dimer Quantitative (PE/DVT) 0.30 Blood Urea Nitrogen 9 Creatinine 1.10 Random Glucose 231 Calcium Level 9.2 Magnesium Level 2.0 Sodium Level 136 Potassium Level 4.1 Chloride Level 104 Carbon Dioxide Level 21.8 Anion Gap 10 Estimat Glomerular Filtration Rate 53 Total Creatine Kinase 70 Troponin I LESS THAN 0.02 Result Diagram: 07/21/17 0850 07/21/17 0850 Imaging Last 24 hours Impressions Chest X-Ray 07/21/17 3357 Signed Impressions: CONCLUSION: No acute cardiopulmonary disease. Course Initial EKG sinus rhythm rate [address] segment depressions or elevations. Caprini VTE Risk Assessment Caprini VTE Risk Assessment: No/Low Risk (score <= 1) Caprini Risk Assessment Model Point Value = 1 Point Value = 2 Point Value = 3 Point Value = 5 Age 41-60 Minor surgery BMI > 25 kg/m2 Swollen legs Varicose veins or History of unexplained or recurrent spontaneous Oral contraceptives or hormone replacement Sepsis (< 1 month) Serious lung disease, including pneumonia (< 1 month) Abnormal pulmonary function Acute myocardial infarction Congestive heart failure (< 1 month) History of inflammatory bowel disease Medical patient at bed rest Age 61-74 Arthroscopic surgery Major open surgery (> 45 min) Laparoscopic surgery (> 45 min) Malignancy Confined to bed (> 72 hours) Immobilizing plaster cast Central venous access Age >= 75 History of VTE Family history of VTE Factor V Leiden Prothrombin [id number] Lupus anticoagulant Anticardiolipin antibodies Elevated serum homocysteine Heparin-induced thrombocytopenia Other congenital or acquired thrombophilia Stroke (< 1 month) Elective arthroplasty Hip, pelvis, or leg fracture Acute spinal cord injury (< 1 month) Prophylaxis Regimen Total Risk Factor Score Risk Level Prophylaxis Regimen 0-1 Low Early ambulation 2 Moderate Order ONE of the following: *Sequential Compression Device (SCD) *Heparin 5000 units SQ BID 3-4 Higher Order ONE of the following medications: *Heparin 5000 units SQ TID *Enoxaparin/Lovenox 40 mg SQ daily (WT < 150 kg, CrCl > 30 mL/min) *Enoxaparin/Lovenox 30 mg SQ daily (WT < 150 kg, CrCl > 10-29 mL/min) *Enoxaparin/Lovenox 30 mg SQ BID (WT < 150 kg, CrCl > 30 mL/min) AND/OR *Sequential Compression Device (SCD) 5 or more Highest Order ONE of the following medications: *Heparin 5000 units SQ TID (Preferred with Epidurals) *Enoxaparin/Lovenox 40 mg SQ daily (WT < 150 kg, CrCl > 30 mL/min) *Enoxaparin/Lovenox 30 mg SQ daily (WT < 150 kg, CrCl > 10-29 mL/min) *Enoxaparin/Lovenox 30 mg SQ BID (WT < 150 kg, CrCl > 30 mL/min) AND *Sequential Compression Device (SCD) Assessment and Plan Assessment and Plan * Chest pain: Patient's first troponin and EKG are normal. She is being seen by Dr. Salmon of cardiology in the chest pain center. She will undergo a Lexiscan and if nonischemic will be discharged home with instructions to follow- up with her PCP. Return to ED for interval issues. * Hypertension: Patient will need to discuss medication with her physician. She states that she has not been on it for approximately 20 years. * Hyperlipidemia: Patient states she has taken herself off of cholesterol medicine probably a year ago. Thought that there is making her sick. She needs to discuss this with her physician. History of hyperlipidemia but she also has diabetes area * Diabetes: Patient is noncompliant with medication. She will be on sliding scale insulin coverage while in chest pain center. Patient also is not taking statin therapy and is also not on an RUBEN inhibitor to protect her kidneys. She states she is aware of this and has not taken the medication thinking makes her sick. * Chronic abdominal pain: Patient to follow-up with her sink maker. Patient is stable at this time. She is agreeable to this plan. Sánchez Pineda July 21, 2017 11:30
[2017-07-21] MEDS: INSULIN ASPART SUPPLEMENTAL SCALE SQ SCH ×3 (11:57→21:46)
[2017-07-21] MEDS ORDERED: RESP: ALBUTEROL 2.5 MG/IPRATROPIUM 0.5 MG NEB (PRN) INH (12:30)
[2017-07-21] MEDS ORDERED: RESP: ALBUTEROL 2.5 MG/IPRATROPIUM 0.5 MG NEB (SCH) INH ONE (12:30)
[2017-07-21] MEDS: LISINOPRIL 10 MG TAB PO SCH (13:34)
[2017-07-21] MEDS ORDERED: IBUPROFEN 400 MG TAB PO PRN (14:30)
[2017-07-21] MEDS ORDERED: cloNIDine HCL 0.1 MG TAB PO PRN (17:00)
[2017-07-21] MEDS ORDERED: ALUMINUM/MAGNESIUM/SIMETH 30 ML CUP PO PRN (21:00)
[2017-07-21] MEDS: FAMOTIDINE 20 MG TAB PO SCH (21:46)
[2017-07-21] MEDS ORDERED: ZOLPIDEM TARTRATE 10 MG TAB PO PRN (22:45)
[2017-07-22] VITALS: PULSE 83
[2017-07-22 03:45] VITALS: PULSE 75
[2017-07-22 03:55] VITALS: BP 130/79; PULSE 76; RESP 16; TEMP 98; O2SAT 98
[2017-07-22 07:48] VITALS: BP 126/75; PULSE 78; RESP 20; TEMP 97.8; O2SAT 98
[2017-07-22] MEDS: INSULIN ASPART SUPPLEMENTAL SCALE SQ SCH ×2 (08:00→12:06)
--- NOTE | 2017-07-22 08:03 | PD.CARD.PN ---
Subjective Subjective Remarks No complaints overnight. no further chest discomfort. Objective Medications Current Medications Medications (Trade) Dose Ordered Sig/Adarsh Route Start Time Stop Time Status Last Admin (NS Flush) 2 ml UNSCH PRN IVF 07/21/17 08:45 07/21/17 09:24 (Aspirin) 325 mg DAILY PO 07/22/17 09:00 (Zofran Odt) 4 mg Q4H PRN PO 07/21/17 11:15 07/21/17 14:52 (NovoLOG SUPPLEMENTAL SCALE) 1 ACHS SLIDING SCALE SQ 07/21/17 12:00 (D50w (Vial) Inj) 50 ml UNSCH PRN IV PUSH 07/21/17 11:15 (Glucagon Inj) 1 mg UNSCH PRN OTHER 07/21/17 11:15 (Duoneb Neb) 1 ampule Q4HR NEB PRN INH 07/21/17 12:30 (Prinivil) 10 mg DAILY PO 07/21/17 13:00 07/21/17 13:34 (Motrin) 400 mg Q8H PRN PO 07/21/17 14:30 07/21/17 14:52 (Catapres) 0.1 mg Q4H PRN PO 07/21/17 17:00 (Protonix) 40 mg DAILY PO 07/22/17 09:00 (Pepcid) 20 mg BID PO 07/21/17 21:00 07/21/17 21:46 (Mag-Al Plus Susp Liq) 30 ml Q1H PRN PO 07/21/17 21:00 07/21/17 21:46 (Ambien) 10 mg HS PRN PO 07/21/17 22:45 07/21/17 22:57 Vital Signs / I&O Vital Signs Date Time Temp Pulse Resp B/P (MAP) Pulse Ox O2 Delivery O2 Flow Rate FiO2 07/22/17 07:48 97.8 78 20 126/75 (92) 98 07/22/17 03:55 98.0 76 16 130/79 (96) 98 07/22/17 03:45 75 07/22/17 00:00 83 07/21/17 23:46 98.3 81 16 121/75 (90) 95 07/21/17 21:10 21 07/21/17 20:44 99.2 80 18 137/82 (100) 95 07/21/17 15:36 98.5 86 20 153/72 (99) 97 07/21/17 13:12 98.4 82 20 151/77 (101) 95 07/21/17 12:51 97.8 81 16 150/83 (105) 99 07/21/17 11:58 97.7 76 16 157/86 (109) 99 Room Air 07/21/17 10:29 97.8 87 16 150/86 (107) 98 Room Air 07/21/17 08:52 88 17 147/85 (105) 99 Room Air 154/87 (109) 07/21/17 08:50 98 Room Air 07/21/17 08:50 17 98 Room Air 07/21/17 08:31 101 20 99 Room Air 07/21/17 08:19 99.2 117 18 156/82 (106) 99 Physical Exam GENERAL: Alert WN, WD, NAD, pleasant, female HEAD: NC, AC CV: RRR, without murmur, rub, gallop, no JVD, S1-S2 no S3-S4. RESP: Clear lungs throughout bilateral, no crackles, wheeze, rhonchi, symmetrical chest rise, nonlabored, able to speak in full sentences PSYCH: A+O x3, pleasant affect, appropriate speech, mood, insight and judgment SKIN: Normal turgor, normal texture Laboratory Laboratory Tests Test 07/21/17 08:50 White Blood Count 6.7 TH/MM3 Red Blood Count 4.84 MIL/MM3 Hemoglobin 14.5 GM/DL Hematocrit 42.1 % Mean Corpuscular Volume 87.0 FL Mean Corpuscular Hemoglobin 30.0 PG Mean Corpuscular Hemoglobin Concent 34.5 % Red Cell Distribution Width 13.6 % Platelet Count 246 TH/MM3 Mean Platelet Volume 9.2 FL Neutrophils (%) (Auto) 61.2 % Lymphocytes (%) (Auto) 29.5 % Monocytes (%) (Auto) 6.1 % Eosinophils (%) (Auto) 2.7 % Basophils (%) (Auto) 0.5 % Neutrophils # (Auto) 4.1 TH/MM3 Lymphocytes # (Auto) 2.0 TH/MM3 Monocytes # (Auto) 0.4 TH/MM3 Eosinophils # (Auto) 0.2 TH/MM3 Basophils # (Auto) 0.0 TH/MM3 CBC Comment DIFF FINAL Differential Comment Prothrombin Time 10.6 SEC Prothromb Time International Ratio 1.0 RATIO Activated Partial Thromboplast Time 25.2 SEC D-Dimer Quantitative (PE/DVT) 0.30 MG/L FEU Blood Urea Nitrogen 9 MG/DL Creatinine 1.10 MG/DL Random Glucose 231 MG/DL Calcium Level 9.2 MG/DL Magnesium Level 2.0 MG/DL Sodium Level 136 MEQ/L Potassium Level 4.1 MEQ/L Chloride Level 104 MEQ/L Carbon Dioxide Level 21.8 MEQ/L Anion Gap 10 MEQ/L Estimat Glomerular Filtration Rate 53 ML/MIN Total Creatine Kinase 70 U/L Troponin I LESS THAN 0.02 NG/ML Imaging Last 24 hours Impressions Chest X-Ray 07/21/17 0845 Signed Impressions: CONCLUSION: No acute cardiopulmonary disease. Assessment and Plan Assessment and Plan Proceed with Lexiscan as previously recommended. Patient agreeable to plan of care. Izabela Izquierdo Jul 22, 2017 08:03
[2017-07-22 08:20] VITALS: PULSE 89
--- NOTE | 2017-07-22 08:42 | EKG ---
Date Performed: 07/21/2017 Time Performed: 08:44:08 PTAGE: 51 years EKG: Sinus rhythm Consider inferior myocardial infarction, age indeterminate PREVIOUS TRACING : 11/04/2016 07.21 DOCTOR: Krystian Amaya Interpretating Date/Time 07/22/2017 08:41:08
[2017-07-22] MEDS ORDERED: ASPIRIN 325 MG TAB PO SCH (09:00)
[2017-07-22] MEDS ORDERED: PANTOPRAZOLE SOD 40 MG DELAYED RELEASE TAB PO SCH (09:00)
[2017-07-22] MEDS ORDERED: REGADENOSON INJ 0.4 MG/5 ML SYR ONE (09:38)
[2017-07-22] MEDS: LISINOPRIL 10 MG TAB PO SCH (10:52)
[2017-07-22] MEDS: FAMOTIDINE 20 MG TAB PO SCH (10:52)
--- NOTE | 2017-07-22 11:06 | RADRPT ---
EXAM DATE: 07/22/2017 10:51 AM EDT AGE/SEX: 51 years / Female INDICATIONS:Angina. . Chest pain. CLINICAL DATA: This is the patient's initial encounter. Patient reports that signs and symptoms have been present for 1 day and indicates a pain score of 1/10. MEDICAL/SURGICAL HISTORY: Hypertension. Diabetes mellitus type II. Cholecystectomy. Tubal lig ation. Hysterectomy. COMPARISON: No prior [facility] exams available for comparison. DOSE: 8.5 mCi Tc 99m Myoview at rest 25.4 mCi [id number] at rest 0.4 mg Lexiscan STRESS SYMPTOMS: Dyspnea, flushed, diaphoresis, nausea and chest pain. EJECTION FRACTION: 70 % TECHNIQUE: The patient underwent pharmacologic stress with infusion of prescribed dose. Continuous ECG tracing was monitored during stress. Gated SPECT imaging was performed after stress and conventi onal SPECT imaging was performed at rest. The examination was performed on a SPECT/CT scanner, both attenuation and non-corrected datasets were reviewed. FINDINGS: Distribution: The maximum perfused segment at stress is in the lateral wall. Perfusion Study: The pattern of perfusion at stress is within normal limits. Gated Study: There are intact wall motion and wall thickening without hypokinetic or dyskinetic segm ents. The ejection fraction is calculated at 70%. RISK CATEGORY: Low (<1% Annual Motality Rate) CONCLUSION: 1. No reversible perfusion defect to indicate stress-induced myocardial ischemia identified. Electronically signed by: Narciso Velez MD 07/22/2017 11:05 AM EDT
[2017-07-22 11:41] VITALS: BP 146/77; PULSE 76; RESP 16; TEMP 98.5; O2SAT 97
--- NOTE | 2017-07-22 13:10 | HHI.DCPOC ---
Discharge Care Plan Diagnosis: (1) Atypical chest pain Goals to Promote Your Health * To prevent worsening of your condition and complications * To maintain your health at the optimal level Directions to Meet Your Goals Take your medications as prescribed Follow your dietary instruction Follow activity as directed Keep your appointments as scheduled Take your immunizations and boosters as scheduled If your symptoms worsen call your PCP, if no PCP go to Urgent Care Center or Emergency Room Smoking is Dangerous to Your Health. Avoid second hand smoke Call the 24-hour hour crisis hotline for domestic abuse at Izabela Izquierdo Jul 22, 2017 13:10
--- NOTE | 2017-07-22 13:13 | TR ---
Date Performed: 07/22/2017 Time Performed: 09:35:44 DOCTOR: Ricardo Salmon DRUG LIST: CLINICAL HISTORY: CHEST PAIN REASON FOR TEST: CHEST PAIN REASON FOR ENDING: OBSERVATION: CONCLUSION: COMMENTS: Lexiscan stress test was performed under standard four minute protocol. Radionuclide was injected one minute prior to ending the test. No electrocardiographic abormalities were present t o suggest ischemia. Nuclear imaging and interpretation are pending.
[2017-07-22] MEDS ORDERED: LISI10TA3 PO (14:32)
== END 2017-07-22 15:20 | disposition home or self-care (01) ==
LOC: NEPC 08:16 → NEDA 09:59 → NEPGCP 13:13
DX: R07.89 Other chest pain (principal); R06.02 Shortness of breath; R11.0 Nausea; R61 Generalized hyperhidrosis; I10 Essential (primary) hypertension; E78.5 Hyperlipidemia, unspecified; E11.65 Type 2 diabetes mellitus with hyperglycemia; E11.43 Type 2 diabetes mellitus with diabetic autonomic (poly)neuropathy; K31.84 Gastroparesis; K21.9 Gastro-esophageal reflux disease without esophagitis; G89.29 Other chronic pain; F31.9 Bipolar disorder, unspecified; F41.9 Anxiety disorder, unspecified; Z79.899 Other long term (current) drug therapy; Z87.891 Personal history of nicotine dependence
CPT/HCPCS: 71045; 78452; 80048; 82550; 82948; 83735; 84484; 85025; 85379; 85610; 85730; 93005; 93017; 94664; 99285; A9502; G0378; J2785

== ENCOUNTER 2017-08-06 00:31 | Emergency (ER) | payer OTHER ==
[~2017-08-06] VITALS: Ht 160 cm; Wt 72.9 kg
[~2017-08-06 00:31] MED LIST changes: +LISI10TA3 PO; +VIST25CA PO
[2017-08-06] MEDS ORDERED: IOHEXOL 350 MG/ML 10 ML VIAL (for RAD DIAG) IVCONTRAST ONE (00:32)
[2017-08-06 00:36] VITALS: BP 182/93; PULSE 95; RESP 18; TEMP 98.5; O2SAT 99
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
[2017-08-06] MEDS ORDERED: SODIUM CHLORIDE 0.9% FLUSH 10 ML FLUSH IVF PRN (01:00)
[2017-08-06] MEDS ORDERED: KETOROLAC TROMETHAMINE 30 MG/ML (IVP) VIAL IV PUSH ONE (01:00)
[2017-08-06 01:18] LABS: AUTOMATED NEUTROPHIL # 3.8 TH/MM3 (1.8-7.7); BASOPHIL # 0.2 TH/MM3 (0-0.2); BASOPHIL % 2.2 % (0.0-2.0); EOSINOPHIL # 0.6 TH/MM3 (0-0.4); HEMATOCRIT 43.1 % (35.0-46.0); HEMOGLOBIN 14.7 GM/DL (11.6-15.3); LYMPH % 38.2 % (9.0-44.0); LYMPHOCYTE # 3.1 TH/MM3 (1.0-4.8); MEAN CELL VOLUME 87.4 FL (80.0-100.0); MEAN CORPUSCULAR HEMOGLOBIN 29.8 PG (27.0-34.0); MEAN CORPUSCULAR HGB CONC 34.1 % (32.0-36.0); MEAN PLATELET VOLUME 8.8 FL (7.0-11.0); MONO % 5.6 % (0.0-8.0); MONOCYTE # 0.5 TH/MM3 (0-0.9); PLATELET COUNT 309 TH/MM3 (150-450); RED BLOOD COUNT 4.93 MIL/MM3 (4.00-5.30); RED CELL DISTRIBUTION WIDTH 13.1 % (11.6-17.2); WHITE BLOOD COUNT 8.2 TH/MM3 (4.0-11.0)
[2017-08-06 01:22] VITALS: O2SAT 100
[2017-08-06 01:55] LABS: CHLORIDE 107 MEQ/L (98-107); SODIUM (NA) 141 MEQ/L (136-145)
[2017-08-06 01:58] LABS: CALCIUM 8.6 MG/DL (8.5-10.1)
[2017-08-06 01:59] LABS: ALBUMIN 3.5 GM/DL (3.4-5.0); BICARBONATE 24.7 MEQ/L (21.0-32.0); BLOOD UREA NITROGEN 10 MG/DL (7-18); GLUCOSE,RANDOM 208 MG/DL (74-106)
[2017-08-06 02:02] LABS: ALT (GPT) 15 U/L (10-53); AST (GOT) 9 U/L (15-37); GLOMERULAR FILTRATION RATE 66 ML/MIN (>89)
[2017-08-06 02:03] LABS: TOTAL BILIRUBIN ADULT 0.2 MG/DL (0.2-1.0)
[2017-08-06 02:04] LABS: ALKALINE PHOSPHATASE 83 U/L (45-117)
[2017-08-06 02:07] LABS: TROPONIN I LESS THAN 0.02 NG/ML (0.02-0.05)
[2017-08-06] MEDS ORDERED: traMADol HCL 50 MG TAB PO ONE (02:30)
--- NOTE | 2017-08-06 02:36 | RADRPT ---
EXAM DATE: 08/06/2017 2:22 AM EDT AGE/SEX: 51 years / Female INDICATIONS: Left sided chest pain radiating into left arm. CLINICAL DATA: This is the patient's initial encounter. Patient reports that signs and symptoms have been present for 1 day and indicates a pain score of 9/10. MEDICAL/SURGICAL HISTORY: Diabetes. Cardiovascular disease. Irritable bowel syndrome. Cholecystec zoran. Hysterectomy. RADIATION DOSE: 10.11 CTDI (mGy) COMPARISON: No prior exams available for comparison. TECHNIQUE: Volumetric scanning was performed using a multi-row detector CT scanner during bolus infu naveed of 74 ml Omnipaque 350 (iohexol) nonionic water-soluble contrast as a single exam dose. The mariah a was post processed with a variety of visualization algorithms including full volume maximum intensi ty projection and sliding thin slab reformation. Using automated exposure control and adjustment of the mA and/or kV according to patient size, radiation dose was kept as low as reasonably achievable t o obtain optimal diagnostic quality images. FINDINGS: Pulmonary Arteries: No filling defects are seen in the pulmonary arteries . The left and right pulm onary arteries are normal in diameter. Lung: No infiltrates seen. Effusion: None. Mediastinum: No evidence of mediastinal or hilar adenopathy. Minimal coronary artery calcifications. Other: The axilla is unremarkable. Prominent degenerative changes thoracic spine. CONCLUSION: 1. No evidence for pulmonary embolus. 2. Minimal coronary artery calcifications. 3. No infiltrate or mass. Electronically signed by: Isauro Perez MD 08/06/2017 2:35 AM EDT
[2017-08-06 05:09] VITALS: BP 142/83; PULSE 88; RESP 20; O2SAT 98
[2017-08-06] MEDS ORDERED: TRAM50TA PO (05:27)
[2017-08-06 05:51] VITALS: BP 146/79
--- NOTE | 2017-08-06 12:58 | EKG ---
Date Performed: 08/06/2017 Time Performed: 01:29:37 PTAGE: 51 years EKG: Sinus rhythm NORMAL ECG PREVIOUS TRACING : 07/21/2017 08.44 Since the previous tracing, no significant change noted DOCTOR: Andrade Nathan Interpretating Date/Time 08/06/2017 12:54:02
== END 2017-08-06 05:50 | disposition home or self-care (01) ==
LOC: PHED 00:31
DX: R07.89 Other chest pain (principal); R05 Cough; E11.43 Type 2 diabetes mellitus with diabetic autonomic (poly)neuropathy; K31.84 Gastroparesis; F12.90 Cannabis use, unspecified, uncomplicated; F31.9 Bipolar disorder, unspecified; F41.9 Anxiety disorder, unspecified; E78.00 Pure hypercholesterolemia, unspecified; K21.9 Gastro-esophageal reflux disease without esophagitis; Z79.899 Other long term (current) drug therapy; Z88.6 Allergy status to analgesic agent; Z87.19 Personal history of other diseases of the digestive system; Z88.5 Allergy status to narcotic agent; Z88.8 Allergy status to other drugs, medicaments and biological substances
CPT/HCPCS: 71275; 80053; 83690; 84484; 85025; 93005; 96374; 99285; J1885; Q9967

== ENCOUNTER 2018-01-13 06:59 | Observation (INO) ==
[2018-01-13] MEDS ORDERED: Dicyclomine Inj 20 MG/2 ML Ampul IM ONE (07:12)
[2018-01-13] MEDS ORDERED: Sod Chloride 0.9% Inj 1,000 ML IV.SIG ONE (07:12)
[2018-01-13] MEDS ORDERED: Aluminum/Magnesium/Simethacone Susp 30 ML UDC PO ONE (07:12)
[2018-01-13] MEDS ORDERED: Pantoprazole Inj 40 MG Vial IV.PUSH ONE (07:21)
--- NOTE | 2018-01-13 07:29 | ED ---
HPI General Chief complaint: Abdominal Pain Stated complaint: abd pain-n/v/d Time Seen by Provider: 01/13/18 07:11 History of Present Illness HPI narrative: 52 female here for evaluation of and epigastric abdominal pain. Symptoms started last night around 4:00 in the morning, vomited multiple times, vomitus nonbloody epigastric pain occurred after the vomiting, nonbilious., Rated 3/10 in the epigastric region, burning, no fever chills or night sweats. Patient was here 4 days ago for the same reason and had an extensive workup including CAT scan of the abdomen that was normal. She reports no new symptoms helping her but now it did not. Related Data Home Medications Medication Instructions Recorded Confirmed atorvastatin 40 mg PO DAILY 01/09/18 01/13/18 sitagliptin [Januvia] 50 mg PO DAILY 01/09/18 01/13/18 ticagrelor [Brilinta] 90 mg PO BID 01/09/18 01/13/18 Previous Rx's Medication Instructions Recorded promethazine 25 mg PO Q6H PRN #12 tab 01/14/18 Allergies Allergy/AdvReac Type Severity Reaction Status Date / Time acetaminophen Allergy Severe Itching Verified 01/13/18 07:16 hydrocodone Allergy Severe ITCHING Verified 01/13/18 07:16 lactose Allergy Severe Gastrointestinal Verified 01/13/18 07:16 Upset oxycodone Allergy Severe Itching Verified 01/13/18 07:16 prochlorperazine Allergy Severe Hallucinati Verified 01/13/18 07:16 ons propoxyphene Allergy Severe Itching Verified 01/13/18 07:16 [facility] Family History Family History Other No pertinent family history Social History Social History Substance History: No History of Abuse Second Hand Smoke Exposure: No Smoking Status: Never smoker Tobacco Type: Cigarettes How Often Do You Have a Drink Containing Alcohol: Never Immunization History Tetanus Immunization: Unsure Exam Narrative Exam Narrative: GENERAL: Alert oriented x3 no acute distress. SKIN: Focused skin assessment warm/dry. HEAD: Atraumatic. Normocephalic. EYES: Pupils equal and round. No scleral icterus. No injection or drainage. ENT: No nasal bleeding or discharge. Mucous membranes pink and moist. NECK: Trachea midline. No JVD. CARDIOVASCULAR: Regular rate and rhythm. No murmur appreciated. RESPIRATORY: No accessory muscle use. Clear to auscultation. Breath sounds equal bilaterally. GASTROINTESTINAL: Abdomen soft, non-tender, nondistended. Hepatic and splenic margins not palpable. MUSCULOSKELETAL: No obvious deformities. No clubbing. No cyanosis. No edema. NEUROLOGICAL: Awake and alert. No obvious cranial nerve deficits. Motor grossly within normal limits. Normal speech. PSYCHIATRIC: Appropriate mood and affect; insight and judgment normal. Course Initial Documented Vital Signs Temperature 97.5 F L 01/13/18 07:00 Pulse Rate 86 01/13/18 07:00 Respiratory Rate 16 01/13/18 07:00 Blood Pressure 173/99 H 01/13/18 07:00 Pulse Oximetry 97 01/13/18 07:00 Last Documented Vital Signs Temperature 98.3 F 01/14/18 08:00 Pulse Rate 76 01/14/18 08:00 Respiratory Rate 18 01/14/18 08:00 Blood Pressure 117/69 01/14/18 08:00 Pulse Oximetry 96 01/14/18 08:00 Medical Decision Making MDM Narrative Medical decision making narrative: 52 female here for abdominal pain and nausea and vomiting that started this morning. Throughout the ER course she has been having multiple episodes of vomiting, reports severe abdominal pain, her urine drug screen is positive for cannabinoids, it seems that her symptoms could be due to the marijuana use versus acute intra-abdominal , her CAT scan is negative , patient received multiple medications for her nausea including Zofran and, IV fluids, Protonix, Toradol and that did not seem to be helping her case, she continues to report severe pain, she was here 4 days ago and came back because her symptoms are not improving. Medical Screen Exam Complete: Yes Emergency Medical Condition: Yes Lab Data Result diagrams: 01/14/18 06:25 01/14/18 06:25 Lab Results 01/13/18 01/13/18 01/13/18 Range/Units 07:30 07:30 07:30 CBC w Diff Slide review pending WBC 20.0 H (4.0-11.0) th/mm3 RBC 5.47 H (4.00-5.30) mil/mm3 Hgb 16.3 H (11.6-15.3) gm/dL Hct 48.9 H (35.0-46.0) % MCV 89.4 (80.0-100.0) fL MCH 29.8 (27.0-34.0) pg MCHC 33.3 (32.0-36.0) % RDW 13.9 (11.6-17.2) % Plt Count 365 D (150-450) th/mm3 MPV 9.9 (7.0-11.0) fL Neut % (Auto) 81.2 H (16.0-70.0) % Lymph % (Auto) 14.5 (9.0-44.0) % [place] % (Auto) 2.4 (0.0-8.0) % Eos % (Auto) 1.3 (0.0-4.0) % Baso % (Auto) 0.6 (0.0-2.0) % Neut # (Auto) 16.2 H (1.8-7.7) th/mm3 Lymph # (Auto) 2.9 (1.0-4.8) th/mm3 [place] # (Auto) 0.5 (0.0-0.9) th/mm3 Eos # (Auto) 0.3 (0.0-0.4) th/mm3 Baso # (Auto) 0.1 (0.0-0.2) th/mm3 WBC Differential . Diff Scan Auto diff confirmed Differential Comment . Platelet Estimate Normal (Normal) Platelet Morphology Normal (Normal) RBC Morphology Normal (Normal) Sodium 140 (136-145) meq/L Potassium 3.9 (3.5-5.1) meq/L Chloride 108 H (98-107) meq/L Carbon Dioxide 19.5 L (21.0-32.0) meq/L Anion Gap 13 (5-15) meq/L BUN 10 (7-18) mg/dL Creatinine 1.00 (0.50-1.00) mg/dL Estimated GFR 58 L (>89) mL/min POC Glucose (68-110) mg/dl Random Glucose 276 H (74-106) mg/dL Calcium 9.4 (8.5-10.1) mg/dL Total Bilirubin 0.3 (0.2-1.0) mg/dL AST 16 (15-37) U/L ALT 29 (10-53) U/L Alkaline Phosphatase 110 (45-117) U/L Total Creatine Kinase 91 (26-192) U/L CK-MB (CK-2) (0.5-3.6) ng/mL CK-MB (CK-2) % (0.0-4.0) % Troponin I Less than 0.02 L (0.02-0.05) ng/mL Total Protein 8.0 D (6.4-8.2) g/dL Albumin 4.2 (3.4-5.0) g/dL Lipase 173 (73-393) U/L Ur Collection Type Urine Color (Yellw/Straw) Urine Clarity (Clear) Urine pH (5.0-8.5) Ur Specific [place] (1.002-1.035) Urine Protein (Neg-Trace) mg/dL Urine Glucose (UA) (Negative) mg/dL Urine Ketones (Negative) mg/dL Urine Occult Blood (Negative) Urine Nitrate (Negative) Urine Bilirubin (Negative) Urine Urobilinogen (Less than 2) mg/dL Ur Leukocyte Esterase (Negative) Micro UA Comment Ur Microscopic Review Urine Culture Comments Urine Collection Time hours Urine Opiates Screen (Neg) Ur Barbiturates Screen (Neg) Ur Amphetamines Screen (Neg) U Benzodiazepines Scrn (Neg) Urine Cocaine Screen (Neg) U Cannabinoids Screen (Neg) 01/13/18 01/13/18 01/13/18 Range/Units 09:05 09:05 16:54 CBC w Diff WBC (4.0-11.0) th/mm3 RBC (4.00-5.30) mil/mm3 Hgb (11.6-15.3) gm/dL Hct (35.0-46.0) % MCV (80.0-100.0) fL MCH (27.0-34.0) pg MCHC (32.0-36.0) % RDW (11.6-17.2) % Plt Count (150-450) th/mm3 MPV (7.0-11.0) fL Neut % (Auto) (16.0-70.0) % Lymph % (Auto) (9.0-44.0) % [place] % (Auto) (0.0-8.0) % Eos % (Auto) (0.0-4.0) % Baso % (Auto) (0.0-2.0) % Neut # (Auto) (1.8-7.7) th/mm3 Lymph # (Auto) (1.0-4.8) th/mm3 [place] # (Auto) (0.0-0.9) th/mm3 Eos # (Auto) (0.0-0.4) th/mm3 Baso # (Auto) (0.0-0.2) th/mm3 WBC Differential Diff Scan Differential Comment Platelet Estimate (Normal) Platelet Morphology (Normal) RBC Morphology (Normal) Sodium (136-145) meq/L Potassium (3.5-5.1) meq/L Chloride (98-107) meq/L Carbon Dioxide (21.0-32.0) meq/L Anion Gap (5-15) meq/L BUN (7-18) mg/dL Creatinine (0.50-1.00) mg/dL Estimated GFR (>89) mL/min POC Glucose 200 H (68-110) mg/dl Random Glucose (74-106) mg/dL Calcium (8.5-10.1) mg/dL Total Bilirubin (0.2-1.0) mg/dL AST (15-37) U/L ALT (10-53) U/L Alkaline Phosphatase (45-117) U/L Total Creatine Kinase (26-192) U/L CK-MB (CK-2) (0.5-3.6) ng/mL CK-MB (CK-2) % (0.0-4.0) % Troponin I (0.02-0.05) ng/mL Total Protein (6.4-8.2) g/dL Albumin (3.4-5.0) g/dL Lipase (73-393) U/L Ur Collection Type Clean catch Urine Color Yellow (Yellw/Straw) Urine Clarity Clear (Clear) Urine pH 6.5 (5.0-8.5) Ur Specific [place] 1.010 (1.002-1.035) Urine Protein Negative (Neg-Trace) mg/dL Urine Glucose (UA) 250 H (Negative) mg/dL Urine Ketones Negative (Negative) mg/dL Urine Occult Blood Negative (Negative) Urine Nitrate Negative (Negative) Urine Bilirubin Negative (Negative) Urine Urobilinogen 0.2 (Less than 2) mg/dL Ur Leukocyte Esterase Negative (Negative) Micro UA Comment Culture not ind Ur Microscopic Review Microscopic reviewed Urine Culture Comments Culture not ind Urine Collection Time 905 hours Urine Opiates Screen Neg (Neg) Ur Barbiturates Screen Neg (Neg) Ur Amphetamines Screen Neg (Neg) U Benzodiazepines Scrn Neg (Neg) Urine Cocaine Screen Neg (Neg) U Cannabinoids Screen Pos H (Neg) 01/13/18 01/13/18 01/14/18 Range/Units 17:56 21:54 06:25 CBC w Diff WBC (4.0-11.0) th/mm3 RBC (4.00-5.30) mil/mm3 Hgb (11.6-15.3) gm/dL Hct (35.0-46.0) % MCV (80.0-100.0) fL MCH (27.0-34.0) pg MCHC (32.0-36.0) % RDW (11.6-17.2) % Plt Count (150-450) th/mm3 MPV (7.0-11.0) fL Neut % (Auto) (16.0-70.0) % Lymph % (Auto) (9.0-44.0) % [place] % (Auto) (0.0-8.0) % Eos % (Auto) (0.0-4.0) % Baso % (Auto) (0.0-2.0) % Neut # (Auto) (1.8-7.7) th/mm3 Lymph # (Auto) (1.0-4.8) th/mm3 [place] # (Auto) (0.0-0.9) th/mm3 Eos # (Auto) (0.0-0.4) th/mm3 Baso # (Auto) (0.0-0.2) th/mm3 WBC Differential Diff Scan Differential Comment Platelet Estimate (Normal) Platelet Morphology (Normal) RBC Morphology (Normal) Sodium (136-145) meq/L Potassium (3.5-5.1) meq/L Chloride (98-107) meq/L Carbon Dioxide (21.0-32.0) meq/L Anion Gap (5-15) meq/L BUN (7-18) mg/dL Creatinine (0.50-1.00) mg/dL Estimated GFR (>89) mL/min POC Glucose 128 H (68-110) mg/dl Random Glucose (74-106) mg/dL Calcium (8.5-10.1) mg/dL Total Bilirubin (0.2-1.0) mg/dL AST (15-37) U/L ALT (10-53) U/L Alkaline Phosphatase (45-117) U/L Total Creatine Kinase 122 352 H (26-192) U/L CK-MB (CK-2) 3.2 (0.5-3.6) ng/mL CK-MB (CK-2) % 0.9 (0.0-4.0) % Troponin I Less than 0.02 L Less than 0.02 L (0.02-0.05) ng/mL Total Protein (6.4-8.2) g/dL Albumin (3.4-5.0) g/dL Lipase (73-393) U/L Ur Collection Type Urine Color (Yellw/Straw) Urine Clarity (Clear) Urine pH (5.0-8.5) Ur Specific [place] (1.002-1.035) Urine Protein (Neg-Trace) mg/dL Urine Glucose (UA) (Negative) mg/dL Urine Ketones (Negative) mg/dL Urine Occult Blood (Negative) Urine Nitrate (Negative) Urine Bilirubin (Negative) Urine Urobilinogen (Less than 2) mg/dL Ur Leukocyte Esterase (Negative) Micro UA Comment Ur Microscopic Review Urine Culture Comments Urine Collection Time hours Urine Opiates Screen (Neg) Ur Barbiturates Screen (Neg) Ur Amphetamines Screen (Neg) U Benzodiazepines Scrn (Neg) Urine Cocaine Screen (Neg) U Cannabinoids Screen (Neg) 01/14/18 01/14/18 Range/Units 06:25 06:25 CBC w Diff Auto diff final WBC 11.5 H (4.0-11.0) th/mm3 RBC 4.35 (4.00-5.30) mil/mm3 Hgb 12.8 D (11.6-15.3) gm/dL Hct 39.0 (35.0-46.0) % MCV 89.6 (80.0-100.0) fL MCH 29.5 (27.0-34.0) pg MCHC 33.0 (32.0-36.0) % RDW 13.9 (11.6-17.2) % Plt Count 244 D (150-450) th/mm3 MPV 9.5 (7.0-11.0) fL Neut % (Auto) 70.8 H (16.0-70.0) % Lymph % (Auto) 22.6 (9.0-44.0) % [place] % (Auto) 5.0 (0.0-8.0) % Eos % (Auto) 0.8 (0.0-4.0) % Baso % (Auto) 0.8 (0.0-2.0) % Neut # (Auto) 8.1 H (1.8-7.7) th/mm3 Lymph # (Auto) 2.6 (1.0-4.8) th/mm3 [place] # (Auto) 0.6 (0.0-0.9) th/mm3 Eos # (Auto) 0.1 (0.0-0.4) th/mm3 Baso # (Auto) 0.1 (0.0-0.2) th/mm3 WBC Differential . Diff Scan Differential Comment . Platelet Estimate (Normal) Platelet Morphology (Normal) RBC Morphology (Normal) Sodium 142 (136-145) meq/L Potassium 3.2 L (3.5-5.1) meq/L Chloride 110 H (98-107) meq/L Carbon Dioxide 23.3 (21.0-32.0) meq/L Anion Gap 9 (5-15) meq/L BUN 9 (7-18) mg/dL Creatinine 0.75 (0.50-1.00) mg/dL Estimated GFR 81 L (>89) mL/min POC Glucose (68-110) mg/dl Random Glucose 112 H D (74-106) mg/dL Calcium 7.9 L D (8.5-10.1) mg/dL Total Bilirubin (0.2-1.0) mg/dL AST (15-37) U/L ALT (10-53) U/L Alkaline Phosphatase (45-117) U/L Total Creatine Kinase (26-192) U/L CK-MB (CK-2) (0.5-3.6) ng/mL CK-MB (CK-2) % (0.0-4.0) % Troponin I (0.02-0.05) ng/mL Total Protein (6.4-8.2) g/dL Albumin (3.4-5.0) g/dL Lipase (73-393) U/L Ur Collection Type Urine Color (Yellw/Straw) Urine Clarity (Clear) Urine pH (5.0-8.5) Ur Specific [place] (1.002-1.035) Urine Protein (Neg-Trace) mg/dL Urine Glucose (UA) (Negative) mg/dL Urine Ketones (Negative) mg/dL Urine Occult Blood (Negative) Urine Nitrate (Negative) Urine Bilirubin (Negative) Urine Urobilinogen (Less than 2) mg/dL Ur Leukocyte Esterase (Negative) Micro UA Comment Ur Microscopic Review Urine Culture Comments Urine Collection Time hours Urine Opiates Screen (Neg) Ur Barbiturates Screen (Neg) Ur Amphetamines Screen (Neg) U Benzodiazepines Scrn (Neg) Urine Cocaine Screen (Neg) U Cannabinoids Screen (Neg) Imaging Data Radiologist's impression: Abdomen/Pelvis CT 01/13/18 08:11 CONCLUSION: Mild inflammatory changes involving the right colon. Discharge Plan Discharge Disposition Patient Disposition: 01 Discharge Home Discharge Condition Condition: Stable Discharge Order Discharge Orders: Discharge Order (Routine); Ordered 01/14/18 Ordered By: Lj Chavarria Discharge Details Anticipated Discharge Date: 01/14/18 Discharge Comment: Okay to discharge home after she tolerates lunch without any recurrent nausea or vomiting Physicians Team ED Provider: Rafael Duffy Primary Care Provider: Anastasiia Maria Attending Provider: [place] Status ED Status: Left Department Discharge Information Discharge Date/Time: 01/13/18 12:26
[2018-01-13 07:42] LABS: Baso # (Auto) 0.1 th/mm3 (0.0-0.2); Baso % (Auto) 0.6 % (0.0-2.0); Eos # (Auto) 0.3 th/mm3 (0.0-0.4); Eos % (Auto) 1.3 % (0.0-4.0); Hematocrit 48.9 % (35.0-46.0); Hemoglobin 16.3 gm/dL (11.6-15.3); Lymph # (Auto) 2.9 th/mm3 (1.0-4.8); Lymph % (Auto) 14.5 % (9.0-44.0); Mean Corpuscular HGB Conc 33.3 % (32.0-36.0); Mean Corpuscular Hemoglobin 29.8 pg (27.0-34.0); Mean Corpuscular Volume 89.4 fL (80.0-100.0); Mean Platelet Volume 9.9 fL (7.0-11.0); Mono # (Auto) 0.5 th/mm3 (0.0-0.9); Mono % (Auto) 2.4 % (0.0-8.0); Neut # (Auto) 16.2 th/mm3 (1.8-7.7); Neut % (Auto) 81.2 % (16.0-70.0); Platelet Count 365 th/mm3 (150-450); Red Blood Count 5.47 mil/mm3 (4.00-5.30); Red Cell Distribution Width 13.9 % (11.6-17.2)
[2018-01-13 07:53] LABS: Chloride 108 meq/L (98-107); Potassium 3.9 meq/L (3.5-5.1); Sodium 140 meq/L (136-145)
[2018-01-13 07:57] LABS: Albumin 4.2 g/dL (3.4-5.0); Anion Gap 13 meq/L (5-15); Calcium 9.4 mg/dL (8.5-10.1); Carbon Dioxide 19.5 meq/L (21.0-32.0); Lipase 173 U/L (73-393)
[2018-01-13 07:58] LABS: Blood Urea Nitrogen 10 mg/dL (7-18); Glucose,Random 276 mg/dL (74-106)
[2018-01-13 08:00] LABS: Alanine Aminotransferase 29 U/L (10-53); Aspartate Aminotransferase 16 U/L (15-37); Glomerular Filtration Rate 58 mL/min (>89)
[2018-01-13 08:03] LABS: Alkaline Phosphatase 110 U/L (45-117); Platelet Estimate Normal (Normal); Platelet Morphology Normal (Normal); RBC Morphology Normal (Normal)
--- NOTE | 2018-01-13 08:51 | CT ---
EXAM DATE: 01/13/2018 8:37 AM EST AGE/SEX: 52 years / Female INDICATIONS: Epigastric and right mid abdominal pain. Nausea and vomiting. WBC = 20.0 CLINICAL DATA: This is the patient's initial encounter. Patient reports that signs and symptoms have been present for 1 day and indicates a pain score of 7/10. MEDICAL/SURGICAL HISTORY: Cardiovascular disease. Diabetes. Colon resection. Coronary artery stent. section. Hysterectomy. Cholecystectomy. ORAL CONTRAST: No oral contrast ingested. RADIATION DOSE: 10.43 CTDI (mGy) COMPARISON: [facility], CT ABDOMEN & PELVIS W CONTRAST, 01/09/2018. . TECHNIQUE: Multiple contiguous axial images were obtained through the abdomen and pelvis following b olus infusion of 90 ml Omnipaque 350 (iohexol) nonionic water-soluble contrast as a single exam dos e. No oral contrast ingested. Using automated exposure control and adjustment of the mA and/or kV ac cording to patient size, radiation dose was kept as low as reasonably achievable to obtain optimal di agnostic quality images. DICOM format image data is available electronically for review and comparis on. FINDINGS: Lower Lungs: The visualized lower lungs are clear. Liver: The liver has a homogeneous density without space-occupying lesion. There is no dilation of th e biliary tree. Spleen: Homogeneous density without enlargement. Pancreas: Unremarkable without mass or calcification. Kidneys: Normal in size and shape. No evidence of mass or hydronephrosis. Adrenal Glands: Unremarkable. Aorta: The aorta and proximal iliac vessels are grossly unremarkable without aneurysmal dilation. Bowel/Mesentery: There is mild concentric wall thickening involving the descending colon with slight ly increased mucosal enhancement. The appearance would be most consistent with colitis. Rectal anasto mosis is noted. Occasional distal colonic diverticula. No abnormal small bowel dilatation. Abdominal Wall: Intact. Retroperitoneum: No evidence of adenopathy in the retrocrural, para-aortic, or deep pelvic regions. Bladder: Contours are smooth. Reproductive Organs: No abnormal masses or calcifications seen. Inguinal: The inguinal region is unremarkable without evidence of adenopathy. Bony Structures: Unremarkable. CONCLUSION: Mild inflammatory changes involving the right colon. Electronically signed by: Tera Beebe MD 01/13/2018 8:49 AM EST
[2018-01-13 09:17] LABS: Bilirubin,Urine Negative (Negative); Clarity,Urine Clear (Clear); Color,Urine Yellow (Yellw/Straw); Glucose,Urine (UA) 250 mg/dL (Negative); Leukocyte Esterase,Urine Negative (Negative); Nitrite,Urine Negative (Negative); PH,Urine 6.5 (5.0-8.5); Urobilinogen,Urine 0.2 mg/dL (Less than 2)
[2018-01-13 09:20] LABS: Collection Time,Urine 905 hours
[2018-01-13] MEDS ORDERED: Ketorolac Inj 30 MG/ML (IVP) Vial IV.PUSH ONE (10:05)
[2018-01-13 10:28] LABS: Amphetamine Screen,Urine Neg (Neg); Barbiturate Screen,Urine Neg (Neg); Cannabinoid Screen,Urine Pos (Neg); Cocaine Screen,Urine Neg (Neg)
[2018-01-13 10:51] LABS: Opiate Screen,Urine Neg (Neg)
[2018-01-13] MEDS ORDERED: Dextrose 50% in Water 50 ML Vial IV.PUSH PRN (11:31)
[2018-01-13] MEDS ORDERED: Bisacodyl 10 MG Supp RECTAL PRN (11:31)
--- NOTE | 2018-01-13 11:52 | P.HP ---
History of Present Illness Primary Care Physician: Anastasiia Maria MD Chief Complaint: Nausea vomiting History of Present Illness: 52-year-old female with known history of hyperlipidemia, coronary artery disease, diabetes, marijuana abuse who presented to the hospital for evaluation of acute onset of nausea vomiting, abdominal pain. It was difficult to obtain information from the patient because she appears to be derailing, very histrionic, not forthcoming with answers. The patient states that she is in a normal state of health until 330 this morning when she had acute onset of nausea, vomiting and abdominal pain. Patient indicates that her abdominal pain is located in the left lower quadrant the pain is severe. She states that she has had intractable nausea and vomiting, loose stools. Patient came to emergency department for evaluation and is undergone multiple medication administrations to help relieve her symptoms to include Zofran, Phenergan, Protonix, Toradol, Ativan, Bentyl without any relief. Workup was done which did show leukocytosis which appears to be secondary to dehydration. Patient does have some mild metabolic acidosis, likely from nausea vomiting. CT scan was done of the abdomen which indicated some possible mild inflammatory process in the right colon, however patient's pain is in the left lower quadrant. Patient has no palpable tenderness over the area and which was noted in the CT scan. The patient symptoms were unable to be controlled and managed in the emergency department and was recommended by the ER physician that the patient be observed in the hospital for further evaluation and management. Patient does indicate that she has a chronic history of these symptoms to include the abdominal pain, nausea and vomiting dating back at least 8 years. She indicates that she cannot drink alcohol because she has had previous pancreatitis. Patient drug screen does indicate marijuana use. However patient states that she has not smoked any marijuana in 3 weeks because of the nausea vomiting. - Diagnosis (1) Nausea & vomiting (2) Leukocytosis (3) Abdominal pain Review of Systems All other systems reviewed negative except as stated in HPI Gastrointestinal: Reports abdominal pain, Reports loose stools, Reports nausea, Reports vomiting PMFSH - History History Provided By: Patient - Medical History Medical History: Medical History (Last Reviewed 01/13/18 @ 11:42 by ALICIA Mayorga) CAD (coronary artery disease) Diabetes High cholesterol - Surgical History Surgical History: Surgical History (Last Updated 01/13/18 @ 11:43 by ALICIA Mayorga) History of cardiac catheterization History of tubal ligation H/O heart artery stent H/O lumpectomy H/O resection of large bowel H/O: H/O: hysterectomy History of cholecystectomy - Family History Family History: Family History (Last Updated 01/13/18 @ 11:44 by ALICIA Mayorga) Other No pertinent family history - Tobacco History Second Hand Smoke Exposure: No Tobacco Use In Past 30 Days: No Smoking Status: Never smoker Tobacco Type: Cigarettes - Alcohol History How Often Do You Have a Drink Containing Alcohol: Never - Substance Use History Substance History: No History of Abuse - Immunization History Tetanus Immunization: Unsure Medications and Allergies Allergies Allergy/AdvReac Type Severity Reaction Status Date / Time acetaminophen Allergy Severe Itching Verified 01/13/18 07:16 hydrocodone Allergy Severe ITCHING Verified 01/13/18 07:16 lactose Allergy Severe Gastrointestinal Verified 01/13/18 07:16 Upset oxycodone Allergy Severe Itching Verified 01/13/18 07:16 prochlorperazine Allergy Severe Hallucinati Verified 01/13/18 07:16 ons propoxyphene Allergy Severe Itching Verified 01/13/18 07:16 Home Medications Medication Instructions Recorded Confirmed Type atorvastatin 40 mg PO DAILY 01/09/18 01/13/18 History sitagliptin [Januvia] 50 mg PO DAILY 01/09/18 01/13/18 History ticagrelor [Brilinta] 90 mg PO BID 01/09/18 01/13/18 History Exam Vital signs: Vital Signs 01/13/18 07:00 01/13/18 07:08 01/13/18 10:59 Temperature 97.5 F L Pulse Rate 86 78 80 Respiratory Rate 16 16 20 Blood Pressure 173/99 H 157/83 H Pulse Oximetry 97 99 100 Intake & Output 01/12/18 01/13/18 01/13/18 18:59 06:59 18:59 Intake Total 1000 / 1000 Balance 1000 / 1000 Weight 74 kg Intake: IV 1000 / 1000 NS Inj 1,000 ML @ Wide Open IV. 1000 / 1000 SIG BOLUS ONE Rx#:[id number] Narrative: GENERAL: Well-developed, well-nourished, in no acute distress. alert and orientated HEENT: Head is normocephalic without any lesions or masses noted. Facial features are symmetric. Eyes: Pupils equal round reactive to light. Extraocular muscles are intact. Conjunctivae were clear. Oropharyngeal: Pharynx without any erythema edema. Tongue is midline without deviation. Buccal mucosa is moist without any masses or lesions NECK: Supple without any masses. Trachea midline no deviation. No JVD, no bruits are appreciated CARDIAC: Regular rhythm, regular rate. S1/S2 are heard. No murmurs gallops or rubs. LUNGS: Clear to auscultation bilaterally. No wheeze, rhonchi or rales. No use of accessory muscles on inspiration or expiration. ABDOMEN: Soft, unable to have any significant direct palpable tenderness of the abdomen. Nondistended. Bowel sounds heard in all 4 quadrants. No organomegaly or masses. Negative rebound, negative guarding EXTREMITIES: No edema, pulses are equal bilaterally. No cyanosis or clubbing NEUROLOGY: Patient appears to be very dramatic, histrionic, derailing with questions and answers.. Cranial nerves II through XII grossly intact. Muscle strength 5/5 in upper and lower extremities bilaterally. Deep tendon reflexes are 2+ in upper and lower extremities bilaterally. Results - Labs CBC & Chem 7: 01/13/18 07:30 01/13/18 07:30 Labs: Laboratory Results - last 24 hr 01/13/18 01/13/18 01/13/18 07:30 07:30 09:05 CBC w Diff Slide review pending WBC 20.0 H RBC 5.47 H Hgb 16.3 H Hct 48.9 H MCV 89.4 MCH 29.8 MCHC 33.3 RDW 13.9 Plt Count 365 D MPV 9.9 Neut % (Auto) 81.2 H Lymph % (Auto) 14.5 Jay % (Auto) 2.4 Eos % (Auto) 1.3 Baso % (Auto) 0.6 Neut # (Auto) 16.2 H Lymph # (Auto) 2.9 [place] # (Auto) 0.5 Eos # (Auto) 0.3 Baso # (Auto) 0.1 WBC Differential . Diff Scan Auto diff confirmed Differential Comment . Platelet Estimate Normal Platelet Morphology Normal RBC Morphology Normal Sodium 140 Potassium 3.9 Chloride 108 H Carbon Dioxide 19.5 L Anion Gap 13 BUN 10 Creatinine 1.00 Estimated GFR 58 L Random Glucose 276 H Calcium 9.4 Total Bilirubin 0.3 AST 16 ALT 29 Alkaline Phosphatase 110 Total Protein 8.0 D Albumin 4.2 Lipase 173 Ur Collection Type Urine Color Urine Clarity Urine pH Ur Specific [place] Urine Protein Urine Glucose (UA) Urine Ketones Urine Occult Blood Urine Nitrate Urine Bilirubin Urine Urobilinogen Ur Leukocyte Esterase Micro UA Comment Ur Microscopic Review Urine Culture Comments Urine Collection Time Urine Opiates Screen Neg Ur Barbiturates Screen Neg Ur Amphetamines Screen Neg U Benzodiazepines Scrn Neg Urine Cocaine Screen Neg U Cannabinoids Screen Pos H 01/13/18 09:05 CBC w Diff WBC RBC Hgb Hct MCV MCH MCHC RDW Plt Count MPV Neut % (Auto) Lymph % (Auto) [place] % (Auto) Eos % (Auto) Baso % (Auto) Neut # (Auto) Lymph # (Auto) [place] # (Auto) Eos # (Auto) Baso # (Auto) WBC Differential Diff Scan Differential Comment Platelet Estimate Platelet Morphology RBC Morphology Sodium Potassium Chloride Carbon Dioxide Anion Gap BUN Creatinine Estimated GFR Random Glucose Calcium Total Bilirubin AST ALT Alkaline Phosphatase Total Protein Albumin Lipase Ur Collection Type Clean catch Urine Color Yellow Urine Clarity Clear Urine pH 6.5 Ur Specific [place] 1.010 Urine Protein Negative Urine Glucose (UA) 250 H Urine Ketones Negative Urine Occult Blood Negative Urine Nitrate Negative Urine Bilirubin Negative Urine Urobilinogen 0.2 Ur Leukocyte Esterase Negative Micro UA Comment Culture not ind Ur Microscopic Review Microscopic reviewed Urine Culture Comments Culture not ind Urine Collection Time 905 Urine Opiates Screen Ur Barbiturates Screen Ur Amphetamines Screen U Benzodiazepines Scrn Urine Cocaine Screen U Cannabinoids Screen - Imaging Impressions Abdomen/Pelvis CT 01/13/18 08:11 CONCLUSION: Mild inflammatory changes involving the right colon. Caprini VTE Risk Assessment Caprini VTE Risk Assessment: No/Low Risk (score <= 1) Caprini Risk Assessment Model: Point Value = 1 Point Value = 2 Point Value = 3 Point Value = 5 Age 41-60 Minor surgery BMI > 25 kg/m2 Swollen legs Varicose veins or History of unexplained or recurrent spontaneous Oral contraceptives or hormone replacement Sepsis (< 1 month) Serious lung disease, including pneumonia (< 1 month) Abnormal pulmonary function Acute myocardial infarction Congestive heart failure (< 1 month) History of inflammatory bowel disease Medical patient at bed rest Age 61-74 Arthroscopic surgery Major open surgery (> 45 min) Laparoscopic surgery (> 45 min) Malignancy Confined to bed (> 72 hours) Immobilizing plaster cast Central venous access Age >= 75 History of VTE Family history of VTE Factor V Leiden Prothrombin [id number] Lupus anticoagulant Anticardiolipin antibodies Elevated serum homocysteine Heparin-induced thrombocytopenia Other congenital or acquired thrombophilia Stroke (< 1 month) Elective arthroplasty Hip, pelvis, or leg fracture Acute spinal cord injury (< 1 month) Prophylaxis Regimen: Total Risk Factor Score Risk Level Prophylaxis Regimen 0-1 Low Early ambulation 2 Moderate Order ONE of the following: *Sequential Compression Device (SCD) *Heparin 5000 units SQ BID 3-4 Higher Order ONE of the following medications: *Heparin 5000 units SQ TID *Enoxaparin/Lovenox 40 mg SQ daily (WT < 150 kg, CrCl > 30 mL/min) *Enoxaparin/Lovenox 30 mg SQ daily (WT < 150 kg, CrCl > 10-29 mL/min) *Enoxaparin/Lovenox 30 mg SQ BID (WT < 150 kg, CrCl > 30 mL/min) AND/OR *Sequential Compression Device (SCD) 5 or more Highest Order ONE of the following medications: *Heparin 5000 units SQ TID (Preferred with Epidurals) *Enoxaparin/Lovenox 40 mg SQ daily (WT < 150 kg, CrCl > 30 mL/min) *Enoxaparin/Lovenox 30 mg SQ daily (WT < 150 kg, CrCl > 10-29 mL/min) *Enoxaparin/Lovenox 30 mg SQ BID (WT < 150 kg, CrCl > 30 mL/min) AND *Sequential Compression Device (SCD) Assessment and Plan - Assessment (1) Nausea & vomiting Code(s): R11.2 - Nausea with vomiting, unspecified Status: Acute (2) Leukocytosis Code(s): D72.829 - Elevated white blood cell count, unspecified Status: Acute (3) Abdominal pain Code(s): R10.9 - Unspecified abdominal pain Status: Acute - Plan Intractable nausea and vomiting with abdominal pain -Etiology is unclear at this time. It is multifactorial with the patient having chronic recurrent nausea vomiting, possible diabetic gastroparesis, possible marijuana cyclic vomiting, possible food poisoning, possible angina variant. -Patient does have increased cardiac risk factors with age, hyperlipidemia, coronary artery disease, diabetes -Trend cardiac enzymes and EKGs to rule out any acute coronary event -Continue Zofran, Reglan as needed -Continue IV fluids -Pain control with Bentyl and Toradol -Start clear liquid diet and advance as tolerated -CT scan indicates mild inflammatory changes involving the right colon -Start Cipro and Flagyl prophylactically -If patient does not improve with treatment, may need to perform gastric emptying study Leukocytosis -CBC appears to have signs of volume depletion and concentration -Continue monitor CBC Diabetes -Accu-Cheks with sliding scale insulin Hyperlipidemia, heart disease -Continue home medications DVT prevention -Sequential compression devices
[2018-01-13] MEDS ORDERED: Insulin NovoLOG Aspart Correctional Sugar Inj SQ SCH (12:00)
[2018-01-13 12:04] LABS: Creatine Kinase 91 U/L (26-192)
[2018-01-13] MEDS: Sod Chloride 0.9% Inj 1,000 ML IV.CONT SCH (12:42)
[2018-01-13] MEDS: Ciprofloxacin 400 MG/200 ML 400 MG/200 ML PIGGYBACK IV.SIG SCH (12:43)
[2018-01-13] MEDS: Insulin NovoLOG Aspart Correctional Sugar Inj SQ SCH ×3 (12:46→21:56)
[2018-01-13] MEDS: Ketorolac Inj 30 MG/ML (IVP) Vial IV.PUSH PRN (16:03)
[2018-01-13 18:31] LABS: Creatine Kinase 122 U/L (26-192)
[2018-01-13] MEDS: Senna/Docusate Sodium 8.6/50 MG Tablet PO SCH (21:57)
[2018-01-14] MEDS: Ketorolac Inj 30 MG/ML (IVP) Vial IV.PUSH PRN ×2 (00:10→06:10)
[2018-01-14] MEDS: Ciprofloxacin 400 MG/200 ML 400 MG/200 ML PIGGYBACK IV.SIG SCH (00:12)
[2018-01-14] MEDS: Sod Chloride 0.9% Inj 1,000 ML IV.CONT SCH ×2 (00:14→11:34)
[2018-01-14 01:34] VITALS: O2SAT 96
[2018-01-14 07:36] LABS: Baso # (Auto) 0.1 th/mm3 (0.0-0.2); Baso % (Auto) 0.8 % (0.0-2.0); Eos # (Auto) 0.1 th/mm3 (0.0-0.4); Eos % (Auto) 0.8 % (0.0-4.0); Hemoglobin 12.8 gm/dL (11.6-15.3); Lymph # (Auto) 2.6 th/mm3 (1.0-4.8); Lymph % (Auto) 22.6 % (9.0-44.0); Mean Corpuscular Hemoglobin 29.5 pg (27.0-34.0); Mean Corpuscular Volume 89.6 fL (80.0-100.0); Mean Platelet Volume 9.5 fL (7.0-11.0); Mono # (Auto) 0.6 th/mm3 (0.0-0.9); Neut # (Auto) 8.1 th/mm3 (1.8-7.7); Neut % (Auto) 70.8 % (16.0-70.0); Platelet Count 244 th/mm3 (150-450); Red Blood Count 4.35 mil/mm3 (4.00-5.30); Red Cell Distribution Width 13.9 % (11.6-17.2); White Blood Count 11.5 th/mm3 (4.0-11.0)
[2018-01-14 07:39] LABS: Potassium 3.2 meq/L (3.5-5.1)
[2018-01-14 07:50] LABS: Calcium 7.9 mg/dL (8.5-10.1); Carbon Dioxide 23.3 meq/L (21.0-32.0)
[2018-01-14 07:52] LABS: Creatine Kinase 352 U/L (26-192)
[2018-01-14] MEDS ORDERED: Pantoprazole Inj 40 MG Vial IV.PUSH SCH (08:00)
[2018-01-14 08:04] LABS: CKMB Percent 0.9 % (0.0-4.0); Creatine Kinase MB 3.2 ng/mL (0.5-3.6)
[2018-01-14 09:22] VITALS: BP 117/69; PULSE 76; RESP 18; TEMP 98.3
--- NOTE | 2018-01-14 10:29 | P.PNIM ---
Subjective Interval history: 52-year-old female who is seen examined today for follow-up on intractable nausea vomiting, abdominal pain. Patient states that she is doing much better at this time. She is tolerating liquid diet. Denies any current abdominal discomfort, denies any nausea or vomiting. Patient is very eager to go home. Discussed with her that she tolerates a diet, She should be able to go home. She is very excited about that. Vital signs are stable. Patient remains afebrile Physical Exam Vital signs: Vital Signs 01/13/18 10:59 01/13/18 12:00 01/13/18 15:42 Temperature 97.6 F Pulse Rate 80 78 75 Respiratory Rate 20 20 18 Blood Pressure 157/83 H 118/59 L 187/91 H Pulse Oximetry 100 97 97 01/13/18 20:00 01/14/18 00:00 01/14/18 08:00 Temperature 98.5 F 98.7 F 98.3 F Pulse Rate 90 94 H 76 Respiratory Rate 16 16 18 Blood Pressure 131/60 102/55 L 117/69 Pulse Oximetry 97 96 96 Intake & Output 01/13/18 01/14/18 01/14/18 18:59 06:59 18:59 Intake Total 1300 / 1300 2300 / 2300 Balance 1300 / 1300 2300 / 2300 Weight 74 kg 73.1 kg Intake: IV 1300 / 1300 1300 / 1300 NS Inj 1,000 ML @ 100 mls/hr IV 1000 / 1000 .CONT .Q10H LEDY Rx#:[id number] Cipro 400 MG/200 ML Inj 400 mg 200 / 200 200 / 200 In 200 ml @ 200 mls/hr IV.SIG Q12H LEDY Rx#:[id number] NS Inj 1,000 ML @ Wide Open IV. 1000 / 1000 SIG BOLUS ONE Rx#:[id number] Flagyl 500 MG Inj 100 ML @ 100 100 / 100 100 / 100 mls/hr IV.SIG Q8H LEDY Rx#: [id number] Oral 1000 / 1000 Other: # Voids 5 3 Date of Last Bowel Movement 01/13/18 01/14/18 # Bowel Movements 1 1 Narrative: GENERAL: Well-developed, well-nourished, in no acute distress. alert and orientated HEENT: Head is normocephalic without any lesions or masses noted. Facial features are symmetric. Eyes: Extraocular muscles are intact. Conjunctivae were clear. NECK: Supple without any masses. Trachea midline no deviation. No JVD, CARDIAC: Regular rhythm, regular rate. S1/S2 are heard. No murmurs gallops or rubs. LUNGS: Clear to auscultation bilaterally. No wheeze, rhonchi or rales. No use of accessory muscles on inspiration or expiration. ABDOMEN: Soft, nontender. Nondistended. Bowel sounds heard in all 4 quadrants. No organomegaly or masses. Negative rebound, negative guarding EXTREMITIES: No edema, pulses are equal bilaterally. No cyanosis or clubbing NEUROLOGY: Mood and affect appear appropriate. Cranial nerves II through XII grossly intact. Moving all extremities, speech is clear Results - Labs CBC & Chem 7: 01/14/18 06:25 01/14/18 06:25 Laboratory Results - last 24 hr 01/13/18 01/13/18 01/13/18 07:30 09:05 16:54 CBC w Diff WBC RBC Hgb Hct MCV MCH MCHC RDW Plt Count MPV Neut % (Auto) Lymph % (Auto) [place] % (Auto) Eos % (Auto) Baso % (Auto) Neut # (Auto) Lymph # (Auto) [place] # (Auto) Eos # (Auto) Baso # (Auto) WBC Differential Differential Comment Sodium Potassium Chloride Carbon Dioxide Anion Gap BUN Creatinine Estimated GFR POC Glucose 200 H Random Glucose Calcium Total Creatine Kinase 91 CK-MB (CK-2) CK-MB (CK-2) % Troponin I Less than 0.02 L Urine Opiates Screen Neg Ur Barbiturates Screen Neg Ur Amphetamines Screen Neg U Benzodiazepines Scrn Neg Urine Cocaine Screen Neg U Cannabinoids Screen Pos H 01/13/18 01/13/18 01/14/18 17:56 21:54 06:25 CBC w Diff WBC RBC Hgb Hct MCV MCH MCHC RDW Plt Count MPV Neut % (Auto) Lymph % (Auto) [place] % (Auto) Eos % (Auto) Baso % (Auto) Neut # (Auto) Lymph # (Auto) [place] # (Auto) Eos # (Auto) Baso # (Auto) WBC Differential Differential Comment Sodium Potassium Chloride Carbon Dioxide Anion Gap BUN Creatinine Estimated GFR POC Glucose 128 H Random Glucose Calcium Total Creatine Kinase 122 352 H CK-MB (CK-2) 3.2 CK-MB (CK-2) % 0.9 Troponin I Less than 0.02 L Less than 0.02 L Urine Opiates Screen Ur Barbiturates Screen Ur Amphetamines Screen U Benzodiazepines Scrn Urine Cocaine Screen U Cannabinoids Screen 01/14/18 01/14/18 06:25 06:25 CBC w Diff Auto diff final WBC 11.5 H RBC 4.35 Hgb 12.8 D Hct 39.0 MCV 89.6 MCH 29.5 MCHC 33.0 RDW 13.9 Plt Count 244 D MPV 9.5 Neut % (Auto) 70.8 H Lymph % (Auto) 22.6 [place] % (Auto) 5.0 Eos % (Auto) 0.8 Baso % (Auto) 0.8 Neut # (Auto) 8.1 H Lymph # (Auto) 2.6 [place] # (Auto) 0.6 Eos # (Auto) 0.1 Baso # (Auto) 0.1 WBC Differential . Differential Comment . Sodium 142 Potassium 3.2 L Chloride 110 H Carbon Dioxide 23.3 Anion Gap 9 BUN 9 Creatinine 0.75 Estimated GFR 81 L POC Glucose Random Glucose 112 H D Calcium 7.9 L D Total Creatine Kinase CK-MB (CK-2) CK-MB (CK-2) % Troponin I Urine Opiates Screen Ur Barbiturates Screen Ur Amphetamines Screen U Benzodiazepines Scrn Urine Cocaine Screen U Cannabinoids Screen Assessment and Plan - Assessment (1) Nausea & vomiting Code(s): R11.2 - Nausea with vomiting, unspecified Status: Acute (2) Leukocytosis Code(s): D72.829 - Elevated white blood cell count, unspecified Status: Acute (3) Abdominal pain Code(s): R10.9 - Unspecified abdominal pain Status: Acute - Plan Intractable nausea and vomiting with abdominal pain, resolved -Etiology is unclear at this time. It is multifactorial with the patient having chronic recurrent nausea vomiting, possible diabetic gastroparesis, marijuana cyclic vomiting, food poisoning, angina variant. -Patient does have increased cardiac risk factors with age, hyperlipidemia, coronary artery disease, diabetes -Patient was ruled out for acute coronary event with serial cardiac enzymes remain negative, serial EKGs reviewed by myself shows sinus rhythm without any changes -Continue Phenergan, Reglan as needed -Continue IV fluids -Pain control with Bentyl and Toradol -Advance diet as tolerated -CT scan indicates mild inflammatory changes involving the right colon -Continue Cipro and Flagyl prophylactically Leukocytosis, resolved -CBC appears to have signs of volume depletion and concentration -Continue monitor CBC Diabetes -Accu-Cheks with sliding scale insulin Hyperlipidemia, heart disease -Continue home medications DVT prevention -Sequential compression devices Discharge Planning: Discharge home in stable condition Activity: Ad nancy. Diet: Diabetic diet Medication per medication reconciliation Follow-up with primary medical doctor in 1 week
[2018-01-14] MEDS: Insulin NovoLOG Aspart Correctional Sugar Inj SQ SCH (11:34)
[2018-01-14] MEDS: Senna/Docusate Sodium 8.6/50 MG Tablet PO SCH (11:38)
--- NOTE | 2018-01-14 13:45 | ECG ---
Date Performed: 01/13/2018 Time Performed: 23:34:46 PTAGE: 52 years EKG: Sinus rhythm NORMAL ECG PREVIOUS TRACING : 01/13/2018 18.03 Since the previous tracing, no significant change noted DOCTOR: Krystian Amaya Interpretating Date/Time 01/14/2018 13:43:48
--- NOTE | 2018-01-14 13:46 | ECG ---
Date Performed: 01/13/2018 Time Performed: 18:03:12 PTAGE: 52 years EKG: Sinus rhythm NORMAL ECG PREVIOUS TRACING : 08/06/2017 01.29 Since the previous tracing, no significant change noted DOCTOR: Krystian Amaya Interpretating Date/Time 01/14/2018 13:44:01
== END 2018-01-14 12:41 | disposition home or self-care (01) ==
LOC: PHEDA 06:59 → PHED 06:59 → PH3 12:24
PROVIDERS: ADMIT Hospitalist; ATTEND Hospitalist
DX: I25.10 Atherosclerotic heart disease of native coronary artery without angina pectoris; Z95.5 Presence of coronary angioplasty implant and graft; E87.2 Acidosis; Z98.891 History of uterine scar from previous surgery; E78.00 Pure hypercholesterolemia, unspecified; Z88.5 Allergy status to narcotic agent; F12.10 Cannabis abuse, uncomplicated; F17.210 Nicotine dependence, cigarettes, uncomplicated; Z88.6 Allergy status to analgesic agent; Z79.02 Long term (current) use of antithrombotics/antiplatelets; Z90.49 Acquired absence of other specified parts of digestive tract; Z98.51 Tubal ligation status; E78.5 Hyperlipidemia, unspecified; Z79.84 Long term (current) use of oral hypoglycemic drugs; D72.829 Elevated white blood cell count, unspecified; Z90.710 Acquired absence of both cervix and uterus; R11.2 Nausea with vomiting, unspecified; E11.9 Type 2 diabetes mellitus without complications

== ENCOUNTER 2018-01-23 04:43 | Inpatient (IN) ==
[2018-01-23] MEDS ORDERED: Sod Chloride 0.9% Inj 1,000 ML IV.SIG ONE (04:59)
--- NOTE | 2018-01-23 05:12 | ED ---
HPI General Chief Complaint: Back Pain/Injury Stated Complaint: Back pain Time Seen by Provider: 01/23/18 04:59 Source: patient and family Mode of arrival: ambulatory Limitations: no limitations History of Present Illness HPI narrative: 52-year-old female presents to the emergency department for complaint of multiple episodes of vomiting and dry heaves clear sputum and gastric contents without coffee-ground emesis hematemesis or bilious some. Patient with chronic abdominal pain has been seen in the emergency department numerous times for same complaint also has history of diabetes hypertension CAD with stent placement is currently on Brilinta also has been evaluated for gastroparesis diabetes and marijuana induced hyperemesis syndrome. No fever. Patient states symptoms began at 12 midnight tonight. Patient has been seen numerous times for same complaint as recently as January 09 in January [address] abdomen pelvis which revealed no acute process. Patient is status post cholecystectomy. Patient's had abdominal surgeries related to history of diverticulitis. Patient does not report any diarrhea melena or hematochezia. Patient does not report dysuria frequency urgency. Family member at bedside reports patient has the symptoms almost daily. Patient is not seen in the hospital daily. Patient has been referred to [facility] for chronic pain syndrome of unclear etiology. MD complaint: Reports abdominal pain and flank pain Onset (ago): hour(s) (onset since 12 mn) Pain Consistency: constant Location: Reports diffuse Severity: severe Severity scale (1-10): 8 Quality: Reports aching Radiation: Reports R flank Migration to: Reports RUQ, RLQ and R flank Relieving factors: nothing Exacerbating factors: nothing Context: Reports history of similar episodes (frequent visits for same); Denies foreign travel, possible food poisoning, sick contacts, recent antibiotic use, recent surgery/procedure and recent injury Associated symptoms: Reports denies other symptoms, nausea and vomiting; Denies diarrhea, fever, chills, constipation, dysuria, hematemesis, hematochezia, melena, hematuria, anorexia and syncope Treatments prior to arrival: Reports other (zofran); Denies NSAIDs, prescription analgesics and antacids Related Data Hx Last Menstrual Period: menopausal Patient : No Home Medications Medication Instructions Recorded Confirmed atorvastatin 40 mg PO DAILY 01/09/18 01/23/18 sitagliptin [Januvia] 50 mg PO DAILY 01/09/18 01/23/18 ticagrelor [Brilinta] 90 mg PO BID 01/09/18 01/23/18 Previous Rx's Medication Instructions Recorded promethazine 25 mg PO Q6H PRN #12 tab 01/14/18 Allergies Allergy/AdvReac Type Severity Reaction Status Date / Time acetaminophen Allergy Severe Itching Verified 01/13/18 07:16 hydrocodone Allergy Severe ITCHING Verified 01/13/18 07:16 lactose Allergy Severe Gastrointestinal Verified 01/13/18 07:16 Upset oxycodone Allergy Severe Itching Verified 01/13/18 07:16 prochlorperazine Allergy Severe Hallucinati Verified 01/13/18 07:16 ons propoxyphene Allergy Severe Itching Verified 01/13/18 07:16 Review of Systems ROS: all other systems reviewed are negative [facility] Medical History Medical History CAD (coronary artery disease) (Acute) Diabetes (Acute) High cholesterol (Acute) Surgical History Surgical History H/O heart artery stent (Acute) H/O lumpectomy (Acute) H/O resection of large bowel (Acute) H/O: (Acute) H/O: hysterectomy (Acute) History of cardiac catheterization (Acute) History of cholecystectomy (Acute) History of tubal ligation (Acute) Family History Family History Other No pertinent family history Social History Social History Substance History: Unable to Obtain Second Hand Smoke Exposure: No Smoking Status: Unknown if ever smoked Tobacco Type: Cigarettes How Often Do You Have a Drink Containing Alcohol: Never Recent Travel in [place] within the Last 8 Weeks: No Recent Out of Country Travel within the Last 8 Weeks: No Exam Narrative Exam Narrative: GENERAL: Well-nourished, well-developed patient. No respiratory distress crying and yelling out in pain appears to be in discomfort rocking back and forth on exam stretcher. SKIN: Focused skin assessment warm/mild diaphoresis. HEAD: Normocephalic. EYES: No scleral icterus. No injection or drainage. NECK: Supple, trachea midline. No JVD or lymphadenopathy. CARDIOVASCULAR: Increased regular rate and rhythm without murmurs, gallops, or rubs. RESPIRATORY: Breath sounds equal bilaterally. No accessory muscle use. GASTROINTESTINAL: Abdomen soft, diffusely tender to palpation, nondistended. MUSCULOSKELETAL: No cyanosis, or edema. BACK: Nontender without obvious deformity. Right CVA tenderness. Course Consultations Consultation #1: discussed with [facility] MD Dr Red -- will place as OBS for intractable vomiting flank pain dehydration chronic pain syndrome prior h/o gastroparesis and cannabis induced hyperemesis; r/o sirs Initial Documented Vital Signs Pulse Rate 134 H 01/23/18 04:49 Respiratory Rate 20 01/23/18 04:49 Blood Pressure 144/108 H 01/23/18 04:49 Pulse Oximetry 97 01/23/18 04:49 Last Documented Vital Signs Pulse Rate 106 H 01/23/18 06:21 Respiratory Rate 20 01/23/18 04:49 Blood Pressure 177/75 H 01/23/18 06:21 Pulse Oximetry 98 01/23/18 06:21 Medical Decision Making [facility] Narrative Medical decision making narrative: 52-year-old female presents to the emergency department for complaint of multiple episodes of vomiting and dry heaves clear sputum and gastric contents without coffee-ground emesis hematemesis or bilious some. Patient with chronic abdominal pain has been seen in the emergency department numerous times for same complaint also has history of diabetes hypertension CAD with stent placement is currently on Brilinta also has been evaluated for gastroparesis diabetes and marijuana induced hyperemesis syndrome. No fever. Patient states symptoms began at 12 midnight tonight. Patient has been seen numerous times for same complaint as recently as January 09 in January [address] abdomen pelvis which revealed no acute process. Patient is status post cholecystectomy. Patient's had abdominal surgeries related to history of diverticulitis. Patient does not report any diarrhea melena or hematochezia. Patient does not report dysuria frequency urgency. Family member at bedside reports patient has the symptoms almost daily. Patient is not seen in the hospital daily. Patient has been referred to [facility] for chronic pain syndrome of unclear etiology. Patient placed on teacher [facility] IV access obtained specimens collected and sent for resulting EKG ordered patient administered Reglan 10 mg IV Protonix 40 mg IV and normal saline bolus kept n.p.o. CT abdomen pelvis ordered Medical Screen Exam Complete: Yes Emergency Medical Condition: Yes Differential Diagnosis Differential Diagnosis: Abdominal pain, gastroparesis, uncontrolled diabetes, bowel obstruction, ileus, gastritis, choledocholithiasis, pancreatitis, renal colic, ischemic colitis, chronic pain syndrome, marijuana induced hyperemesis, intractable vomiting, dehydration, DKA, hyperglycemia, electrolyte disturbance, arrhythmia, ACS, dissection Medical Records Medical records reviewed: Yes I reviewed the patient's medical records. Lab Data Result diagrams: 01/23/18 05:20 01/23/18 05:20 Lab Results 01/23/18 01/23/18 01/23/18 Range/Units 05:20 05:20 05:20 CBC w Diff Auto diff final WBC 16.0 H (4.0-11.0) th/mm3 RBC 5.35 H (4.00-5.30) mil/mm3 Hgb 15.8 H (11.6-15.3) gm/dL Hct 47.4 H (35.0-46.0) % MCV 88.5 (80.0-100.0) fL MCH 29.5 (27.0-34.0) pg MCHC 33.3 (32.0-36.0) % RDW 14.2 (11.6-17.2) % Plt Count 329 D (150-450) th/mm3 MPV 9.1 (7.0-11.0) fL Neut % (Auto) 78.5 H (16.0-70.0) % Lymph % (Auto) 15.2 (9.0-44.0) % [place] % (Auto) 1.8 (0.0-8.0) % Eos % (Auto) 1.1 (0.0-4.0) % Baso % (Auto) 3.4 H (0.0-2.0) % Neut # (Auto) 12.6 H (1.8-7.7) th/mm3 Lymph # (Auto) 2.4 (1.0-4.8) th/mm3 [place] # (Auto) 0.3 (0.0-0.9) th/mm3 Eos # (Auto) 0.2 (0.0-0.4) th/mm3 Baso # (Auto) 0.5 H (0.0-0.2) th/mm3 WBC Differential . Differential Comment . PT 10.0 (9.8-11.6) sec INR 1.0 Ratio APTT 24.4 (23.4-31.7) sec Sodium (136-145) meq/L Potassium (3.5-5.1) meq/L Chloride (98-107) meq/L Carbon Dioxide (21.0-32.0) meq/L Anion Gap (5-15) meq/L BUN (7-18) mg/dL Creatinine (0.50-1.00) mg/dL Estimated GFR (>89) mL/min Random Glucose (74-106) mg/dL Lactic Acid 4.2 H* (0.4-2.0) mmol/L Calcium (8.5-10.1) mg/dL Magnesium (1.5-2.5) mg/dL Total Bilirubin (0.2-1.0) mg/dL AST (15-37) U/L ALT (10-53) U/L Alkaline Phosphatase (45-117) U/L Total Creatine Kinase (26-192) U/L Troponin I (0.02-0.05) ng/mL Total Protein (6.4-8.2) g/dL Albumin (3.4-5.0) g/dL Lipase (73-393) U/L 01/23/18 Range/Units 05:20 CBC w Diff WBC (4.0-11.0) th/mm3 RBC (4.00-5.30) mil/mm3 Hgb (11.6-15.3) gm/dL Hct (35.0-46.0) % MCV (80.0-100.0) fL MCH (27.0-34.0) pg MCHC (32.0-36.0) % RDW (11.6-17.2) % Plt Count (150-450) th/mm3 MPV (7.0-11.0) fL Neut % (Auto) (16.0-70.0) % Lymph % (Auto) (9.0-44.0) % [place] % (Auto) (0.0-8.0) % Eos % (Auto) (0.0-4.0) % Baso % (Auto) (0.0-2.0) % Neut # (Auto) (1.8-7.7) th/mm3 Lymph # (Auto) (1.0-4.8) th/mm3 [place] # (Auto) (0.0-0.9) th/mm3 Eos # (Auto) (0.0-0.4) th/mm3 Baso # (Auto) (0.0-0.2) th/mm3 WBC Differential Differential Comment PT (9.8-11.6) sec INR Ratio APTT (23.4-31.7) sec Sodium 139 (136-145) meq/L Potassium 3.7 (3.5-5.1) meq/L Chloride 106 (98-107) meq/L Carbon Dioxide 20.3 L (21.0-32.0) meq/L Anion Gap 13 (5-15) meq/L BUN 15 (7-18) mg/dL Creatinine 1.20 H (0.50-1.00) mg/dL Estimated GFR 47 L (>89) mL/min Random Glucose 272 H (74-106) mg/dL Lactic Acid (0.4-2.0) mmol/L Calcium 9.7 (8.5-10.1) mg/dL Magnesium 2.0 (1.5-2.5) mg/dL Total Bilirubin 0.4 (0.2-1.0) mg/dL AST 13 L (15-37) U/L ALT 27 (10-53) U/L Alkaline Phosphatase 98 (45-117) U/L Total Creatine Kinase 62 (26-192) U/L Troponin I Less than 0.02 L (0.02-0.05) ng/mL Total Protein 8.0 (6.4-8.2) g/dL Albumin 4.4 (3.4-5.0) g/dL Lipase 159 (73-393) U/L Imaging Data Radiologist's impression: Abdomen/Pelvis CT 01/23/18 04:59 CONCLUSION: 1. No acute abnormality. 2. Partial left hemicolectomy. 3. Scattered colonic diverticulosis without acute inflammation. 4. Prior cholecystectomy. Discharge Plan Discharge Disposition Patient Disposition: ED Admit(ED Internal Use Only) Discharge Condition Condition: Stable Discharge Details Diagnosis: Intractable nausea and vomiting, Acute right flank pain Physicians Team ED Provider: Abigail Godwin Primary Care Provider: Anastasiia Maria Rxs /Orders / Referrals /Forms Prescriptions: No Action atorvastatin 40 mg Tablet 40 mg PO DAILY RF: 0 sitagliptin [Januvia] 50 mg Tablet 50 mg PO DAILY RF: 0 ticagrelor [Brilinta] 90 mg Tablet 90 mg PO BID RF: 0 promethazine 25 mg Tablet 25 mg PO Q6H PRN (Reason: Nausea And Vomiting) Qty: 12 RF: 0 Status ED Status: With Doctor
[2018-01-23 05:30] LABS: Baso # (Auto) 0.5 th/mm3 (0.0-0.2); Baso % (Auto) 3.4 % (0.0-2.0); Eos # (Auto) 0.2 th/mm3 (0.0-0.4); Eos % (Auto) 1.1 % (0.0-4.0); Hematocrit 47.4 % (35.0-46.0); Hemoglobin 15.8 gm/dL (11.6-15.3); Lymph # (Auto) 2.4 th/mm3 (1.0-4.8); Lymph % (Auto) 15.2 % (9.0-44.0); Mean Corpuscular HGB Conc 33.3 % (32.0-36.0); Mean Corpuscular Hemoglobin 29.5 pg (27.0-34.0); Mean Corpuscular Volume 88.5 fL (80.0-100.0); Mean Platelet Volume 9.1 fL (7.0-11.0); Mono # (Auto) 0.3 th/mm3 (0.0-0.9); Mono % (Auto) 1.8 % (0.0-8.0); Neut # (Auto) 12.6 th/mm3 (1.8-7.7); Neut % (Auto) 78.5 % (16.0-70.0); Platelet Count 329 th/mm3 (150-450); Red Blood Count 5.35 mil/mm3 (4.00-5.30); Red Cell Distribution Width 14.2 % (11.6-17.2)
[2018-01-23 05:37] LABS: Chloride 106 meq/L (98-107); Potassium 3.7 meq/L (3.5-5.1); Sodium 139 meq/L (136-145)
[2018-01-23 05:40] LABS: Calcium 9.7 mg/dL (8.5-10.1)
[2018-01-23 05:41] LABS: Activated Partial Thrombo Time 24.4 sec (23.4-31.7); Albumin 4.4 g/dL (3.4-5.0); Anion Gap 13 meq/L (5-15); Blood Urea Nitrogen 15 mg/dL (7-18); Carbon Dioxide 20.3 meq/L (21.0-32.0); Glucose,Random 272 mg/dL (74-106); Lipase 159 U/L (73-393)
[2018-01-23 05:44] LABS: Alanine Aminotransferase 27 U/L (10-53); Aspartate Aminotransferase 13 U/L (15-37); Glomerular Filtration Rate 47 mL/min (>89)
[2018-01-23 05:46] LABS: Alkaline Phosphatase 98 U/L (45-117)
[2018-01-23 05:53] LABS: Creatine Kinase 62 U/L (26-192)
[2018-01-23] MEDS ORDERED: Piperacil/Tazo 4.5 GM Premix 4.5 GM/100 ML BAG IV.SIG ONE (05:54)
[2018-01-23] MEDS ORDERED: Sod Chloride 0.9% Inj 1,000 ML IV.SIG SCH (06:00)
[2018-01-23] MEDS ORDERED: Ketorolac Inj 30 MG/ML (IVP) Vial IV.PUSH ONE (06:15)
[2018-01-23] MEDS ORDERED: Morphine Inj 4 MG/ML Vial IV.PUSH ONE (06:18)
--- NOTE | 2018-01-23 06:22 | CT ---
EXAM DATE: 01/23/2018 6:07 AM EST AGE/SEX: 52 years / Female INDICATIONS: Right abdominal and back pain. Nausea and vomiting. CLINICAL DATA: This is the patient's initial encounter. Patient reports that signs and symptoms have been present for 1 day and indicates a pain score of 10/10. MEDICAL/SURGICAL HISTORY: Diabetes. Cardiovascular disease. Coronary artery stent. s ection. Colon resection. Tubal ligation. Hysterectomy. Cholecystectomy. ORAL CONTRAST: No oral contrast ingested. RADIATION DOSE: 9.98 CTDI (mGy) COMPARISON: [facility], CT ABDOMEN & PELVIS W CONTRAST, 01/13/2018. . TECHNIQUE: Multiple contiguous axial images were obtained through the abdomen and pelvis following b olus infusion of 95 ml Omnipaque 350 (iohexol) nonionic water-soluble contrast as a single exam dos e. No oral contrast ingested. Using automated exposure control and adjustment of the mA and/or kV ac cording to patient size, radiation dose was kept as low as reasonably achievable to obtain optimal di agnostic quality images. DICOM format image data is available electronically for review and comparis on. FINDINGS: Lower Lungs: The visualized lower lungs are clear. Liver: The liver has a homogeneous density without space-occupying lesion. There is no dilation of th e biliary tree. Gallbladder surgically absent. Spleen: Homogeneous density without enlargement. Pancreas: Unremarkable without mass or calcification. Kidneys: Normal in size and shape. No evidence of mass or hydronephrosis. Adrenal Glands: Unremarkable. Aorta: Scattered calcified atherosclerotic plaque without aneurysmal dilation. Bowel/Mesentery: Surgical clips at the rectosigmoid junction. A few scattered colonic diverticuli wi thout acute inflammation. The bowel loops are grossly unremarkable. The cecum and sigmoid colon have a normal configuration. Abdominal Wall: Intact. Retroperitoneum: No evidence of adenopathy in the retrocrural, para-aortic, or deep pelvic regions. Bladder: Contours are smooth. Reproductive Organs: No abnormal masses or calcifications seen. Inguinal: The inguinal region is unremarkable without evidence of adenopathy. Bony Structures: Degenerative lumbar spine. CONCLUSION: 1. No acute abnormality. 2. Partial left hemicolectomy. 3. Scattered colonic diverticulosis without acute inflammation. 4. Prior cholecystectomy. Electronically signed by: David Marie MD 01/23/2018 6:20 AM EST
[2018-01-23] MEDS ORDERED: Bisacodyl 10 MG Supp RECTAL PRN (06:42)
[2018-01-23] MEDS: Sod Chloride 0.9% Inj 1,000 ML IV.CONT SCH ×2 (07:16→17:43)
[2018-01-23 07:18] LABS: Bilirubin,Urine Negative (Negative); Clarity,Urine Clear (Clear); Color,Urine Yellow (Yellw/Straw); Glucose,Urine (UA) 100 mg/dL (Negative); Leukocyte Esterase,Urine Negative (Negative); Nitrite,Urine Negative (Negative); PH,Urine 6.5 (5.0-8.5); Urobilinogen,Urine 0.2 mg/dL (Less than 2)
[2018-01-23 07:24] LABS: Collection Time,Urine 658 hours; Squamous Epithelial Cell,Urine 0-5 /hpf (0-5)
[2018-01-23 07:29] LABS: Amphetamine Screen,Urine Neg (Neg); Barbiturate Screen,Urine Neg (Neg); Cannabinoid Screen,Urine Pos (Neg); Cocaine Screen,Urine Neg (Neg)
[2018-01-23 07:35] LABS: Opiate Screen,Urine Neg (Neg)
[2018-01-23] MEDS: Senna/Docusate Sodium 8.6/50 MG Tablet PO SCH ×2 (09:57→20:41)
[2018-01-23] MEDS: Morphine Inj 4 MG/ML Vial IV.PUSH PRN ×3 (10:28→20:43)
--- NOTE | 2018-01-23 12:36 | P.HP ---
History of Present Illness Primary Care Physician: Anastasiia Maria MD Chief Complaint: Abdominal pain, n/v History of Present Illness: This is a 52-year-old female patient with a known medical history of diabetes, hypertension, hyperlipidemia and bipolar depression who presented to the ED with complaints of continued abdominal pain, nausea and vomiting. Patient states over the last month she has been having continued abdominal pain, states that she has been in and out of the hospital without relief. She states that she was hospitalized in mid-December and at that time a CT abdomen/pelvis was done showing no acute issues. She was given Zofran and sent home. Patient also has had a history of CAD with history of cardiac stent placement x 3 this year, she follows with Dr. Vilchis, cardiology, in the outpatient setting. The last cardiac catheterization was in October of this year. She is on Brilinta. Follows closely with her primary care physician for her diabetes and hypertension control, she states she is recently been placed on metformin and since that time she has been having above symptoms of abdominal pain, nausea and vomiting as well as a subjective rash to her chest. It should also be noted that patient does smoke marijuana several times a day, she states that she has recently weaned herself off of this, thinking that maybe this will improve her symptoms. Since that time she has had increasing anxiety as well as she recently just lost her job. Patient has a history of bipolar depression , she does not currently follow with a psychiatrist, she does not currently take anything for her bipolar, she states that the marijuana was keeping her stable. Requested psychiatry to come evaluate patient she appears to be in a manic state at this time. Patient also complains of back pain localized in her right posterior area x 3 days, with a knot shes noticed with tenderness to palpation. No previous imaging done on this area. - Diagnosis (1) Leukocytosis (2) Abdominal pain (3) Intractable nausea and vomiting (4) Acute right flank pain Review of Systems All other systems reviewed negative except as stated in HPI PMFSH - History History Provided By: Patient - Medical History Medical History: Medical History (Last Reviewed 01/23/18 @ 12:45 by Ladonna Moura) CAD (coronary artery disease) Diabetes High cholesterol - Surgical History Surgical History: Surgical History (Last Reviewed 01/23/18 @ 12:45 by Ladonna Moura) H/O heart artery stent H/O lumpectomy H/O resection of large bowel H/O: H/O: hysterectomy History of cardiac catheterization History of cholecystectomy History of tubal ligation - Family History Family History: Family History (Last Reviewed 01/23/18 @ 12:45 by Ladonna Moura) Other No pertinent family history - Social History I have reviewed the patient's Social History: Yes - Tobacco History Second Hand Smoke Exposure: No Smoking Status: Unknown if ever smoked Tobacco Type: Cigarettes - Alcohol History How Often Do You Have a Drink Containing Alcohol: Never - Substance Use History Substance History: Unable to Obtain - Travel History Recent Travel in the [place] Within the Last 8 Weeks: No Recent Travel Out of the Country Within the Last 8 Weeks: No - Immunization History Tetanus Immunization: <5 Years Medications and Allergies Active Medications: Active Medications Al Hydroxide/Mg Hydroxide (Milk Of Magnesia Liq) 30 ml PO Q12H PRN PRN Reason: Mild Constipation Bisacodyl (Dulcolax Supp) 10 mg RECTAL DAILY PRN PRN Reason: SEVERE CONSITIPATION Sodium Chloride (Ns Inj) 1,000 mls @ 100 mls/hr IV.CONT .Q10H [facility] Last Admin: 01/23/18 07:16 Dose: 100 mls/hr Lactulose (Lactulose Liq) 30 ml PO DAILY PRN PRN Reason: SEVERE CONSITIPATION Metoclopramide HCl (Reglan Inj) 10 mg IV.PUSH Q8HR [facility]; Protocol Morphine Sulfate (Morphine Inj) 2 mg IV.PUSH Q4H PRN PRN Reason: PAIN 6-10 Last Admin: 01/23/18 10:28 Dose: 2 mg Ondansetron HCl (Zofran Inj) 4 mg IV.PUSH Q6H PRN PRN Reason: NAUSEA OR VOMITING Last Admin: 01/23/18 10:01 Dose: 4 mg Senna/Docusate Sodium (Adali-Colace) 1 tab PO BID LEDY Last Admin: 01/23/18 09:57 Dose: 1 tab Sennosides (Senokot) 17.2 mg PO Q12H PRN PRN Reason: Moderate Constipation Sodium Chloride (Ns Flush) 2 ml IV.FLUSH PRN PRN PRN Reason: FLUSH AFTER USING IV ACCESS Last Admin: 01/23/18 07:17 Dose: 2 ml Sodium Chloride (Ns Flush) 2 ml IV.FLUSH PRN PRN PRN Reason: FLUSH AFTER USING IV ACCESS Sodium Chloride (Ns Flush) 2 ml IV.FLUSH BID LEDY Last Admin: 01/23/18 10:30 Dose: 2 ml Trimethobenzamide HCl (Tigan Ing) 200 mg IM Q6H PRN PRN Reason: NAUSEA/VOMITING Allergies Allergy/AdvReac Type Severity Reaction Status Date / Time acetaminophen Allergy Severe Itching Verified 01/13/18 07:16 hydrocodone Allergy Severe ITCHING Verified 01/13/18 07:16 lactose Allergy Severe Gastrointestinal Verified 01/13/18 07:16 Upset oxycodone Allergy Severe Itching Verified 01/13/18 07:16 prochlorperazine Allergy Severe Hallucinati Verified 01/13/18 07:16 ons propoxyphene Allergy Severe Itching Verified 01/13/18 07:16 Home Medications Medication Instructions Recorded Confirmed Type atorvastatin 40 mg PO DAILY 01/09/18 01/23/18 History sitagliptin [Januvia] 50 mg PO DAILY 01/09/18 01/23/18 History ticagrelor [Brilinta] 90 mg PO BID 01/09/18 01/23/18 History Exam Vital signs: Vital Signs 01/23/18 04:49 01/23/18 06:21 01/23/18 07:17 Pulse Rate 134 H 106 H 97 H Respiratory Rate 20 16 Blood Pressure 144/108 H 177/75 H 183/85 H Pulse Oximetry 97 98 Intake & Output 01/22/18 01/23/18 01/23/18 18:59 06:59 18:59 Intake Total 2099 Balance 2099 Weight 72.7 kg Intake: IV 2099 Zosyn 4.5 GM Premix 4.5 gm In 100 / 100 100 ml @ 200 mls/hr IV.SIG ONCE ONE Rx#:[id number] NS Inj 1,000 ML @ 1000 mls/hr 1999 IV.SIG BOLUS LEDY Rx#:[id number] Narrative: GENERAL: Well-developed, well-nourished patient walking around in the halls, tearful, manic, histrionic. After several minutes, able to calm down and is complaint and controlled. SKIN: Warm and dry. No rash. HEAD: Normocephalic. Atraumatic. EYES: Pupils equal and round. No scleral icterus. No injection or drainage. ENT: No nasal bleeding or discharge. Mucous membranes pink and moist. NECK: Supple. Trachea midline. CARDIOVASCULAR: Regular rate and rhythm. S1, S2 noted. No murmur appreciated. RESPIRATORY: No accessory muscle use. Clear to auscultation. Breath sounds equal bilaterally. GASTROINTESTINAL: Abdomen soft, non-tender, nondistended. Normoactive bowel sounds x4. MUSCULOSKELETAL: Right posterior back at L1 area a palpable knot is noted with tenderness to palpation. Extremities without clubbing, cyanosis, or edema. NEUROLOGICAL: Awake and alert. No obvious cranial nerve deficits. Motor grossly within normal limits. 5/5 muscle strength in bilateral upper and lower extremities. Normal speech. PSYCHIATRIC: Appropriate mood and affect; insight and judgment normal. Results - Labs CBC & Chem 7: 01/23/18 05:20 01/23/18 05:20 Labs: Laboratory Results - last 24 hr 01/23/18 01/23/18 01/23/18 05:20 05:20 05:20 CBC w Diff Auto diff final WBC 16.0 H RBC 5.35 H Hgb 15.8 H Hct 47.4 H MCV 88.5 MCH 29.5 MCHC 33.3 RDW 14.2 Plt Count 329 D MPV 9.1 Neut % (Auto) 78.5 H Lymph % (Auto) 15.2 [place] % (Auto) 1.8 Eos % (Auto) 1.1 Baso % (Auto) 3.4 H Neut # (Auto) 12.6 H Lymph # (Auto) 2.4 [place] # (Auto) 0.3 Eos # (Auto) 0.2 Baso # (Auto) 0.5 H WBC Differential . Differential Comment . PT 10.0 INR 1.0 APTT 24.4 Sodium Potassium Chloride Carbon Dioxide Anion Gap BUN Creatinine Estimated GFR Random Glucose Lactic Acid 4.2 H* Calcium Magnesium Total Bilirubin AST ALT Alkaline Phosphatase Total Creatine Kinase Troponin I Total Protein Albumin Lipase Urine Color Urine Clarity Urine pH Ur Specific [place] Urine Protein Urine Glucose (UA) Urine Ketones Urine Occult Blood Urine Nitrate Urine Bilirubin Urine Urobilinogen Ur Leukocyte Esterase Ur Squamous Epith Cells Micro UA Comment Ur Microscopic Review Urine Culture Comments Urine Collection Time Urine Opiates Screen Ur Barbiturates Screen Ur Amphetamines Screen U Benzodiazepines Scrn Urine Cocaine Screen U Cannabinoids Screen 01/23/18 01/23/1818 05:20 06:58 06:58 CBC w Diff WBC RBC Hgb Hct MCV MCH MCHC RDW Plt Count MPV Neut % (Auto) Lymph % (Auto) [place] % (Auto) Eos % (Auto) Baso % (Auto) Neut # (Auto) Lymph # (Auto) [place] # (Auto) Eos # (Auto) Baso # (Auto) WBC Differential Differential Comment PT INR APTT Sodium 139 Potassium 3.7 Chloride 106 Carbon Dioxide 20.3 L Anion Gap 13 BUN 15 Creatinine 1.20 H Estimated GFR 47 L Random Glucose 272 H Lactic Acid Calcium 9.7 Magnesium 2.0 Total Bilirubin 0.4 AST 13 L ALT 27 Alkaline Phosphatase 98 Total Creatine Kinase 62 Troponin I Less than 0.02 L Total Protein 8.0 Albumin 4.4 Lipase 159 Urine Color Yellow Urine Clarity Clear Urine pH 6.5 Ur Specific [place] 1.010 Urine Protein Negative Urine Glucose (UA) 100 H Urine Ketones Negative Urine Occult Blood Negative Urine Nitrate Negative Urine Bilirubin Negative Urine Urobilinogen 0.2 Ur Leukocyte Esterase Negative Ur Squamous Epith Cells 0-5 Micro UA Comment Culture not ind Ur Microscopic Review Microscopic reviewed Urine Culture Comments Culture not ind Urine Collection Time 658 Urine Opiates Screen Neg Ur Barbiturates Screen Neg Ur Amphetamines Screen Neg U Benzodiazepines Scrn Neg Urine Cocaine Screen Neg U Cannabinoids Screen Pos H - Imaging Impressions Abdomen/Pelvis CT 01/23/18 04:59 CONCLUSION: 1. No acute abnormality. 2. Partial left hemicolectomy. 3. Scattered colonic diverticulosis without acute inflammation. 4. Prior cholecystectomy. Caprini VTE Risk Assessment Caprini VTE Risk Assessment: No/Low Risk (score <= 1) Caprini Risk Assessment Model: Point Value = 1 Point Value = 2 Point Value = 3 Point Value = 5 Age 41-60 Minor surgery BMI > 25 kg/m2 Swollen legs Varicose veins or History of unexplained or recurrent spontaneous Oral contraceptives or hormone replacement Sepsis (< 1 month) Serious lung disease, including pneumonia (< 1 month) Abnormal pulmonary function Acute myocardial infarction Congestive heart failure (< 1 month) History of inflammatory bowel disease Medical patient at bed rest Age 61-74 Arthroscopic surgery Major open surgery (> 45 min) Laparoscopic surgery (> 45 min) Malignancy Confined to bed (> 72 hours) Immobilizing plaster cast Central venous access Age >= 75 History of VTE Family history of VTE Factor V Leiden Prothrombin [id number] Lupus anticoagulant Anticardiolipin antibodies Elevated serum homocysteine Heparin-induced thrombocytopenia Other congenital or acquired thrombophilia Stroke (< 1 month) Elective arthroplasty Hip, pelvis, or leg fracture Acute spinal cord injury (< 1 month) Prophylaxis Regimen: Total Risk Factor Score Risk Level Prophylaxis Regimen 0-1 Low Early ambulation 2 Moderate Order ONE of the following: *Sequential Compression Device (SCD) *Heparin 5000 units SQ BID 3-4 Higher Order ONE of the following medications: *Heparin 5000 units SQ TID *Enoxaparin/Lovenox 40 mg SQ daily (WT < 150 kg, CrCl > 30 mL/min) *Enoxaparin/Lovenox 30 mg SQ daily (WT < 150 kg, CrCl > 10-29 mL/min) *Enoxaparin/Lovenox 30 mg SQ BID (WT < 150 kg, CrCl > 30 mL/min) AND/OR *Sequential Compression Device (SCD) 5 or more Highest Order ONE of the following medications: *Heparin 5000 units SQ TID (Preferred with Epidurals) *Enoxaparin/Lovenox 40 mg SQ daily (WT < 150 kg, CrCl > 30 mL/min) *Enoxaparin/Lovenox 30 mg SQ daily (WT < 150 kg, CrCl > 10-29 mL/min) *Enoxaparin/Lovenox 30 mg SQ BID (WT < 150 kg, CrCl > 30 mL/min) AND *Sequential Compression Device (SCD) Assessment and Plan - Assessment (1) Leukocytosis Code(s): D72.829 - Elevated white blood cell count, unspecified Status: Acute (2) Abdominal pain Code(s): R10.9 - Unspecified abdominal pain Status: Acute (3) Intractable nausea and vomiting Code(s): R11.2 - Nausea with vomiting, unspecified Status: Acute (4) Acute right flank pain Code(s): R10.9 - Unspecified abdominal pain Status: Acute - Plan This is a 52-year-old female patient with Abdominal pain, nausea and vomiting x 3 days History of gastroparesis -Patient states she is recently been placed on metformin 2 weeks ago, could be contributing to her above symptoms. -Has been using marijuana for her bipolar depression, recently stopped this several days ago. -Advised to stop using marijuana which could be contributing to her intractable nausea and vomiting. -Zofran available as needed. -Started on Protonix, will continue. Add Carafate. Patient states that she has been taking Advil every day for the past couple weeks, may be contributing to her pain. At this time pain is controlled. Type 2 diabetes mellitus, chronic -Accu-Chek before meals at bedtime, sliding scale, cover as needed. -Patient is on home Januvia, will continue on discharge. -Patient advised to stop metformin secondary to abdominal pain and nausea and vomiting. Will follow blood sugar trends. -Check A1c. Will likely need to be placed on another diabetic medication upon discharge. Continue to follow. Hypertension, chronic -Patient does not take anything for blood pressure at home. -Will start amlodipine 5 mg PO daily. -Systolic consistently in the 180s, this could be secondary to pain as well as episodes of eileen. -Will continue to monitor blood pressure trends. CAD with history of cardiac stent placement -Continue Brilinta. -Stable at this time. Acute back pain -Patient complains of right posterior pain x 3 days. Denies any known trauma or etiology. -On assessment there is a nodule that is tender to palpation. No previous images on review. -Will add CT of the lumbar spine. To follow. -Pain control with IV morphine as needed for pain scale. History of bipolar depression with intermittent eileen currently in manic state -Psychiatry has been consulted, will visit patient today. -She has recently stopped taking marijuana. Does not take any psychiatric medications at home. -Appreciate any further input or recommendations from psychiatric standpoint. -Supportive care. Prophylaxis: SCDs. Ambulation.
[2018-01-23] MEDS ORDERED: Aluminum/Magnesium/Simethacone Susp 30 ML UDC PO ONE (12:37)
[2018-01-23] MEDS ORDERED: Aluminum/Magnesium/Simethacone Susp 30 ML UDC PO PRN (12:37)
[2018-01-23] MEDS ORDERED: Dextrose 50% in Water 50 ML Vial IV.PUSH PRN (12:38)
[2018-01-23] MEDS: amLODIPine 5 MG Tablet PO SCH (13:57)
[2018-01-23] MEDS: Pantoprazole Inj 40 MG Vial IV.PUSH SCH (13:58)
[2018-01-23] MEDS ORDERED: ARIPiprazole 5 MG Tablet PO ONE (14:01)
--- NOTE | 2018-01-23 14:14 | P.CONPSY ---
Provisional Diagnosis Admission Date: January 23, 2018 06:44 [place].: Bipolar disorder, cannabis use disorder History of Present Illness Service: Medicne Primary Care Provider: Anastasiia Maria MD Chief Complaint: Abdominal pain, n/v History of Present Illness: The patient is a 52-year-old woman, domiciled with her in [place], no kids, unemployed at the moment, with a psychiatric history of bipolar disorder, cannabis use disorder, 1 previous psychiatric hospitalizations , no previous suicidal attempts, she is known psychotropic, medical history diabetes, CAD, hypercholesterolemia, who presents to the emergency department for complaint of multiple episodes of vomiting and dry heaves clear sputum and gastric contents without coffee-ground emesis hematemesis or bilious some. Patient with chronic abdominal pain has been seen in the emergency department numerous times for same complaint also has history of diabetes hypertension CAD with stent placement is currently on Brilinta also has been evaluated for gastroparesis diabetes and marijuana induced hyperemesis syndrome. No fever. Patient states symptoms began at 12 midnight tonight. Patient has been seen numerous times for same complaint as recently as January 09 in January [address] abdomen pelvis which revealed no acute process. Patient is status post cholecystectomy. Patient's had abdominal surgeries related to history of diverticulitis. Patient does not report any diarrhea melena or hematochezia. Patient does not report dysuria frequency urgency. Family member at bedside reports patient has the symptoms almost daily. Patient is not seen in the hospital daily. Patient has been referred to [facility] for chronic pain syndrome of unclear etiology. The patient was consulted to psychiatry to address mood swings. On psychiatric evaluation the patient is calm , cooperative, but with very prominent labile affect and seems to be quite emotionally this regulated with alternating periods of tears and inappropriate laughter, but mostly logical, coherent and relevant. She reports to be in a better mood now, but says that she has been very frustrated given her medical conditions and the fact that she has been unemployed for some time. She says that she has several economical and family stressors, "but I am is struggling and trying to the best I can". Patient reports that she has history of bipolar disorder, she was treated with Depakote and Seroquel for several years, which he stopped this medication due to increased weight and sedation and she has been prescribed marijuana since then with good results. She has noted that in the last days she has been having frequent mood swings and difficulty sleeping at night, and she has been quite depressed, but denies hopelessness, denies helplessness, denies worthlessness, she denies guiltiness, she denies suicidal and homicidal ideation, she denies visual and auditory hallucinations. At this moment I did not perceive any delusions, no paranoia, no pressured speech. As per nurse in charge, the patient is morning was quite upset, screaming, verbally hostile without evident reason. She was intervened by PA and was able to respond to verbal de-escalation techniques. I offered to the patient to treat her with a low dose of Abilify and she agreed with it. PPHx:unemployed at the moment, with a psychiatric history of bipolar disorder, cannabis use disorder, 1 previous psychiatric hospitalizations, no previous suicidal attempts, she is known psychotropic, PMHx: medical history diabetes, CAD, hypercholesterolemia Family Hx: Grandmother with bipolar disorder Substance Hx: Patient reports daily use of marijuana, denies alcohol and other illegal drug Social Hx: Patient was born and raised in [place], she lives in [place] with her , no kids, employed at the moment highest level of education is 11th grade [employer] - History History Provided By: Patient - Medical History Medical History: Medical History (Last Reviewed 01/23/18 @ 12:45 by Ladonna Moura) CAD (coronary artery disease) Diabetes High cholesterol - Surgical History Surgical History: Surgical History (Last Reviewed 01/23/18 @ 12:45 by Ladonna Moura) H/O heart artery stent H/O lumpectomy H/O resection of large bowel H/O: H/O: hysterectomy History of cardiac catheterization History of cholecystectomy History of tubal ligation - Family History Family History: Family History (Last Reviewed 01/23/18 @ 12:45 by Ladonna Moura) Other No pertinent family history - Tobacco History Second Hand Smoke Exposure: No Smoking Status: Unknown if ever smoked Tobacco Type: Cigarettes - Alcohol History How Often Do You Have a Drink Containing Alcohol: Never - Substance Use History Substance History: Unable to Obtain - Travel History Recent Travel in the [place] Within the Last 8 Weeks: No Recent Travel Out of the Country Within the Last 8 Weeks: No - Immunization History Tetanus Immunization: <5 Years Medications and Allergies Active Medications: Active Medications Al Hydrox/Mg Hydrox/Simethicone (Mag-Al Plus Susp Liq) 30 ml PO Q6H PRN PRN Reason: DYSPEPSIA Al Hydroxide/Mg Hydroxide (Milk Of Magnesia Liq) 30 ml PO Q12H PRN PRN Reason: Mild Constipation Amlodipine Besylate (Norvasc) 5 mg PO DAILY [facility] Last Admin: 01/23/18 13:57 Dose: 5 mg Atorvastatin Calcium (Lipitor) 40 mg PO DAILY [facility] Bisacodyl (Dulcolax Supp) 10 mg RECTAL DAILY PRN PRN Reason: SEVERE CONSITIPATION Dextrose (D50w Vial) 50 ml IV.PUSH UNSCH PRN PRN Reason: PER HYPOGLYCEMIA PROTOCOL Glucagon (Glucagon Inj) 1 mg OTHER PRN PRN PRN Reason: for Hypoglycemia Protocol Sodium Chloride (Ns Inj) 1,000 mls @ 100 mls/hr IV.CONT .Q10H [facility] Last Admin: 01/23/18 07:16 Dose: 100 mls/hr Piperacillin/Tazobactam/Dextrose (Zosyn 4.5 Gm Premix) 4.5 gm in 100 mls @ 200 mls/hr IV.SIG Q6H [facility] Insulin Aspart (Novolog Insulin Correctional Sugar Inj) 0 unit SQ ACHS [facility]; Protocol Lactulose (Lactulose Liq) 30 ml PO DAILY PRN PRN Reason: SEVERE CONSITIPATION Metoclopramide HCl (Reglan Inj) 10 mg IV.PUSH Q8HR [facility]; Protocol Last Admin: 01/23/18 14:00 Dose: 10 mg Morphine Sulfate (Morphine Inj) 2 mg IV.PUSH Q4H PRN PRN Reason: PAIN 6-10 Last Admin: 01/23/18 10:28 Dose: 2 mg Ondansetron HCl (Zofran Inj) 4 mg IV.PUSH Q6H PRN PRN Reason: NAUSEA OR VOMITING Last Admin: 01/23/18 10:01 Dose: 4 mg Pantoprazole Sodium (Protonix Inj) 40 mg IV.PUSH Q24H [facility] Last Admin: 01/23/18 13:58 Dose: 40 mg Senna/Docusate Sodium (Adali-Colace) 1 tab PO BID [facility] Last Admin: 01/23/18 09:57 Dose: 1 tab Sennosides (Senokot) 17.2 mg PO Q12H PRN PRN Reason: Moderate Constipation Sodium Chloride (Ns Flush) 2 ml IV.FLUSH PRN PRN PRN Reason: FLUSH AFTER USING IV ACCESS Last Admin: 01/23/18 07:17 Dose: 2 ml Sodium Chloride (Ns Flush) 2 ml IV.FLUSH PRN PRN PRN Reason: FLUSH AFTER USING IV ACCESS Sodium Chloride (Ns Flush) 2 ml IV.FLUSH BID [facility] Last Admin: 01/23/18 10:30 Dose: 2 ml Sucralfate (Carafate) 1 gm PO ACHS [facility] Ticagrelor (Brilinta) 90 mg PO BID [facility] Trimethobenzamide HCl (Tigan Ing) 200 mg IM Q6H PRN PRN Reason: NAUSEA/VOMITING Allergies Allergy/AdvReac Type Severity Reaction Status Date / Time acetaminophen Allergy Severe Itching Verified 01/13/18 07:16 hydrocodone Allergy Severe ITCHING Verified 01/13/18 07:16 lactose Allergy Severe Gastrointestinal Verified 01/13/18 07:16 Upset oxycodone Allergy Severe Itching Verified 01/13/18 07:16 prochlorperazine Allergy Severe Hallucinati Verified 01/13/18 07:16 ons propoxyphene Allergy Severe Itching Verified 01/13/18 07:16 Home Medications Medication Instructions Recorded Confirmed Type atorvastatin 40 mg PO DAILY 01/09/18 01/23/18 History sitagliptin [Januvia] 50 mg PO DAILY 01/09/18 01/23/18 History ticagrelor [Brilinta] 90 mg PO BID 01/09/18 01/23/18 History Exam Vital signs: Vital Signs 01/23/18 04:49 01/23/18 06:21 01/23/18 07:17 Pulse Rate 134 H 106 H 97 H Respiratory Rate 20 16 Blood Pressure 144/108 H 177/75 H 183/85 H Pulse Oximetry 97 98 Intake & Output 01/22/18 01/23/18 01/23/18 18:59 06:59 18:59 Intake Total 2099 Balance 2099 Weight 72.7 kg Intake: IV 2099 Zosyn 4.5 GM Premix 4.5 gm In 100 / 100 100 ml @ 200 mls/hr IV.SIG ONCE ONE Rx#:[id number] NS Inj 1,000 ML @ 1000 mls/hr 1999 IV.SIG BOLUS LEDY Rx#:[id number] Narrative: No tremors, no EPS, no stiffness, no psychomotor agitation or retardation, no catatonia, no gait disturbance - Constitutional no acute distress, mild distress - Routine HEENT Exam Head: Present: normocephalic, atraumatic Eye: Present: EOMI, PERRL ENT: Present: mucous membranes moist Mental Status Examination Appearance: Appropriate Consciousness: Alert Orientation: x4 Motor Activity: Normal gait Speech: Unremarkable Language: Adequate Fund of Knowledge: Adequate Attention and Concentration: Adequate Memory: Unremarkable Mood: Irritable Affect: Labile Thought Process & Associations: Intact Thought Content: Appropriate Hallucination Type: None Delusion Type: None Suicidal Ideation: No Suicidal Plan: No Suicidal Intention: No Homicidal Ideation: No Homicidal Plan: No Homicidal Intention: No Insight: Fair Judgment: Impulsive Assessment and Plan - Assessment (1) Chronic bipolar disorder Code(s): F31.9 - Bipolar disorder, unspecified Status: Acute (2) Chronic bipolar affective disorder Code(s): F31.9 - Bipolar disorder, unspecified Status: Acute (3) Adjustment disorder with disturbance of conduct Code(s): F43.24 - Adjustment disorder with disturbance of conduct Status: Acute - Plan Plan: On my psychiatric evaluation today the patient presents emotionally this regulated, with prominent labile affect, mood swings, irritability, but logical , coherent, relevant and goal-directed. The patient reports depression in the context of the frustration of the hospitalization and also lack of employment. However, she denies hopelessness, denies helplessness, denies worthlessness, denies anhedonia, denies suicidal and homicidal ideation, denies visual and auditory hallucinations at this moment. She is logical, coherent and relevant. There is no evidence of pressured speech, paranoia, delusions, disorganized behavior or speech at this moment. As per nursing charge, the patient has been verbally hostile, at times pressure, loud, but redirectable. She has a psychiatric history of bipolar disorder, 1 previous psychiatric hospitalizations , no previous suicide attempts, she has not been in psychotropics for many years now, he has been managing her bipolar disorder with "marijuana". Patient seems to be in a hypomanic state, she does not really meet criteria for involuntary psychiatric admission, but I have offered to the patient to start her on Abilify 5 mg daily for mood stabilization. She agrees with it. She can benefit of a mood stabilizer such as lithium or Depakote, but she prefers to hold and explore continue with Abilify without these medications. Extensive support, motivational psych education provided. Case discussed with primary medical team. We will follow-up. Justification for Continued Inpatient Stay: No admission is indicated.
[2018-01-23 16:41] LABS: Hemoglobin A1c 7.4 % (4.3-6.0)
--- NOTE | 2018-01-23 17:12 | CT ---
EXAM DATE: 01/23/2018 5:07 PM EST AGE/SEX: 52 years / Female INDICATIONS: Lower back pain. CLINICAL DATA: This is the patient's initial encounter. Patient reports that signs and symptoms have been present for 3 weeks and indicates a pain score of 4/10. MEDICAL/SURGICAL HISTORY: Diabetes. Cardiovascular disease. . Coronary artery stent. sect ion. Colon resection. Tubal ligation. Hysterectomy. Cholecystectomy. RADIATION DOSE: 40.31 CTDI (mGy) COMPARISON: No prior exams available for comparison. TECHNIQUE: Contiguous axial images were acquired with a multirow detector CT scanner without contras t. Multiplanar reconstructions in the sagittal and coronal plane were also performed. Using automate d exposure control and adjustment of the mA and/or kV according to patient size, radiation dose was k ept as low as reasonably achievable to obtain optimal diagnostic quality images. DICOM format image data is available electronically for review and comparison. FINDINGS: Vertebrae: Normal vertebral body height. Alignment: Normal. No subluxation. T12-L1: The thecal sac has a normal diameter. No evidence of disc bulge or protrusion. The neural foramina are patent bilaterally. L1-L2: The thecal sac has a normal diameter. No evidence of disc bulge or protrusion. The neural f oramina are patent bilaterally. L2-L3: The thecal sac has a normal diameter. No evidence of disc bulge or protrusion. The neural f oramina are patent bilaterally. L3-L4: Asymmetric broad-based left-sided protrusion abuts the ventral thecal sac without canal steno sis. The neural foramina are patent bilaterally. L4-L5: Mild broad-based protrusion abuts ventral thecal sac without canal stenosis. Moderate facet a rthropathy. The neural foramina are patent bilaterally. L5-S1: Mild broad-based protrusion abuts ventral thecal sac without canal stenosis. Moderate facet a rthropathy. The neural foramina are patent bilaterally. CONCLUSION: 1. Protrusions at L3-4 and L4-5 levels without canal stenosis. 2. Facet arthropathy lower lumbar spine. 3. No compression fracture or spondylolisthesis. Electronically signed by: Isauro Perez MD 01/23/2018 5:11 PM EST
[2018-01-23] MEDS: Insulin NovoLOG Aspart Correctional Sugar Inj SQ SCH ×2 (17:33→22:11)
[2018-01-23] MEDS: Piperacil/Tazo 4.5 GM Premix 4.5 GM/100 ML BAG IV.SIG SCH (17:40)
[2018-01-23] MEDS: Sucralfate 1 GM Tablet PO SCH ×2 (17:41→20:56)
--- NOTE | 2018-01-23 19:53 | ECG ---
Date Performed: 01/23/2018 Time Performed: 05:44:45 PTAGE: 52 years EKG: Sinus rhythm NORMAL ECG PREVIOUS TRACING : 01/13/2018 23.34 Since the previous tracing, no significant change noted DOCTOR: Irvin Abraham Interpretating Date/Time 01/23/2018 19:52:29
[2018-01-23] MEDS ORDERED: Temazepam 15 MG Capsule PO ONE (22:25)
[2018-01-24] MEDS: Piperacil/Tazo 4.5 GM Premix 4.5 GM/100 ML BAG IV.SIG SCH ×3 (00:09→12:25)
[2018-01-24 00:36] VITALS: O2SAT 98
[2018-01-24] MEDS: Sod Chloride 0.9% Inj 1,000 ML IV.CONT SCH (03:52)
[2018-01-24] MEDS: Morphine Inj 4 MG/ML Vial IV.PUSH PRN ×2 (03:52→07:47)
[2018-01-24 06:50] LABS: Chloride 107 meq/L (98-107); Potassium 3.7 meq/L (3.5-5.1); Sodium 140 meq/L (136-145)
[2018-01-24 06:51] LABS: Baso % (Auto) 0.2 % (0.0-2.0); Eos # (Auto) 0.2 th/mm3 (0.0-0.4); Eos % (Auto) 2.2 % (0.0-4.0); Hematocrit 37.5 % (35.0-46.0); Lymph # (Auto) 3.1 th/mm3 (1.0-4.8); Lymph % (Auto) 35.4 % (9.0-44.0); Mean Corpuscular HGB Conc 34.7 % (32.0-36.0); Mean Corpuscular Hemoglobin 30.5 pg (27.0-34.0); Mean Corpuscular Volume 88.2 fL (80.0-100.0); Mono # (Auto) 0.5 th/mm3 (0.0-0.9); Mono % (Auto) 5.2 % (0.0-8.0); Red Blood Count 4.25 mil/mm3 (4.00-5.30); Red Cell Distribution Width 13.6 % (11.6-17.2); White Blood Count 8.8 th/mm3 (4.0-11.0)
[2018-01-24 06:57] LABS: Platelet Count 228 th/mm3 (150-450)
[2018-01-24 07:08] LABS: Alanine Aminotransferase 28 U/L (10-53); Albumin 3.6 g/dL (3.4-5.0); Alkaline Phosphatase 75 U/L (45-117); Anion Gap 8 meq/L (5-15); Aspartate Aminotransferase 23 U/L (15-37); Blood Urea Nitrogen 7 mg/dL (7-18); Calcium 8.2 mg/dL (8.5-10.1); Carbon Dioxide 25.3 meq/L (21.0-32.0); Glomerular Filtration Rate Greater Than 89 mL/min (>89); Glucose,Random 132 mg/dL (74-106); Total Protein 6.5 g/dL (6.4-8.2)
[2018-01-24] MEDS: Senna/Docusate Sodium 8.6/50 MG Tablet PO SCH (08:00)
[2018-01-24] MEDS: Sucralfate 1 GM Tablet PO SCH ×2 (08:01→12:25)
[2018-01-24] MEDS: amLODIPine 5 MG Tablet PO SCH (08:01)
[2018-01-24] MEDS: Insulin NovoLOG Aspart Correctional Sugar Inj SQ SCH ×2 (08:01→12:25)
[2018-01-24] MEDS ORDERED: Ibuprofen 600 MG Tablet PO PRN (08:21)
[2018-01-24] MEDS ORDERED: ARIPiprazole 5 MG Tablet PO SCH (09:00)
[2018-01-24 09:32] VITALS: BP 154/75; PULSE 89; RESP 18; TEMP 96.5
[2018-01-24] MEDS: Pantoprazole Inj 40 MG Vial IV.PUSH SCH (12:26)
--- NOTE | 2018-01-24 16:55 | P.DS ---
Date of admission: 01/23/18 15:51 Primary care physician: Anastasiia Maria MD Attending physician on discharge: Vida Zuniga Anticipated date of discharge: 01/24/18 Brief History from admission: This is a 52-year-old female patient with a known medical history of diabetes, hypertension, hyperlipidemia and bipolar depression who presented to the ED with complaints of continued abdominal pain, nausea and vomiting. Patient states over the last month she has been having continued abdominal pain, states that she has been in and out of the hospital without relief. She states that she was hospitalized in mid-December and at that time a CT abdomen/pelvis was done showing no acute issues. She was given Zofran and sent home. Patient also has had a history of CAD with history of cardiac stent placement x 3 this year, she follows with Dr. Vilchis, cardiology, in the outpatient setting. The last cardiac catheterization was in October of this year. She is on Brilinta. Follows closely with her primary care physician for her diabetes and hypertension control, she states she is recently been placed on metformin and since that time she has been having above symptoms of abdominal pain, nausea and vomiting as well as a subjective rash to her chest. It should also be noted that patient does smoke marijuana several times a day, she states that she has recently weaned herself off of this, thinking that maybe this will improve her symptoms. Since that time she has had increasing anxiety as well as she recently just lost her job. Patient has a history of bipolar depression , she does not currently follow with a psychiatrist, she does not currently take anything for her bipolar, she states that the marijuana was keeping her stable. Requested psychiatry to come evaluate patient she appears to be in a manic state at this time. Patient also complains of back pain localized in her right posterior area x 3 days, with a knot shes noticed with tenderness to palpation. No previous imaging done on this area. DS: Diagnosis - Discharge Diagnosis (1) Nausea & vomiting Status: Acute DS: Medications - Discharge Medications Prescriptions: amlodipine [Norvasc] 5 mg PO DAILY #30 tab aripiprazole 5 mg PO DAILY #30 tab DS: Summary Hospital Course: 52-year-old female who is well-known to the hospital for recurrent admissions to the hospital for intractable nausea and vomiting. Patient indicates that she originally came to the hospital because she found a lump in her right posterior flank and she is concerned about that so she came to the hospital for evaluation. Patient had full workup done in emergency department with CT scan of the spine, CT of the abdomen without any acute abnormalities or findings. It was recommended by the ER physician that the patient be admitted for intractable nausea and vomiting. The patient was admitted with Zofran, pain control. Patient was tolerating liquids. Because of the patient's bipolar disorder psychiatry was consulted for further recommendations. They indicate that the patient does not have any condition at this point that would consider admission. They did recommend Amber 5 for further treatment. Upon evaluating the patient today she is tolerating a diet. She does understand that the likely reason for her intractable nausea vomiting is due to her chronic marijuana use. Indicates that she is weaning herself off and she states that she has quit over a month ago. However she still continues to have positive marijuana testing. Patient clinically stable at this time. Tolerating diet. Discussed with the patient discharge planning and she is in agreement. We will plan discharge accordingly. - Time Spent with Patient Total time spent providing and/or coordinating discharge services: Greater than 30 minutes - Quality: VTE Deep Vein Thrombosis/Pulmonary Embolism Present on Admission: No Exam Vital signs: Vital Signs 01/23/18 20:00 01/24/18 00:00 01/24/18 09:31 Temperature 98.5 F 98.6 F 96.5 F L Pulse Rate 95 H 102 H 89 Respiratory Rate 16 16 18 Blood Pressure 157/94 H 150/97 H 154/75 H Pulse Oximetry 99 98 98 Intake & Output 01/23/18 01/24/18 01/24/18 18:59 06:59 18:59 Intake Total 4361 / 4361 2200 / 2200 800 / 800 Balance 4361 / 4361 2200 / 2200 800 / 800 Intake: IV 3180 / 3180 1200 / 1200 800 / 800 NS Inj 1,000 ML @ 100 mls/hr IV 980 / 980 1000 / 1000 800 / 800 .CONT .Q10H [facility] Rx#:[id number] Zosyn 4.5 GM Premix 4.5 gm In 200 / 200 200 / 200 100 ml @ 200 mls/hr IV.SIG Q6H [facility] Rx#:[id number] NS Inj 1,000 ML @ 1000 mls/hr 1999 / 1999 IV.SIG BOLUS [facility] Rx#:[id number] Oral 1181 / 1181 1000 / 1000 Other: # Voids 7 3 Date of Last Bowel Movement 01/23/18 01/23/18 Narrative: GENERAL: Well-developed, well-nourished, in no acute distress. alert and orientated HEENT: Head is normocephalic without any lesions or masses noted. Facial features are symmetric. Eyes: Extraocular muscles are intact. Conjunctivae were clear. NECK: Supple without any masses. Trachea midline no deviation. No JVD, CARDIAC: Regular rhythm, regular rate. S1/S2 are heard. No murmurs gallops or rubs. LUNGS: Clear to auscultation bilaterally. No wheeze, rhonchi or rales. No use of accessory muscles on inspiration or expiration. ABDOMEN: Soft, nontender. Nondistended. Bowel sounds heard in all 4 quadrants. No organomegaly or masses. Negative rebound, negative guarding NEUROLOGY: Mood and affect appear appropriate. Cranial nerves II through XII grossly intact. Moving all extremities, speech is clear Results Procedures completed during hospitalization: none Labs on day of discharge: Labs from last 24 hours 01/24/18 01/24/18 01/24/18 11:49 07:21 05:45 CBC w Diff WBC RBC Hgb Hct MCV MCH MCHC RDW Plt Count MPV Neut % (Auto) Lymph % (Auto) Snyder % (Auto) Eos % (Auto) Baso % (Auto) Neut # (Auto) Lymph # (Auto) Snyder # (Auto) Eos # (Auto) Baso # (Auto) WBC Differential Differential Comment Sodium 140 Potassium 3.7 Chloride 107 Carbon Dioxide 25.3 Anion Gap 8 BUN 7 Creatinine 0.67 Estimated GFR Greater than 89 POC Glucose 162 H 124 H Random Glucose 132 H D Hemoglobin A1c Lactic Acid Calcium 8.2 L D Total Bilirubin 0.5 AST 23 ALT 28 Alkaline Phosphatase 75 Total Protein 6.5 D Albumin 3.6 D 01/24/18 01/23/18 01/23/18 05:45 22:10 18:00 CBC w Diff Auto diff final WBC 8.8 RBC 4.25 Hgb 13.0 D Hct 37.5 MCV 88.2 MCH 30.5 MCHC 34.7 RDW 13.6 Plt Count 228 D MPV 9.0 Neut % (Auto) 57.0 Lymph % (Auto) 35.4 Snyder % (Auto) 5.2 Eos % (Auto) 2.2 Baso % (Auto) 0.2 Neut # (Auto) 5.0 Lymph # (Auto) 3.1 Snyder # (Auto) 0.5 Eos # (Auto) 0.2 Baso # (Auto) 0.0 WBC Differential . Differential Comment . Sodium Potassium Chloride Carbon Dioxide Anion Gap BUN Creatinine Estimated GFR POC Glucose 129 H Random Glucose Hemoglobin A1c Lactic Acid 3.4 H Calcium Total Bilirubin AST ALT Alkaline Phosphatase Total Protein Albumin 01/23/18 01/23/18 17:20 09:00 CBC w Diff WBC RBC Hgb Hct MCV MCH MCHC RDW Plt Count MPV Neut % (Auto) Lymph % (Auto) Snyder % (Auto) Eos % (Auto) Baso % (Auto) Neut # (Auto) Lymph # (Auto) Snyder # (Auto) Eos # (Auto) Baso # (Auto) WBC Differential Differential Comment Sodium Potassium Chloride Carbon Dioxide Anion Gap BUN Creatinine Estimated GFR POC Glucose 107 Random Glucose Hemoglobin A1c 7.4 H Lactic Acid Calcium Total Bilirubin AST ALT Alkaline Phosphatase Total Protein Albumin Preliminary micro results at discharge 01/23/18 08:50 Aerobic Blood Culture - Preliminary Blood - Peripheral No growth in 1 day Anaerobic Blood Culture - Preliminary No growth in 1 day 01/23/18 09:00 Aerobic Blood Culture - Preliminary Blood - Peripheral No growth in 1 day Anaerobic Blood Culture - Preliminary No growth in 1 day - Impressions ITS Impressions Lumbar Spine CT 01/23/18 00:00 CONCLUSION: 1. Protrusions at L3-4 and L4-5 levels without canal stenosis. 2. Facet arthropathy lower lumbar spine. 3. No compression fracture or spondylolisthesis. Abdomen/Pelvis CT 01/23/18 04:59 CONCLUSION: 1. No acute abnormality. 2. Partial left hemicolectomy. 3. Scattered colonic diverticulosis without acute inflammation. 4. Prior cholecystectomy. Discharge Plan - Discharge Disposition Patient Disposition: 01 Discharge Home - Discharge Condition Condition: Stable - Discharge Order Discharge Orders: Discharge Order (Routine); Ordered 01/24/18 Ordered By: Lj Chavarria - Discharge Details Anticipated Discharge Date: 01/24/18 - Physicians Team Primary Care Provider: Anastasiia Maria Attending Provider: Vida Zuniga Other Providers: Star Whitehead MD
== END 2018-01-24 12:55 | disposition home or self-care (01) ==
LOC: PHEDA 04:43 → PHED 04:43 → PH3 08:20
PROVIDERS: ADMIT Internal Medicine; ATTEND Internal Medicine